=== PATIENT | female | born 1995 | race Caucasian/White ===

== ENCOUNTER 2020-10-14 14:27 | Emergency (ER) | payer OTHER ==
[2020-10-14 15:15] LABS: Absolute Lymphocytes (CBC) 1.8 K/uL (0.7-4.9); Basophils % 0.8 % (0-1.3); Hematocrit 34.8 % (36.0-45.0); Lymphocytes % 20.4 % (15.3-44.8); RBC Red Blood Cell Count 4.15 M/uL (3.86-4.86)
[2020-10-14 15:29] LABS: ALT/SGPT 15 U/L (12-78); AST/SGOT 12 U/L (15-37); Albumin 3.5 g/dL (3.4-5.0); Alkaline Phosphatase 81 U/L (45-117); BUN Blood Urea Nitrogen 4 mg/dL (7-18); Bicarbonate 23 mmol/L (21-32); Bilirubin Direct 0.1 mg/dL (0-0.2); Bilirubin Total 0.4 mg/dL (0.2-1.0); Glucose Level 99 mg/dL (74-106); Lipase 110 U/L (73-393); Potassium 3.6 mmol/L (3.5-5.1); Protein, Total 7.6 g/dL (6.4-8.2); Sodium Level 138 mmol/L (136-145)
[2020-10-14 15:52] LABS: Urine Blood NEGATIVE (NEG); Urine Glucose NEGATIVE (NEG); Urine Protein TRACE (NEG); Urine Specific Gravity 1.015 (1.005-1.030); Urine pH >8.5 (5.0-7.0)
[2020-10-14 15:55] LABS: Urine Amorphous Sediment 4+ /HPF (NONE SEEN); Urine Bacteria <20 /HPF (<20); Urine Culture Reflex Order NOT NEEDED; Urine RBC <5 /HPF (NONE SEEN)
[2020-10-14] MEDS ORDERED: LIDOCAINE VISCOUS 2% SOLN 15 ML UDC ONE (16:19)
[2020-10-14] MEDS ORDERED: NA CHLORIDE 0.9% 1,000 ML ONE (16:19)
[2020-10-14] MEDS ORDERED: MAGNES/ALUMIN/SIMET 30ML UCUP ONE (16:19)
[2020-10-14] MEDS ORDERED: PROMETHAZINE INJ 25 MG/ML AMP ONE (16:19)
[2020-10-14 16:30] LABS: HCG, Quantitative 17959 mIU/mL (1-3)
--- NOTE | 2020-10-14 18:52 | EDPHYS ---
Physician Documentation [facility] Name: Abigail Arias Age: 25 yrs Sex: Female : 1995 Arrival Date: 10/14/2020 Time: 14:29 Bed 26 Private MD: SANG Physician Mert Plasencia HPI: 10/14 16:20 This 25 yrs old Female presents to ER via Ambulatory with complaints of snw Epigastric Pain, Back Pain, Vomiting. 16:20 The patient presents with abdominal pain in the epigastric area. Onset: The snw symptoms/episode began/occurred gradually, 3 day(s) ago, and became persistent. The symptoms do not radiate. Associated signs and symptoms: Pertinent positives: nausea and vomiting. The symptoms are described as achy. Severity of pain: At its worst the pain was moderate severe. The patient has not experienced similar symptoms in the past. It is unknown whether or not the patient has recently seen a physician. . Historical: - Allergies: 14:46 No Known Allergies; jd3 - Home Meds: 14:46 None [Active]; jd3 - PMHx: 14:46 None; jd3 - PSHx: 14:46 c section; jd3 - Immunization history:: Adult Immunizations up to date. - Social history:: Smoking status: Patient reports the use of cigarette tobacco products, smokes one-half pack cigarettes per day. ROS: 16:19 Constitutional: Negative for fever, chills, and weight loss, Eyes: Negative for injury, snw pain, redness, and discharge, ENT: Negative for injury, pain, and discharge, Neck: Negative for injury, pain, and swelling. 16:19 Back: Negative for injury and pain, : Negative for injury, bleeding, discharge, and swelling, MS/Extremity: Negative for injury and deformity, Skin: Negative for injury, rash, and discoloration, Neuro: Negative for headache, weakness, numbness, tingling, and seizure. 16:19 Cardiovascular: Positive for chest pain. 16:19 Respiratory: Positive for shortness of breath, at rest. 16:19 Abdomen/GI: Positive for nausea and vomiting. 16:19 Psych: Positive for anxiety, panic attacks. Exam: 16:19 Constitutional: This is a well developed, well nourished patient who is awake, alert, snw and in no acute distress. Head/Face: Normocephalic, atraumatic. Eyes: Pupils equal round and reactive to light, extra-ocular motions intact. Lids and lashes normal. Conjunctiva and sclera are non-icteric and not injected. Cornea within normal limits. Periorbital areas with no swelling, redness, or edema. ENT: Nares patent. No nasal discharge, no septal abnormalities noted. Tympanic membranes are normal and external auditory canals are clear. Oropharynx with no redness, swelling, or masses, exudates, or evidence of obstruction, uvula midline. Mucous membranes moist. Neck: Trachea midline, no thyromegaly or masses palpated, and no cervical lymphadenopathy. Supple, full range of motion without nuchal rigidity, or vertebral point tenderness. No Meningismus. Chest/axilla: Normal chest wall appearance and motion. Nontender with no deformity. No lesions are appreciated. Cardiovascular: Regular rate and rhythm with a normal S1 and S2. No gallops, murmurs, or rubs. Normal PMI, no JVD. No pulse deficits. Respiratory: Lungs have equal breath sounds bilaterally, clear to auscultation and percussion. No rales, rhonchi or wheezes noted. No increased work of breathing, no retractions or nasal flaring. Back: No spinal tenderness. No costovertebral tenderness. Full range of motion. Skin: Warm, dry with normal turgor. Normal color with no rashes, no lesions, and no evidence of cellulitis. MS/ Extremity: Pulses equal, no cyanosis. Neurovascular intact. Full, normal range of motion. Neuro: Awake and alert, GCS 15, oriented to person, place, time, and situation. Cranial nerves II-XII grossly intact. Motor strength 5/5 in all extremities. Sensory grossly intact. Cerebellar exam normal. Normal gait. 16:19 Abdomen/GI: Inspection: abdomen appears normal, Bowel sounds: normal, Palpation: abdomen is soft and non-tender. 16:19 Psych: Behavior/mood is pleasant, anxious, Affect is animated. Vital Signs: 14:39 BP 101 / 74; Pulse 85; Resp 16; Pulse Ox 100% on R/A; Weight 79.38 kg; Height 5 ft. 4 iw in. (162.56 cm); Pain 9/10; 15:00 BP 110 / 70; Pulse 85; Resp 16; Pulse Ox 100% on R/A; zb 16:00 BP 114 / 66; Pulse 80; Resp 16 S; Pulse Ox 100% on R/A; zb 17:35 BP 105 / 63; Pulse 83; Resp 18; Pulse Ox 99% on R/A; zb 18:35 BP 106 / 57; Pulse 77; Resp 18; Pulse Ox 100% on R/A; zb 14:39 Body Mass Index 30.04 (79.38 kg, 162.56 cm) iw MDM: 14:45 Patient medically screened. mira 18:55 Data reviewed: vital signs, nurses notes. Data interpreted: Pulse oximetry: on room air snw is 99 %. Interpretation: normal. Counseling: I had a detailed discussion with the patient and/or guardian regarding: the historical points, exam findings, and any diagnostic results supporting the discharge/admit diagnosis, lab results, radiology results, the need for outpatient follow up, to return to the emergency department if symptoms worsen or persist or if there are any questions or concerns that arise at home, smoking cessation. Special discussion: Based on the patient's history, exam, and Dx evaluation, there is no indication for emergent intervention or inpatient Tx. It is understood by the patient/guardian that if the Sx's persist or worsen they need to return immediately for re-evaluation. Based on the patient's Hx, exam, and Dx evaluation, there is no indication for emergent surgery or inpatient Tx. It is understood by the patient/guardian that if the Sx's persist or worsen they need to return immediately for re-evaluation. Based on the history and exam findings, there is no indication for further emergent testing or inpatient evaluation. I discussed with the patient/guardian the need to see the OB Gyne specialist for further evaluation of the symptoms. I discussed with the patient/guardian the need to see the primary care provider for further evaluation of the symptoms. 10/14 14:42 Order name: Basic Metabolic Panel; Complete Time: 16:41 snw 10/14 14:42 Order name: CBC with Diff; Complete Time: 15:21 snw 10/14 14:42 Order name: Hepatic Function; Complete Time: 16:41 snw 10/14 14:42 Order name: Lipase; Complete Time: 16:41 snw 10/14 14:42 Order name: Urine Microscopic Only; Complete Time: 15:56 snw 10/14 15:20 Order name: Urine Dipstick--Ancillary (enter results) 10/14 15:20 Order name: Urine --Ancillary (enter results) 10/14 15:21 Order name: Urine Dipstick-Ancillary; Complete Time: 15:56 EDMS 10/14 15:21 Order name: Urine --Ancillary; Complete Time: 15:56 EDMS 10/14 15:34 Order name: Add On-Lab snw 10/14 15:52 Order name: HCG, Quantitative; Complete Time: 16:41 EDMS 10/14 17:44 Order name: Matter Eval Tm 1 EDDC 10/14 14:42 Order name: IV Saline Lock; Complete Time: 15:07 snw 10/14 14:42 Order name: Labs collected and sent; Complete Time: 15:07 snw 10/14 14:42 Order name: Urine Test (obtain specimen); Complete Time: 15:26 snw 10/14 14:42 Order name: Urine Dipstick-Ancillary (obtain specimen); Complete Time: 15:26 snw Administered Medications: 16:10 Drug: NS 0.9% 1000 ml Route: IV; Rate: 1 bolus; Site: right antecubital; zb 17:20 Follow up: Response: No adverse reaction; IV Status: Completed infusion; IV Intake: zb 1000ml 16:10 Drug: GI Cocktail without - (Maalox Suspension 30 ml, Lidocaine Liquid 2 % 15 zb ml) Route: PO; 17:02 Follow up: Response: No adverse reaction zb 16:10 Drug: Phenergan 6.25 mg Route: IVP; Site: right femoral; zb 16:40 Follow up: Response: No adverse reaction; Nausea unchanged zb Disposition: 10/15 09:28 Co-signature as Attending Physician, Mert Plasencia MD I agree with the assessment and mira plan of care. Disposition: 10/14/20 18:51 Discharged to Home. Impression: related conditions, unspecified, first trimester, Chest pain, unspecified. - Condition is Stable. - Discharge Instructions: Nonspecific Chest Pain, Nausea and Vomiting, Adult, and Smoking, First Trimester of , Rehydration, Adult. - Prescriptions for Tums - take 1 unit by ORAL route 2-3 times daily; 1 bottle. promethazine 25 mg Oral Tablet - take 1 tablet by ORAL route every 6 hours As needed; 20 tablet. - Work release form, Medication Reconciliation Form, Thank You Letter, Antibiotic Education, Prescription Opioid Use form. - Follow up: Emergency Department; When: As needed; Reason: Worsening of condition. Follow up: Private Physician; When: 1 - 2 days; Reason: Recheck today's complaints, Continuance of care, Re-evaluation by your physician. Signatures: Dispatcher [employer] EDDC Mert Plasencia, Neelima Serra MD, cha, SUPERVISOR WATERPROOFING-C SUPERVISOR WATERPROOFING-Csnw Yaya Lance RN RN Denisse Scott RN RN zb Corrections: (The following items were deleted from the chart) 10/14 17:44 16:45 Transvaginal Ob+US.RAD.BRZ ordered. [facility] 19:13 18:51 10/14/2020 18:51 Discharged to Home. Impression: related conditions, zb unspecified, first trimester; Chest pain, unspecified. Condition is Stable. Forms are Medication Reconciliation Form, Thank You Letter, Antibiotic Education, Prescription Opioid Use. Follow up: Emergency Department; When: As needed; Reason: Worsening of condition. Follow up: Private Physician; When: 1 - 2 days; Reason: Recheck today's complaints, Continuance of care, Re-evaluation by your physician. snw
--- NOTE | 2020-10-14 18:52 | ER ---
Nurse's Notes [facility] Name: Abigail Arias Age: 25 yrs Sex: Female : 1995 Arrival Date: 10/14/2020 Time: 14:29 Bed 26 Private MD: Diagnosis: related conditions, unspecified, first trimester;Chest pain, unspecified Presentation: 10/14 14:39 Chief complaint: Patient states: vomiting all weekend and having sharp pains in chest iw and sides and stomach, and is hard to breathe some time, and also is having more panic attacks. Coronavirus screen: headache, vomiting. Ebola Screen: Patient negative for fever greater than or equal to 101.5 degrees Fahrenheit, and additional compatible Ebola Virus Disease symptoms Patient denies exposure to infectious person. Patient denies travel to an Ebola-affected area in the 21 days before illness onset. No symptoms or risks identified at this time. Initial Sepsis Screen: Does the patient meet any 2 criteria? No. Patient's initial sepsis screen is negative. Does the patient have a suspected source of infection? No. Patient's initial sepsis screen is negative. Risk Assessment: Do you want to hurt yourself or someone else? Patient reports no desire to harm self or others. 14:39 Method Of Arrival: Ambulatory iw 14:39 Acuity: TRENT 3 iw 15:30 Onset of symptoms was October 10, 2020. zb Historical: - Allergies: 14:46 No Known Allergies; jd3 - Home Meds: 14:46 None [Active]; jd3 - PMHx: 14:46 None; jd3 - PSHx: 14:46 c section; jd3 - Immunization history:: Adult Immunizations up to date. - Social history:: Smoking status: Patient reports the use of cigarette tobacco products, smokes one-half pack cigarettes per day. Screenin:46 Abuse screen: Denies threats or abuse. Nutritional screening: No deficits noted. jd3 Tuberculosis screening: No symptoms or risk factors identified. Fall Risk Ambulatory Aid- None/Bed Rest/Nurse Assist (0 pts). Gait- Normal/Bed Rest/Wheelchair (0 pts) Mental Status- Oriented to own ability (0 pts). Total Casas Fall Scale indicates No Risk (0-24 pts). Assessment: 14:50 General: Appears in no apparent distress. uncomfortable, Behavior is cooperative, zb anxious, Reports feeling ill for fatigue for. Pain: Complains of pain in xyphoid area and mid-sternal area. Neuro: Level of Consciousness is awake, alert, obeys commands, Oriented to person, place, time. Cardiovascular: Reports chest pain, fatigue, nausea, Capillary refill < 3 seconds in bilateral fingers. Respiratory: Airway is patent Respiratory effort is even, unlabored. GI: Abdomen is round non-distended, Reports upper abdominal pain, epigastric pain, nausea. : No signs and/or symptoms were reported regarding the genitourinary system. EENT: No signs and/or symptoms were reported regarding the EENT system. Derm: Skin is intact, is healthy with good turgor, Skin is pink, warm \T\ dry. Musculoskeletal: Circulation, motion, and sensation intact. 16:10 Reassessment: pt received nausea medication, actively vomiting after taking po zb medication. informed ECP. p. 17:34 Reassessment: Patient appears in no apparent distress at this time. Patient and/or zb family updated on plan of care and expected duration. Pain level reassessed. Patient is alert, oriented x 3, equal unlabored respirations, skin warm/dry/pink. US at bedside. 18:30 Reassessment: Patient appears in no apparent distress at this time. Patient and/or zb family updated on plan of care and expected duration. Pain level reassessed. Patient is alert, oriented x 3, equal unlabored respirations, skin warm/dry/pink. pt resting at bedside. nausea has subsided. 19:00 Reassessment: Patient appears in no apparent distress at this time. Patient and/or zb family updated on plan of care and expected duration. Pain level reassessed. Patient is alert, oriented x 3, equal unlabored respirations, skin warm/dry/pink. pt received D/C information. ambulatory. waiting family in the lobby. Vital Signs: 14:39 BP 101 / 74; Pulse 85; Resp 16; Pulse Ox 100% on R/A; Weight 79.38 kg; Height 5 ft. 4 iw in. (162.56 cm); Pain 9/10; 15:00 BP 110 / 70; Pulse 85; Resp 16; Pulse Ox 100% on R/A; zb 16:00 BP 114 / 66; Pulse 80; Resp 16 S; Pulse Ox 100% on R/A; zb 17:35 BP 105 / 63; Pulse 83; Resp 18; Pulse Ox 99% on R/A; zb 18:35 BP 106 / 57; Pulse 77; Resp 18; Pulse Ox 100% on R/A; zb 14:39 Body Mass Index 30.04 (79.38 kg, 162.56 cm) iw ED Course: 14:29 Patient arrived in ED. as 14:41 Triage completed. iw 14:41 Neelima Zhu FNP-C is PHCP. snw 14:41 Mert Plasencia MD is Attending Physician. snw 14:45 Denisse Das, JOBY is Primary Nurse. zb 14:46 Arm band placed on. jd3 14:46 Patient has correct armband on for positive identification. Bed in low position. Call jd3 light in reach. Side rails up X 1. Pulse ox on. NIBP on. 15:07 Accessed peripheral vein via ultrasound, utilizing dynamic ultrasound technique using jd3 20G Nexia IV catheter ,sterile technique, per hospital protocol. Clean \T\ dry. Dressing intact. Good blood return. Flushes easily. placed to the right AC. 17:46 Matter Eval Tm 1 In Process Unspecified. EDMS 19:00 No provider procedures requiring assistance completed. IV discontinued, intact, zb bleeding controlled, No redness/swelling at site. Pressure dressing applied. Administered Medications: 16:10 Drug: NS 0.9% 1000 ml Route: IV; Rate: 1 bolus; Site: right antecubital; zb 17:20 Follow up: Response: No adverse reaction; IV Status: Completed infusion; IV Intake: zb 1000ml 16:10 Drug: GI Cocktail without - (Maalox Suspension 30 ml, Lidocaine Liquid 2 % 15 zb ml) Route: PO; 17:02 Follow up: Response: No adverse reaction zb 16:10 Drug: Phenergan 6.25 mg Route: IVP; Site: right femoral; zb 16:40 Follow up: Response: No adverse reaction; Nausea unchanged zb Intake: 17:20 IV: 1000ml; Total: 1000ml. zb Outcome: 18:51 Discharge ordered by . snw 19:00 Discharged to home ambulatory. zb 19:00 Condition: good 19:00 Discharge instructions given to Instructed on discharge instructions, follow up and referral plans. medication usage, Demonstrated understanding of instructions, Prescriptions given X 2. 19:13 Patient left the ED. zb Signatures: Dispatcher [employer] Neelima Siddiqi, WILDLIFE FORENSIC GENETICIST-C WILDLIFE FORENSIC GENETICIST-CsnEmily Trevino Irene, RN RN iw Davies, Jonathon, RN RN jd3 Brown, Zipporah, RN RN zbailee Corrections: (The following items were deleted from the chart) 52 19:00 Discharged to home via wheelchair, zb zb 52 19:00 Condition: good zb zb 52 19:00 Discharge instructions given to patient, family, Instructed on discharge zb instructions, follow up and referral plans. medication usage, Demonstrated understanding of instructions, follow-up care, medications, Prescriptions given X 3, zb 19:54 19:00 Reassessment: Patient appears in no apparent distress at this time. Patient zb and/or family updated on plan of care and expected duration. Pain level reassessed. Patient is alert, oriented x 3, equal unlabored respirations, skin warm/dry/pink. pt received D/C information. Family at bedside. ECP discussed information with patient. IV removed. Transported via wheelchair. zb 19: 19:00 LMP N/A - Post-menopause zb zb
--- NOTE | 2020-10-14 19:30 | RAD REPORT ---
EXAM DESCRIPTION: US - Matter Eval Tm 1 - 10/14/2020 5:45 pm CLINICAL HISTORY: Abdominal cramping, COMPARISON: None. FINDINGS: A single intrauterine gestation is identified. Heart rate is 158 bpm. No hematoma, mass or other suspicious finding. [place]-rump length, abdominal circumference and femur length measurements c orrespond to a 13 W 2 D age. LILIANA is 04/19/2021. No suspicion for placental abnormality. Amniotic flui d volume is normal. Gestational sac has a normal configuration. Cervical canal is closed. Uterine size overall is normal. Focal isoechoic mass posterior wall is believed to be contraction rat her than fibroid or the true mass lesion. Right ovary is identified and shows no suspicious finding. No right adnexal mass. Blood or fluid in t he cul de sac. Left ovary is not clearly seen. Bowel gas limits detail. No left adnexal mass seen. IMPRESSION: Single 13 W 2 D intrauterine gestation. LILIANA is 04/19/2021. No intrauterine suspicious finding. No adnexal suspicious finding.
[2020-10-14 23:03] VITALS: BP 106/57; O2SAT 100
== END 2020-10-14 19:13 | disposition home or self-care (01) ==
LOC: ER 14:27
DX: O26.891 Other specified pregnancy related conditions, first trimester (principal); O99.331 Smoking (tobacco) complicating pregnancy, first trimester; F17.210 Nicotine dependence, cigarettes, uncomplicated; Z3A.13 13 weeks gestation of pregnancy
CPT/HCPCS: 96361; 85025; 80048; 36415; 81025; 80076; 84702; 83690; 76801; 96374; 99284; J2550; J7030; 81003; 81015

== ENCOUNTER 2025-01-03 08:46 | Inpatient (IN) | payer OTHER ==
--- OUTSIDE RECORDS SUMMARY | 2025-01-03 08:50 | XMS REPORT | Continuity of Care Document ---
Author Name Unknown Address [address] [place] [address] Organization [facility] thconnect Address [address] [place] [address] Care Team Providers Care Lead Web Developer Name Role Phone Pcp, Patient Does Not Have A Primary Care Physic costa [email or web address] Attending Clinician Unavaila ble DAVID SHI Attending Clinician Unavail able Nurse, Adc Pob Immunization Attending Clinician Unavailable David Shi DO Attending Clinician GIANNA ZAMBRANO Attending Clinician Unavailable CARSON VITAL Attending Clinician UnavailGianna Gomez MD Attending Clinician 2, [facility] Lab Attending Clinician Unavailable Doctor Unassigned, [place] Attending Clinician U navailable GIANNA ZAMBRANO Admitting Clinician Unavailable [email or web address] Admitting Clinician Unavaila ble Payers Payer Name Policy Type Policy Number Effective Date Expirati on Date Source MEDICARE PART A \T\ B [id number] 2013 00:00:00 [place] [id number] 2017 00[facility]00:[id number]00 Problems Condition Name Condition Details Condition Category Status Onset Date Resolution Date Last Treatment Date Treating Clinician Comments Source Previous section Previous section Disease Active 04-15 00:00: 00 [facility] Single liveborn, born in hospital, delivered by section Single liveborn, born in hospital, delivered by section Disease Active 5-25 00:00: 00 [facility] Supervisio n of high-risk with insufficie nt care in third trimester Supervisio n of high-risk with insufficie nt care in third trimester Disease Active 2019-11 00:00: 00 [facility] 39 weeks gestation of 39 weeks gestation of Disease Active 2019-11 00:00: 00 [facility] High-risk in second trimester High-risk in second trimester Disease Active 2019-11 00:00: 00 [facility] 17 weeks gestation of 17 weeks gestation of Disease Active 2019-11 00:00: 00 [facility] Previous section complicati ng Previous section complicati ng Disease Active 2016-11 00:00: 00 [facility] Allergies, Adverse Reactions, Alerts Allergy Name Allergy Type Status Severity Reaction(s) Onset Date Inactive Date Treating Clinician Comments Source none (Not Checked) Propensi ty to adverse reaction to drug Active 04-27 00:00: 00 Allen Hernandez NO KNOWN ALLERGIE S Drug Class Active [facility] Social History Social Habit Start Date Stop Date Quantity Comments Source ASSERTION 2020-07-28 00:00:00 [facility] History of tobacco use 2010-10-22 00:00:00 Cigarette Smoker [facility] Exposure to SARS-CoV-2 (event) Not sure [facility] Tobacco use and exposure 2020-11-12 00:00:00 2020-11-12 00:00:00 Never used [facility] Alcohol intake 2020-11-12 00:00:00 2020-11-12 00:00:00 Ex-drinker (finding) [facility] Tobacco Comment 2020-11-12 00:00:00 2020-11-12 00:00:00 2 ciggs a day [facility] Sex Assigned At 1995 00:00:00 1995 00:00:00 [facility] Smoking Status Start Date Stop Date Source Former smoker 2021-04-16 00:00:00 2021-04-16 00:00:00 [facility] Current every day smoker 2020-11-12 00:00:00 [facility] Medications Ordered Medication Name Filled Medication Name Start Date Stop Date Current Medication? Ordering Clinician Indication Dosage Frequency Signature (SIG) Comments Components Source Carafate 1 gram tablet 12-15 00:00: 00 Yes 1gram Allen Hernandez omeprazole 20 mg capsule,del ayed release 12-15 00:00: 00 Yes 1mg Allen Hernandez Wellbutrin SR 150 mg tablet, 12 hr sustained-r elease 2023-11 0-14 00:00: 00 Yes 1mg Allen Hernandez Lamictal 25 mg tablet 2023-11 0-14 00:00: 00 Yes 2mg Allen Hernandez bupropion HCl SR 200 mg tablet,12 hr sustained-r elease 2023-11 0-14 00:00: 00 Yes 1mg Allen Hernandez Abilify 10 mg tablet 2023-11 0-14 00:00: 00 Yes 1mg Allen Hernandez Lamictal 25 mg tablet 0 -30 00:00: 00 Yes 2mg Allen Hernandez Abilify 10 mg tablet 0 -30 00:00: 00 Yes 1mg Allen Hernandez Wellbutrin SR 150 mg tablet, 12 hr sustained-r elease -19 00:00: 00 Yes 1mg Allen Hernandez Abilify 15 mg tablet 2023-0 9-19 00:00: 00 Yes 5mg Allen Hernandez Lamictal 25 mg tablet 0 9-19 00:00: 00 Yes 1mg Allen Hernandez Abilify 15 mg tablet 0 8-21 00:00: 00 Yes 5mg Allen Hernandez gabapentin 100 mg capsule 0 8-21 00:00: 00 Yes 1mg Allen Hernandez Abilify 10 mg tablet 0 7-30 00:00: 00 Yes 1mg Allen Hernandez gabapentin 100 mg capsule 2023-0 7-30 00:00: 00 Yes 1mg Allen Hernandez Abilify 5 mg tablet 7-16 00:00: 00 Yes 1mg Allen Hernandez Wellbutrin SR 150 mg tablet, 12 hr sustained-r elease 2023-0 -16 00:00: 00 Yes 1mg Allen Hernandez propranolol 10 mg tablet 2023-0 -16 00:00: 00 Yes 1mg Allen Hernandez buspirone 7.5 mg tablet 2023-0 -16 00:00: 00 Yes 1mg Allen Hernandez Abilify 5 mg tablet 2023-0 - 00:00: 00 Yes 1mg Allen Hernandez bupropion HCl SR 150 mg tablet,12 hr sustained-r elease 2023-0 - 00:00: 00 Yes 1mg Allen Hernandez buspirone 5 mg tablet 2023-0 - 00:00: 00 Yes 1mg Allen Hernandez hydroxyzine HCl 50 mg tablet 0 - 00:00: 00 Yes 1mg Allen Hernandez Abilify 5 mg tablet 2023-0 -18 00:00: 00 Yes 1mg Allen Hernandez bupropion HCl SR 150 mg tablet,12 hr sustained-r elease 2023-0 -18 00:00: 00 Yes 1mg Allen Hernandez hydroxyzine HCl 50 mg tablet 2023-0 6-18 00:00: 00 Yes 1mg Allen Hernandez buspirone 5 mg tablet 2023-0 6-18 00:00: 00 Yes 1mg Allen Hernandez meloxicam 15 mg tablet 2023-0 6-06 00:00: 00 Yes 1mg Allen Hernandez Abilify 5 mg tablet 2023-0 6-06 00:00: 00 Yes 1mg Allen Hernandez bupropion HCl SR 150 mg tablet,12 hr sustained-r elease 2023-0 6-06 00:00: 00 Yes 1mg Allen Hernandez buspirone 5 mg tablet 2023-0 6-06 00:00: 00 Yes 1mg Allen Hernandez hydroxyzine HCl 50 mg tablet 2023-0 6-06 00:00: 00 Yes 1mg Allen Hernandez furosemide 20 mg tablet 2023-0 5-21 00:00: 00 Yes 1mg Allen Hernandez bupropion HCl SR 150 mg tablet,12 hr sustained-r elease 03-29 00:00: 00 Yes 1mg Allen Hernandez Abilify 5 mg tablet 0 03-29 00:00: 00 Yes 1mg Allen Hernandez hydroxyzine HCl 50 mg tablet 0 03-29 00:00: 00 Yes 1mg Allen Hernandez BUPROP 12 SR 100MG 03-22 00:00: 00 Yes Allen Hernandez HYDROXYZ HCL 50MG 03-22 00:00: 00 Yes 50 Allen Hernandez Abilify 5 mg tablet 03-20 00:00: 00 Yes 1mg Allen Hernandez bupropion HCl SR 100 mg tablet,12 hr sustained-r elease 03-20 00:00: 00 Yes 1mg Allen Hernandez hydroxyzine HCl 50 mg tablet 03-20 00:00: 00 Yes 1mg Allen Hernandez TAKE 1 TAB BY MOUTH EVERY SIX HOURS NEEDED FOR ANXIETY 03-16 00:00: 00 Yes 50 Allen Hernandez TAKE 1 TABLET DAILY. 03-16 00:00: 00 Yes 5 Allen Hernandez TAKE 1 TABLET DAILY. 03-16 00:00: 00 Yes 100 Allen Hernandez Zoloft 50 mg tablet 03-01 00:00: 00 Yes 1mg Allen Hernandez Abilify 5 mg tablet 03-01 00:00: 00 Yes 1mg Allen Hernandez hydroxyzine HCl 50 mg tablet 03-01 00:00: 00 Yes 1mg Allen Hernandez SERTRALINE 50MG 03-01 00:00: 00 Yes Allen Hernandez FLUOXETIN(P ) 20MG 02-22 00:00: 00 Yes Allen Hernandez TAKE 1 TABLET DAILY. 02-13 00:00: 00 Yes 25 Allen Hernandez SERTRALINE 25MG 02-13 00:00: 00 Yes Allen Hernandez TAKE 1 TABLET DAILY. 02-13 00:00: 00 04-04 00:00 :00 No 5 Allen Hernandez TAKE 1 CAPSULE BY MOUTH DAILY (FOR A TOTAL OF 30 MG) 02-13 00:00: 00 04-04 00:00 :00 No 20 Allen F David TAKE 1 TAB BY MOUTH EVERY SIX HOURS NEEDED FOR ANXIETY 02-13 00:00: 00 04-04 00:00 :00 No 50 Allen F David FLUOXETIN(P ) 40MG 01-24 00:00: 00 Yes Allen Hernandez TAKE 1 CAPSULE BY MOUTH ONCE DAILY 01-23 00:00: 00 04-04 00:00 :00 No 40 Allen Hernandez TAKE 1 TAB BY MOUTH EVERY SIX HOURS NEEDED FOR ANXIETY 01-23 00:00: 00 04-04 00:00 :00 No 50 Allen F David TAKE 1 TABLET DAILY. 01-23 00:00: 00 04-04 00:00 :00 No 5 Allen Kahlil Hernandez ARIPIPRAZOL E 5MG 01-17 00:00: 00 Yes Allen Hernandez TAKE 1 TABLET DAILY. 01-17 00:00: 00 04-04 00:00 :00 No 5 Allen Kahlil Hernandez TAKE 1 CAPSULE BY MOUTH DAILY (FOR A TOTAL OF 30 MG) 01-17 00:00: 00 04-04 00:00 :00 No 10 Allen Hernandez TAKE 1 TAB BY MOUTH EVERY SIX HOURS NEEDED FOR ANXIETY 01-17 00:00: 00 04-04 00:00 :00 No 50 Allen Hernandez TAKE 1 CAPSULE BY MOUTH DAILY (FOR A TOTAL OF 30 MG) 01-17 00:00: 00 04-04 00:00 :00 No 20 Allen Kahlil Hernandez TAKE 1 TAB BY MOUTH EVERY SIX HOURS NEEDED FOR ANXIETY 01-02 00:00: 00 04-04 00:00 :00 No 50 Allen F David TAKE 1 TABLET DAILY. 2- 00:00: 00 04-04 00:00 :00 No 5 Allen F David TAKE 1 CAPSULE BY MOUTH DAILY (FOR A TOTAL OF 30 MG) 12-27 00:00: 00 Yes Allen F David TAKE 1 CAPSULE BY MOUTH DAILY (FOR A TOTAL OF 30 MG) 12-27 00:00: 00 04-04 00:00 :00 No 20 Allen Kahlil Hernandez TAKE 1 CAPSULE EVERY MORNING. 12-13 00:00: 00 04-04 00:00 :00 No 20 Allen F David TAKE 1 TABLET DAILY. 12-13 00:00: 00 04-04 00:00 :00 No 5 Allen F David TAKE 1 TAB BY MOUTH EVERY SIX HOURS NEEDED FOR ANXIETY 12-13 00:00: 00 04-04 00:00 :00 No 50 Allen Kahlil Hernandez ARIPIPRAZOL E 5MG 11-30 00:00: 00 Yes Allen F David FLUOXETIN(P ) 20MG 11-30 00:00: 00 Yes Allen Kahlil Hernandez TAKE 1 TABLET DAILY. 11-30 00:00: 00 04-04 00:00 :00 No 5 Allen Kahlil Hernandez TAKE 1 CAPSULE EVERY MORNING. 11-30 00:00: 00 04-04 00:00 :00 No 20 Allen Kahlil Hernandez TAKE ONE TABLET TWICE A DAILY NEEDED FOR ANXIETY 11-30 00:00: 00 04-04 00:00 :00 No 20 Allen F David PROPRANOLOL 20MG 2022-11 00:00: 00 04-04 00:00 :00 No Allen Kahlil Hernandez ARIPIPRAZOL E 2MG 2022-11 00:00: 00 Yes 2000 Allen Kahlil Hernandez TAKE ONE TABLET TWICE DAILY NEEDED FOR ANXIETY 2022-11 00:00: 00 04-04 00:00 :00 No 20 Allen F David TAKE ONE TABLET BY MOUTH DAILY 2022-11 00:00: 00 04-04 00:00 :00 No 10 Allen F David TAKE 1 TABLET DAILY. 2022-11 00:00: 00 04-04 00:00 :00 No 2 Allen Kahlil Hernandez TAKE 1 TABLET BY MOUTH EVERY DAY 2022-11 0 00:00: 00 Yes Allen F David FLUOXETIN(P ) 10MG 2022-11 0-25 00:00: 00 Yes Allen Hernandez TAKE 1 TABLET DAILY. 2022-11 0-25 00:00: 00 04-04 00:00 :00 No 2 Allen Hernandez TAKE ONE TABLET BY MOUTH DAILY 2022-11 0-25 00:00: 00 04-04 00:00 :00 No 10 Allen Hernandez TAKE ONE TABLET TWICE A DAILY NEEDED FOR ANXIETY 2022-11 0-12 00:00: 00 04-04 00:00 :00 No 20 Allen Hernandez TAKE ONE TABLET TWICE A DAILY NEEDED FOR ANXIETY 8-16 00:00: 00 04-04 00:00 :00 No 20 Allen Hernandez TAKE ONE TABLET DAILY AFTER A LARGE MEAL 0 8-16 00:00: 00 04-04 00:00 :00 No 20 Allenberenice Hernandez TAKE ONE TABLET TWICE A DAILY NEEDED FOR ANXIETY 516 00:00: 00 04-04 00:00 :00 No 20 Allen Hernandez TAKE 1 TABLET AT BEDTIME. 0 5-16 00:00: 00 04-04 00:00 :00 No 15 Allen Hernandez TAKE 1 TABLET BY MOUTH 3 TIMES DAILY BEFORE MEALS 3-04 00:00: 00 04-04 00:00 :00 No 10 Allenberenice Hernandez TAKE 1 TABLET 3 TIMES DAILY BEFORE MEALS. 2-07 00:00: 00 04-04 00:00 :00 No 10 Allenberenice Hernandez Dose Unknown 2021-11 0-24 00:00: 00 Yes Allen Kahlil Hernandez &lt 2021-0 8-03 00:00: 00 Yes Allen F David NORTREL 0.5/35 (28) 0.5/35 0 6-21 00:00: 00 Yes Allen F David Dose Unknown 0 3-28 00:00: 00 Yes Allen F David Dose Unknown 0 3-28 00:00: 00 Yes Allen F David Dose Unknown 0 3-28 00:00: 00 Yes Allen Hernandez TAKE 1 TABLET BY MOUTH EVERY DAY 0 3-28 00:00: 00 Yes Allen F David norethindro ne (contracept mynor) 0.35 mg tablet 06-09 00:00: 00 Yes 1mg Allen Hernandez HYDROcodone -acetaminop hen 5-325 mg tablet 04-17 00:00: 00 Yes [id number] 1{tbl} Take 1 tablet by mouth every 6 (six) hours as needed for Pain (scale 7-10). Indication s: acute pain [facility] ibuprofen 800 mg tablet 04-17 00:00: 00 Yes [id number] 800mg Take 1 tablet by mouth every 8 (eight) hours. [facility] docusate calcium 240 mg capsule 04-17 00:00: 00 Yes [id number] 240mg Take 1 capsule by mouth once daily as needed for Constipati on. [facility] ferrous sulfate 325 mg (65 mg iron) tablet 04-17 00:00: 00 Yes [id number] 325mg Take 1 tablet by mouth 2 (two) times daily. [facility] multivitami n ( VITAMIN) tablet 2019-11 00:00: 00 Yes 1{tbl} Take 1 tablet by mouth daily. [facility] meloxicam 15 mg tablet 01-12 00:00: 00 Yes 1mg Allen Hernandez gabapentin 100 mg capsule 01-12 00:00: 00 Yes 1mg Allen Hernandez ferrous sulfate 325 mg (65 mg iron) tablet 2016-11 00:00: 00 11-12 00:00 :00 No 325mg Take 1 tablet by mouth 2 (two) times daily. [facility] docusate calcium 240 mg capsule 2016-11 00:00: 00 11-12 00:00 :00 No 240mg Take 1 capsule by mouth once daily as needed for Constipati on. [facility] HYDROcodone -acetaminop hen 5-325 mg tablet 2016-11 00:00: 00 11-12 00:00 :00 No 1{tbl} Take 1 tablet by mouth every 6 (six) hours as needed for Pain (scale 4-6) or Pain (scale 7-10) (Pain scale above 4). [facility] ibuprofen 600 mg tablet 2016-11 00:00: 00 11-12 00:00 :00 No 600mg Take 1 tablet by mouth every 6 (six) hours as needed for Pain (scale 1-3) or Pain (scale 4-6) (Pain). Take with food or milk. [facility] vitamin w/FA tablet 2016-11 00:00: 00 11-12 00:00 :00 No 1{tbl} Take 1 tablet by mouth daily. [facility] promethazin e 25 mg tablet 04-13 00:00: 00 Yes 51mg Allen Hernandez ferrous sulfate 325 mg (65 mg iron) tablet,melani yed release 04-13 00:00: 00 Yes 1(65 mg iron) Allen Hernandez promethazin e 25 mg tablet 06-23 00:00: 00 Yes 1mg Allen Hernandez promethazin e 12.5 mg tablet 03-24 00:00: 00 Yes 1mg Allen Hernandez Vital Signs Vital Name Observation Time Observation Value Comments S ource Systolic blood pressure 2020-11-12 20:13:00 137 mm[Hg] [place] [facility] Diastolic blood pressure 2020-11-12 20:13:00 80 mm[Hg] [facility] Heart rate 2020-11-12 20:13:00 82 /min [facility] Body temperature 2020-11-12 20:13:00 37 Naina [facility] Respiratory rate 2020-11-12 20:13:00 18 /min [facility] Body height 2020-11-12 20:13:00 163.8 cm [facility] Body weight 2020-11-12 20:13:00 79.833 kg [facility] BMI 2020-11-12 20:13:00 29.74 kg/m2 [facility] BP Systolic 2024-12-15 13:38:00 119 mm[Hg] Step hen Kahlil Hernandez BP Diastolic 2024-12-15 13:38:00 80 mm[Hg] Vinnie phen F David Weight Measured 2024-12-15 13:38:00 200.60 pounds Allen F David Height Measured 2024-12-15 13:38:00 64.00 inches Allen F David Body Temperature 2024-12-15 13:38:00 97.70 degrees Allen F David Heart Rate 2024-12-15 13:38:00 77.00 /min Rachel en F David Respiratory Rate 2024-12-15 13:38:00 18.00 /min Allen F David BP Systolic 2024-05-11 16:28:00 Step hen F David BP Diastolic 2024-05-11 16:28:00 [place] phen F David Weight Measured 2024-05-11 16:28:00 Allen F David Height Measured 2024-05-11 16:28:00 Allen F David Body Temperature 2024-05-11 16:28:00 Allen F David Heart Rate 2024-05-11 16:28:00 Rachel en F David Respiratory Rate 2024-05-11 16:28:00 Allen F David BP Systolic 2024-04-11 08:38:00 131 mm[Hg] Step hen F David BP Diastolic 2024-04-11 08:38:00 84 mm[Hg] Vinnie phen F David Weight Measured 2024-04-11 08:38:00 212.60 pounds Allen F David Height Measured 2024-04-11 08:38:00 64.00 inches Allen F David Body Temperature 2024-04-11 08:38:00 97.10 degrees Allen F Advid Heart Rate 2024-04-11 08:38:00 74.00 /min Rachel en F David Respiratory Rate 2024-04-11 08:38:00 18.00 /min Allen F David BP Systolic 2023-09-15 10:10:00 130 mm[Hg] Step hen F David BP Diastolic 2023-09-15 10:10:00 79 mm[Hg] Vinnie phen F David Weight Measured 2023-09-15 10:10:00 200.20 pounds Allen F David Height Measured 2023-09-15 10:10:00 64.00 inches Allen F David Body Temperature 2023-09-15 10:10:00 97.70 degrees Allen F David Heart Rate 2023-09-15 10:10:00 86.00 /min Rachel en F David Respiratory Rate 2023-09-15 10:10:00 18.00 /min Allen F David BP Systolic 2023-09-02 08:31:00 113 mm[Hg] Step hen F David BP Diastolic 2023-09-02 08:31:00 75 mm[Hg] Vinnie phen F David Weight Measured 2023-09-02 08:31:00 200.00 pounds Allen F David Height Measured 2023-09-02 08:31:00 64.00 inches Allen F David Body Temperature 2023-09-02 08:31:00 98.40 degrees Allen F David Heart Rate 2023-09-02 08:31:00 64.00 /min Rachel en F David Respiratory Rate 2023-09-02 08:31:00 19.00 /min Allen F David BP Systolic 2022-04-08 11:45:00 136 mm[Hg] Step hen F David BP Diastolic 2022-04-08 11:45:00 82 mm[Hg] Vinnie phen F David Weight Measured 2022-04-08 11:45:00 199.00 pounds Allen F David Height Measured 2022-04-08 11:45:00 64.00 inches Allen F David Body Temperature 2022-04-08 11:45:00 98.10 degrees Allen F David Heart Rate 2022-04-08 11:45:00 87.00 /min Rachel en F David Respiratory Rate 2022-04-08 11:45:00 18.00 /min Allen F David BP Systolic 2022-02-16 09:09:00 124 mm[Hg] Step hen F David BP Diastolic 2022-02-16 09:09:00 84 mm[Hg] Vinnie phen F David Weight Measured 2022-02-16 09:09:00 197.80 pounds Allen F David Height Measured 2022-02-16 09:09:00 64.00 inches Allen F David Body Temperature 2022-02-16 09:09:00 98.10 degrees Allen F David Heart Rate 2022-02-16 09:09:00 65.00 /min Rachel en F David Respiratory Rate 2022-02-16 09:09:00 Allen F David BP Systolic 2021-06-09 14:42:00 106 mm[Hg] Step hen F David BP Diastolic 2021-06-09 14:42:00 74 mm[Hg] Vinnie phen F David Weight Measured 2021-06-09 14:42:00 181.00 pounds Allen F David Height Measured 2021-06-09 14:42:00 64.00 inches Allen F David Body Temperature 2021-06-09 14:42:00 98.10 degrees Allen F David Heart Rate 2021-06-09 14:42:00 74.00 /min Rachel en F David Respiratory Rate 2021-06-09 14:42:00 21.00 /min Allen F David BP Systolic 2020-08-30 15:05:00 132 mm[Hg] Step hen F David BP Diastolic 2020-08-30 15:05:00 89 mm[Hg] Vinnie phen F David Weight Measured 2020-08-30 15:05:00 180.80 pounds Allen F David Height Measured 2020-08-30 15:05:00 64.00 inches Allen F David Body Temperature 2020-08-30 15:05:00 97.00 degrees Allen F David Heart Rate 2020-08-30 15:05:00 71.00 /min Rachel en F David Respiratory Rate 2020-08-30 15:05:00 16.00 /min Allen F David BP Systolic 2020-01-12 14:21:00 128 mm[Hg] Step hen F David BP Diastolic 2020-01-12 14:21:00 81 mm[Hg] Vinnie phen F David Weight Measured 2020-01-12 14:21:00 167.80 pounds Allen F David Height Measured 2020-01-12 14:21:00 64.00 inches Allen F David Body Temperature 2020-01-12 14:21:00 98.70 degrees Allen F David Heart Rate 2020-01-12 14:21:00 71.00 /min Rachel en F David Respiratory Rate 2020-01-12 14:21:00 Allen F David BP Systolic 2019-11-17 15:03:00 129 mm[Hg] Step hen F David BP Diastolic 2019-11-17 15:03:00 74 mm[Hg] Vinnie phen F David Weight Measured 2019-11-17 15:03:00 165.80 pounds Allen F David Height Measured 2019-11-17 15:03:00 64.00 inches Allen Hernandez Body Temperature 2019-11-17 15:03:00 98.90 degrees Allen Hernandez Heart Rate 2019-11-17 15:03:00 81.00 /min Rachel en Kahlil Hernandez Respiratory Rate 2019-11-17 15:03:00 Allen Hernandez BP Systolic 2017-12-14 14:18:00 123 mm[Hg] Step hen F David BP Diastolic 2017-12-14 14:18:00 72 mm[Hg] Vinnie phen F David Weight Measured 2017-12-14 14:18:00 193.20 pounds Allen Hernandez Height Measured 2017-12-14 14:18:00 64.00 inches Allen Hernandez Body Temperature 2017-12-14 14:18:00 98.90 degrees Allen Hernandez Heart Rate 2017-12-14 14:18:00 94.00 /min Rachel en Kahlil Hernandez Respiratory Rate 2017-12-14 14:18:00 16.00 /min Allen Hernandez Procedures Procedure Date / Time Performed Performing Clinicia n Source SARS-COV-2 COVID-19 VACCINE,0.3ML,IM (PFIZER) 2021-07-17 19:34:04 Doctor Unassigned, [place] [facility] FLU VACC (2601-9021), 6+ MONTHS, IM, QUAD 2020-11-12 20:51:59 Gianna Zambrano [facility] NOTICE OF BILLING PRACTICES FOR MEDICARE PATIENTS 2020-11-12 06:01:00 Doctor Unassigned, [place] [facility] POCT TEST 2020-11-12 00:00:00 Gianna Zambrano [facility] POCT URINALYSIS W/O SPECIFIC GRAVITY 2020-11-12 00:00:00 Gianna Zambrano [facility] Encounters Start Date/Time End Date/Time Encounter Type Admission Type Attending Clinicians Care Facility Care Department Encounter ID Source 2021-09-21 20:35:56 Outpatient P [facility] [id number] [facility] 2025-01-02 10:49:28 2025-01-02 10:49:28 Outpatient [facility] [id number] Allen Guillory David 2024-12-18 14:23:37 2024-12-18 14:23:37 Outpatient [facility] S[facility] [id number] Allen Hernandez 2024-12-15 13:29:41 2024-12-15 13:29:41 Outpatient [facility] S[facility] [id number] Allen Hernandez 2024-12-15 00:00:00 2024-12-15 00:00:00 Outpatient Visit [facility] [id number] Allen Hernandez 2024-09-04 16:43:36 2024-09-04 16:43:36 Outpatient [facility] S[facility] [id number] Allen Hernandez 2024-07-27 13:08:00 2024-07-27 13:08:00 Outpatient [facility] S[facility] [id number] Allen Hernandez 2024-07-26 08:40:48 2024-07-26 08:40:48 Outpatient S[facility] SFA [id number] Allen Hernandez 2024-05-11 16:29:11 2024-05-11 16:29:11 Outpatient SFA SFA [id number] Allen Guillory David 2024-05-11 00:00:00 2024-05-11 00:00:00 Outpatient Visit S[facility] [id number] Allen Hernandez 2024-04-27 08:50:48 2024-04-27 08:50:48 Outpatient SFA SFA [id number] Allen Hernandez 2024-04-27 00:00:00 2024-04-27 00:00:00 Outpatient Visit SFA [id number] Allen Hernandez 2024-04-21 13:58:57 2024-04-21 13:58:57 Outpatient SFA SFA [id number] Allen Hernandez 2024-04-11 10:42:00 2024-04-11 10:42:00 Outpatient SFA SFA [id number] Allen Hernandez 2024-04-11 00:00:00 2024-04-11 00:00:00 Outpatient Visit SFA [id number] Allen Guillory David 2024-03-29 13:22:27 2024-03-29 13:22:27 Outpatient SFA SFA [id number] Allen Guillory [place] 2024-03-16 15:38:08 2024-03-16 15:38:08 Outpatient SFA SFA [id number] Allen Guillory [place] 2024-03-01 15:21:47 2024-03-01 15:21:47 Outpatient SFA SFA [id number] Allen Guillory [place] 2024-02-14 14:06:58 2024-02-14 14:06:58 Outpatient SFA SFA [id number] Allen Guillory [place] 2024-01-24 15:07:05 2024-01-24 15:07:05 Outpatient SFA SFA [id number] Allen Guillory [place] 2023-12-27 15:36:58 2023-12-27 15:36:58 Outpatient SFA SFA [id number] Allen Guillory [place] 2023-12-13 14:14:53 2023-12-13 14:14:53 Outpatient SFA SFA [id number] Allen Guillory [place] 2023-09-18 00:00:00 2023-09-18 00:00:00 Outpatient [id number] [facility] [id number] [facility] 2023-09-02 08:27:12 2023-09-02 08:27:12 Outpatient SFA SFA [id number] Allen Guillory [place] 2023-07-07 17:54:17 2023-07-07 17:54:17 Outpatient SFA SFA [id number] Allen Guillory [place] 2021-08-07 13:10:00 2021-08-07 13:10:00 Outpatient DAVID NINO [facility] [id number] [facility] 2021-07-17 15:10:00 2021-07-17 15:10:00 Outpatient DAVID NINO [facility] [id number] [facility] 2021-07-17 14:22:04 2021-07-17 14:22:11 Imm/Inj Visit Nurse, [facility] [id number] [facility] 2021-04-14 07:45:00 2021-04-14 07:45:00 Outpatient [facility] [id number] [facility] 2021-04-10 13:30:00 2021-04-10 13:30:00 Outpatient [facility] [id number] [facility] 2021-04-04 13:45:00 2021-04-04 13:45:00 Outpatient [facility] [id number] [facility] 2021-03-28 13:45:00 2021-03-28 13:45:00 Outpatient [facility] [facility] [id number] [facility] 2021-03-25 14:40:00 2021-03-25 14:40:00 Outpatient R [facility] [id number] [facility] 2021-03-21 10:45:00 2021-03-21 10:45:00 [facility] [id number] [facility] 2021-03-07 13:45:00 2021-03-07 13:45:00 Out[facility] [id number] [facility] 2021-02-21 10:00:00 2021-02-21 10:00:00 [facility] [id number] [facility] 2021-01-15 14:00:00 2021-01-15 14:00:00 Out[facility] [id number] [facility] 2021-01-03 13:00:00 2021-01-03 13:00:00 Outpatient P [facility] [id number] [facility] 2020-12-18 14:30:00 2020-12-18 14:30:00 Outpatient R GIANNA ZAMBRANO [facility] [id number] [facility] 2020-12-13 10:00:00 2020-12-13 10:00:00 Outpatient P [facility] [id number] [facility] 2020-12-10 11:30:00 2020-12-10 11:30:00 Outpatient R ADGIANNA SCHMITT [facility] [id number] [facility] 2020-11-29 00:00:00 2020-11-29 00:00:00 Telephone Adum, [facility] [place] [facility] [id number] [facility] 2020-11-13 11:31:50 2020-11-13 11:46:50 [place]ingle Cutter Visit 2, Adc Lab AdGianna sch[facility] [id number] [facility] 2020-11-13 11:30:00 2020-11-13 11:30:00 Outpatient R [facility] [id number] [facility] 2020-11-12 14:03:08 2020-11-12 15:11:24 Initial Visit Adraza [facility]na [facility] [id number] [facility] 2020-11-12 13:30:00 2020-11-12 13:30:00 Outpatient R ADGIANNA SCHMITT [facility] [id number] [facility] 2020-11-12 00:00:00 2020-11-12 00:00:00 Orders Only Doctor Unassigned, [place] [facility] [id number] [id number] [facility] 2020-10-15 14:30:00 2020-10-15 14:30:00 [facility] [id number] [facility] 2020-09-10 13:30:00 2020-09-10 13:30:00 [facility] [id number] [facility] 2020-09-05 13:30:00 2020-09-05 13:30:00 Out[facility] [id number] [facility] Results Test Description Test Time Test Comments Results Result Co mments Source TSH, THIRD [id number] 08:12:01* Test Item Value Reference Range Interpretation Comme [facility] TSH, THIRD GENERATION (test code = 2821) 1.840 UIU/ML 0.400-4.100 [id number] 06:31:23* Test Item Value Reference Range Interpretation Comme [facility] NT-proBNP (test code = 35300) 114 PG/ML SEE BELOW If NT-ProBNP is less than 300 PG/ML, heart failure is unlikely for allages. Age.................Heart Failure Likely <50 Years...........>=450 PG/ML 50-75 Years.........>=900 PG/ML > 75 Years..........>=1800 PG/ML Methodology: Kolby Sirena Electrochemiluminescense Immunoassay UNLESS OTHERWISE INDICATED, ALL TESTING PERFORMED AT [facility] [address] [place] [id number] EMPLOYEE RELATION MANAGER: LAURENT SANDRA M.D. CLIA NUMBER [id number] [place]. [id number] COMPREHENSIVE METABOLIC [id number] 05:38:02* Test Item Value Reference Range Interpretation Comme [facility] GLUCOSE (test code = 2216) 99 MG/DL 70-99 BUN (test code = 2207) 7 MG/DL 6-20 CREATININE (test code = 2213) 0.67 MG/DL 0.60-1.30 eGFR (2020 CKD-EPI) (test code = ) 121 ML/MIN/1.73 >60 CALC BUN/CREAT (test code = 2234) 10 RATIO 6-28 SODIUM (test code = 2230) 138 MEQ/L 133-146 POTASSIUM (test code = 2227) 4.5 MEQ/L 3.5-5.4 CHLORIDE (test code = 2214) 102 MEQ/L 95-107 CARBON DIOXIDE (test code = 2205) 24 MEQ/L 19-31 CALCIUM (test code = 2208) 9.8 MG/DL 8.5-10.5 PROTEIN, TOTAL (test code = 2228) 6.9 G/DL 6.1-8.3 ALBUMIN (test code = 2200) 4.3 G/DL 3.5-5.2 CALC GLOBULIN (test code = 2239) 2.6 G/DL 1.9-3.7 CALC A/G RATIO (test code = 2233) 1.7 RATIO 1.0-2.6 BILIRUBIN, TOTAL (test code = 2206) 0.3 MG/DL <=1.2 ALKALINE PHOSPHATASE (test code = 2203) 127 U/L 40-112 H AST (test code = 2217) 32 U/L 9-40 ALT (test code = 2218) 34 U/L 5-40 CBC W/AUTO DIFF WITH [id number] 02:27:39* Test Item Value Reference Range Interpretation Comme nts WBC (test code = 1001) 7.5 K/UL 3.5-11.0 RBC (test code = 1002) 4.30 M/UL 3.80-5.40 HEMOGLOBIN (test code = 1003) 11.5 G/DL 11.5-15.5 HEMATOCRIT (test code = 1004) 36.5 % 34.0-45.0 MCV (test code = 1005) 84.9 fL 80.0-99.0 MCH (test code = 1006) 26.7 PG 25.0-33.0 MCHC (test code = 1007) 31.5 G/DL 31.0-36.0 RDW (test code = 1038) 13.1 % 11.5-15.0 NEUTROPHILS (test code = 1008) 62.5 % LYMPHOCYTES (test code = 1010) 28.1 % MONOCYTES (test code = 1011) 4.8 % EOSINOPHILS (test code = 1012) 3.7 % BASOPHILS (test code = 1013) 0.8 % IMMATURE GRANULOCYTES (test code = 1036) 0.1 % NUCLEATED RBCS (test code = 1065) 0.0 /100 WBC'S See_Comment [Automated messa ge] The system which generated this result transmitted reference range: 0.0. The reference range was not used to interpret this result as normal/abnormal. PLATELET COUNT (test code = 1015) 330 K/UL 130-400 ABSOLUTE NEUTROPHILS (test code = 1066) 4.71 K/UL 1.50-7.50 ABSOLUTE LYMPHOCYTES (test code = 1067) 2.12 K/UL 1.00-4.00 ABSOLUTE MONOCYTES (test code = 1068) 0.36 K/UL 0.20-1.00 ABSOLUTE EOSINOPHILS (test code = 1040) 0.28 K/UL 0.00-0.50 ABSOLUTE BASOPHILS (test code = 1069) 0.06 K/UL 0.00-0.20 ABS IMMATURE GRANULOCYTES (test code = 1020) 0.01 K/UL 0.00-0.10 ABS NUCLEATED RBCS (test code = 59398) 0.00 K/UL 0.00-0.11 [id number] 00:00:00* Test Item Value Reference Range Interpretation Comme nts NT-proBNP (test code = 38572) 114 PG/ML Allen HernandezCOMPREHENSIVE METABOLIC [id number] 00:00:00* Test Item Value Reference Range Interpretation Comme nts GLUCOSE (test code = 2217) 99 MG/DL BUN (test code = 2208) 7 MG/DL CREATININE (test code = 2214) 0.67 MG/DL eGFR (2020 CKD-EPI) (test code = 96328) 121 ML/MIN/1.73 CALC BUN/CREAT (test code = 2235) 10 RATIO SODIUM (test code = 2231) 138 MEQ/L POTASSIUM (test code = 2228) 4.5 MEQ/L CHLORIDE (test code = 2215) 102 MEQ/L CARBON DIOXIDE (test code = 2206) 24 MEQ/L CALCIUM (test code = 2209) 9.8 MG/DL PROTEIN, TOTAL (test code = 2229) 6.9 G/DL ALBUMIN (test code = 2201) 4.3 G/DL CALC GLOBULIN (test code = 2240) 2.6 G/DL CALC A/G RATIO (test code = 2234) 1.7 RATIO BILIRUBIN, TOTAL (test code = 2207) 0.3 MG/DL ALKALINE PHOSPHATASE (test code = 2204) 127 U/L AST (test code = 2218) 32 U/L ALT (test code = 2219) 34 U/L Allen HernandezTSH, THIRD [id number] 00:00:00* Test Item Value Reference Range Interpretation Comme nts TSH, THIRD GENERATION (test code = 2821) 1.840 UIU/ML Allen HernandezCBC W/AUTO [id number] 00:00:00* Test Item Value Reference Range Interpretation Comme nts WBC (test code = 1001) 7.5 K/UL RBC (test code = 1002) 4.30 M/UL HEMOGLOBIN (test code = 1003) 11.5 G/DL HEMATOCRIT (test code = 1004) 36.5 % MCV (test code = 1005) 84.9 fL MCH (test code = 1006) 26.7 PG MCHC (test code = 1007) 31.5 G/DL RDW (test code = 1038) 13.1 % NEUTROPHILS (test code = 1008) 62.5 % LYMPHOCYTES (test code = 1010) 28.1 % MONOCYTES (test code = 1011) 4.8 % EOSINOPHILS (test code = 1012) 3.7 % BASOPHILS (test code = 1013) 0.8 % IMMATURE GRANULOCYTES (test code = 1036) 0.1 % NUCLEATED RBCS (test code = 1065) 0.0 /100WBC'S PLATELET COUNT (test code = 1015) 330 K/UL ABSOLUTE NEUTROPHILS (test c ode = 1066) 4.71 K/UL ABSOLUTE LYMPHOCYTES (test c ode = 1067) 2.12 K/UL ABSOLUTE MONOCYTES (test cod e = 1068) 0.36 K/UL ABSOLUTE EOSINOPHILS (test c ode = 1040) 0.28 K/UL ABSOLUTE BASOPHILS (test cod e = 1069) 0.06 K/UL ABS IMMATURE GRANULOCYTES (t est code = 1020) 0.01 K/UL ABS NUCLEATED RBCS (test cod e = 06818) 0.00 K/UL Allen HernandezCyackvK-[id number] 00:00:00* Test Item Value Reference Range Interpretation Comme nts D-DIMER (test code = 1405) <0.27 UG/MLFEU Allen HernandezBlnwogWQ-[id number] 00:00:00* Test Item Value Reference Range Interpretation Comme nts NT-proBNP (test code = 61686) 114 PG/ML Allen HernandezCOMPREHENSIVE METABOLIC [id number] 00:00:00* Test Item Value Reference Range Interpretation Comme nts GLUCOSE (test code = 2217) 99 MG/DL BUN (test code = 2208) 7 MG/DL CREATININE (test code = 2214) 0.67 MG/DL eGFR (2020 CKD-EPI) (test code = 32442) 121 ML/MIN/1.73 CALC BUN/CREAT (test code = 2235) 10 RATIO SODIUM (test code = 2231) 138 MEQ/L POTASSIUM (test code = 2228) 4.5 MEQ/L CHLORIDE (test code = 2215) 102 MEQ/L CARBON DIOXIDE (test code = 2206) 24 MEQ/L CALCIUM (test code = 2209) 9.8 MG/DL PROTEIN, TOTAL (test code = 2229) 6.9 G/DL ALBUMIN (test code = 2201) 4.3 G/DL CALC GLOBULIN (test code = 2240) 2.6 G/DL CALC A/G RATIO (test code = 2234) 1.7 RATIO BILIRUBIN, TOTAL (test code = 2207) 0.3 MG/DL ALKALINE PHOSPHATASE (test code = 2204) 127 U/L AST (test code = 2218) 32 U/L ALT (test code = 2219) 34 U/L Allen HernandezTSH, THIRD [id number] 00:00:00* Test Item Value Reference Range Interpretation Comme nts TSH, THIRD GENERATION (test code = 2821) 1.840 UIU/ML Allen HernandezCBC W/AUTO [id number] 00:00:00* Test Item Value Reference Range Interpretation Comme nts WBC (test code = 1001) 7.5 K/UL RBC (test code = 1002) 4.30 M/UL HEMOGLOBIN (test code = 1003) 11.5 G/DL HEMATOCRIT (test code = 1004) 36.5 % MCV (test code = 1005) 84.9 fL MCH (test code = 1006) 26.7 PG MCHC (test code = 1007) 31.5 G/DL RDW (test code = 1038) 13.1 % NEUTROPHILS (test code = 1008) 62.5 % LYMPHOCYTES (test code = 1010) 28.1 % MONOCYTES (test code = 1011) 4.8 % EOSINOPHILS (test code = 1012) 3.7 % BASOPHILS (test code = 1013) 0.8 % IMMATURE GRANULOCYTES (test code = 1036) 0.1 % NUCLEATED RBCS (test code = 1065) 0.0 /100WBC'S PLATELET COUNT (test code = 1015) 330 K/UL ABSOLUTE NEUTROPHILS (test c ode = 1066) 4.71 K/UL ABSOLUTE LYMPHOCYTES (test c ode = 1067) 2.12 K/UL ABSOLUTE MONOCYTES (test cod e = 1068) 0.36 K/UL ABSOLUTE EOSINOPHILS (test c ode = 1040) 0.28 K/UL ABSOLUTE BASOPHILS (test cod e = 1069) 0.06 K/UL ABS IMMATURE GRANULOCYTES (t est code = 1020) 0.01 K/UL ABS NUCLEATED RBCS (test cod e = 41994) 0.00 K/UL Allen HernandezXinorjK-[id number] 00:00:00* Test Item Value Reference Range Interpretation Comme nts D-DIMER (test code = 1405) <0.27 UG/MLFEU Allen Guillory [id number]-[id number] 00:00:00* Test Item Value Reference Range Interpretation Comme nts NT-proBNP (test code = 50586) 114 PG/ML Allen Guillory DavidCOMPREHENSIVE METABOLIC [id number] 00:00:00* Test Item Value Reference Range Interpretation Comme nts GLUCOSE (test code = 2217) 99 MG/DL BUN (test code = 2208) 7 MG/DL CREATININE (test code = 2214) 0.67 MG/DL eGFR (2020 CKD-EPI) (test code = 88659) 121 ML/MIN/1.73 CALC BUN/CREAT (test code = 2235) 10 RATIO SODIUM (test code = 2231) 138 MEQ/L POTASSIUM (test code = 2228) 4.5 MEQ/L CHLORIDE (test code = 2215) 102 MEQ/L CARBON DIOXIDE (test code = 2206) 24 MEQ/L CALCIUM (test code = 2209) 9.8 MG/DL PROTEIN, TOTAL (test code = 2229) 6.9 G/DL ALBUMIN (test code = 2201) 4.3 G/DL CALC GLOBULIN (test code = 2240) 2.6 G/DL CALC A/G RATIO (test code = 2234) 1.7 RATIO BILIRUBIN, TOTAL (test code = 2207) 0.3 MG/DL ALKALINE PHOSPHATASE (test code = 2204) 127 U/L AST (test code = 2218) 32 U/L ALT (test code = 2219) 34 U/L Allen HernandezBALTAZAR, THIRD [id number] 00:00:00* Test Item Value Reference Range Interpretation Comme nts TSH, THIRD GENERATION (test code = 2821) 1.840 UIU/ML Allen HernandezCBC W/AUTO [id number] 00:00:00* Test Item Value Reference Range Interpretation Comme nts WBC (test code = 1001) 7.5 K/UL RBC (test code = 1002) 4.30 M/UL HEMOGLOBIN (test code = 1003) 11.5 G/DL HEMATOCRIT (test code = 1004) 36.5 % MCV (test code = 1005) 84.9 fL MCH (test code = 1006) 26.7 PG MCHC (test code = 1007) 31.5 G/DL RDW (test code = 1038) 13.1 % NEUTROPHILS (test code = 1008) 62.5 % LYMPHOCYTES (test code = 1010) 28.1 % MONOCYTES (test code = 1011) 4.8 % EOSINOPHILS (test code = 1012) 3.7 % BASOPHILS (test code = 1013) 0.8 % IMMATURE GRANULOCYTES (test code = 1036) 0.1 % NUCLEATED RBCS (test code = 1065) 0.0 /100WBC'S PLATELET COUNT (test code = 1015) 330 K/UL ABSOLUTE NEUTROPHILS (test c ode = 1066) 4.71 K/UL ABSOLUTE LYMPHOCYTES (test c ode = 1067) 2.12 K/UL ABSOLUTE MONOCYTES (test cod e = 1068) 0.36 K/UL ABSOLUTE EOSINOPHILS (test c ode = 1040) 0.28 K/UL ABSOLUTE BASOPHILS (test cod e = 1069) 0.06 K/UL ABS IMMATURE GRANULOCYTES (t est code = 1020) 0.01 K/UL ABS NUCLEATED RBCS (test cod e = 27206) 0.00 K/UL Allen Guillory [id number] 00:00:00* Test Item Value Reference Range Interpretation Comme nts D-DIMER (test code = 1405) <0.27 UG/MLFEU Allen Guillory AustinPOCT URINALYSIS W/O SPECIFIC [id number] 20:17:00* Test Item Value Reference Range Interpretation Comme nts POCT PH U (test code = 3254) N/A 5-8 POCT U LEUK EST (test code = 3263) N/A Negative - Negative POCT U NIT (test code = 3262) N/A Negative - Negati ve POCT U PROT (test code = 3259) Negative Negative - Negat mynor POCT U GLU (test code = 3256) Negative Negative - Negati ve POCT U KETONE (test code = 3258) N/A Negative - Neg ative POCT U BLD (test code = 3257) N/A Negative - Negati ve [facility] [id number] 20:16:00* Test Item Value Reference Range Interpretation Comme nts POCT PREG (test code = 1605) Positive On board controls acceptable with C Line (test code = 3574) Yes POCT PREG LOT # (test code = 3575) POCT PREG TEST DATE ( test code = 3576) [facility]O [id number] 00:00:00* Test Item Value Reference Range Interpretation Comme nts WBC (test code = 1001) 9.9 K/UL RBC (test code = 1002) 3.84 M/UL HEMOGLOBIN (test code = 1003) 11.2 G/DL HEMATOCRIT (test code = 1004) 33.4 % MCV (test code = 1005) 87.0 fL MCH (test code = 1006) 29.2 PG MCHC (test code = 1007) 33.5 G/DL RDW (test code = 1038) 12.9 % NEUTROPHILS (test code = 1008) 75.8 % LYMPHOCYTES (test code = 1010) 17.4 % MONOCYTES (test code = 1011) 4.4 % EOSINOPHILS (test code = 1012) 2.2 % BASOPHILS (test code = 1013) 0.2 % PLATELET COUNT (test code = 1015) 285 K/UL Allen Guillory AustinGLUCOSE, 1 HR, GESTATIONAL SCREEN, 50 GM [id number] 00:00:00 * Test Item Value Reference Range Interpretation Comme nts GLUCOSE 1 HR POST 50 GM (georges t code = 2005) 96 MG/DL Allen Kahlil AustinCBC W/AUTO [id number] 00:00:00* Test Item Value Reference Range Interpretation Comme nts WBC (test code = 1001) 9.9 K/UL RBC (test code = 1002) 3.84 M/UL HEMOGLOBIN (test code = 1003) 11.2 G/DL HEMATOCRIT (test code = 1004) 33.4 % MCV (test code = 1005) 87.0 fL MCH (test code = 1006) 29.2 PG MCHC (test code = 1007) 33.5 G/DL RDW (test code = 1038) 12.9 % NEUTROPHILS (test code = 1008) 75.8 % LYMPHOCYTES (test code = 1010) 17.4 % MONOCYTES (test code = 1011) 4.4 % EOSINOPHILS (test code = 1012) 2.2 % BASOPHILS (test code = 1013) 0.2 % PLATELET COUNT (test code = 1015) 285 K/UL Allen Guillory AustinGLUCOSE, 1 HR, GESTATIONAL SCREEN, 50 GM [id number] 00:00:00 * Test Item Value Reference Range Interpretation Comme nts GLUCOSE 1 HR POST 50 GM (georges t code = 2005) 96 MG/DL Allen F AustinCBC W/AUTO [id number] 00:00:00* Test Item Value Reference Range Interpretation Comme nts WBC (test code = 1001) 9.9 K/UL RBC (test code = 1002) 3.84 M/UL HEMOGLOBIN (test code = 1003) 11.2 G/DL HEMATOCRIT (test code = 1004) 33.4 % MCV (test code = 1005) 87.0 fL MCH (test code = 1006) 29.2 PG MCHC (test code = 1007) 33.5 G/DL RDW (test code = 1038) 12.9 % NEUTROPHILS (test code = 1008) 75.8 % LYMPHOCYTES (test code = 1010) 17.4 % MONOCYTES (test code = 1011) 4.4 % EOSINOPHILS (test code = 1012) 2.2 % BASOPHILS (test code = 1013) 0.2 % PLATELET COUNT (test code = 1015) 285 K/UL Allen HernandezGLUCOSE, 1 HR, GESTATIONAL SCREEN, 50 GM [id number] 00:00:00 * Test Item Value Reference Range Interpretation Comme nts GLUCOSE 1 HR POST 50 GM (georges t code = 2005) 96 MG/DL Allen HernandezCBC W/AUTO [id number] 00:00:00* Test Item Value Reference Range Interpretation Comme nts WBC (test code = 1001) 9.9 K/UL RBC (test code = 1002) 3.84 M/UL HEMOGLOBIN (test code = 1003) 11.2 G/DL HEMATOCRIT (test code = 1004) 33.4 % MCV (test code = 1005) 87.0 fL MCH (test code = 1006) 29.2 PG MCHC (test code = 1007) 33.5 G/DL RDW (test code = 1038) 12.9 % NEUTROPHILS (test code = 1008) 75.8 % LYMPHOCYTES (test code = 1010) 17.4 % MONOCYTES (test code = 1011) 4.4 % EOSINOPHILS (test code = 1012) 2.2 % BASOPHILS (test code = 1013) 0.2 % PLATELET COUNT (test code = 1015) 285 K/UL Allen HernandezGLUCOSE, 1 HR, GESTATIONAL SCREEN, 50 GM [id number] 00:00:00 * Test Item Value Reference Range Interpretation Comme nts GLUCOSE 1 HR POST 50 GM (georges t code = 2005) 96 MG/DL Allen ButlerLTURE, [id number] 00:00:00* Test Item Value Reference Range Interpretation Comme nts CULTURE, URINE (test code = 73031) SPECIMEN NUMBER: [id number] Allen Guillory DavidCULTURE, [id number] 00:00:00* Test Item Value Reference Range Interpretation Comme nts CULTURE, URINE (test code = 00327) SPECIMEN NUMBER: [id number] Allen Kmi, [id number] 00:00:00* Test Item Value Reference Range Interpretation Comme nts CULTURE, URINE (test code = 07963) SPECIMEN NUMBER: [id number] Allen Kim, [id number] 00:00:00* Test Item Value Reference Range Interpretation Comme nts CULTURE, URINE (test code = 40892) SPECIMEN NUMBER: [id number] Allen Guillory AustinDRUG ABUSE PANEL 10 WITH [id number] 00:00:00* Test Item Value Reference Range Interpretation Comme nts AMPHETAMINES (test code = 3201) NEGATIVE BARBITURATES (test code = 3202) NEGATIVE BENZODIAZEPINES (test code = 3203) NEGATIVE CANNABINOIDS (test code = 3204) NEGATIVE COCAINE METABOLITE (test cod e = 3205) NEGATIVE METHADONE (test code = 3207) NEGATIVE METHAQUALONE (test code = 3208) NEGATIVE OPIATES (test code = 3209) NEGATIVE PHENCYCLIDINE (test code = 3210) NEGATIVE PROPOXYPHENE (test code = 3211) NEGATIVE SPECIMEN, DRUG SCREEN (test code = 3217) URINE OXYCODONE, URINE (test code = 01419) NEGATIVE Allen Guillory AustinDRUG ABUSE PANEL 10 WITH [id number] 00:00:00* Test Item Value Reference Range Interpretation Comme nts AMPHETAMINES (test code = 3201) NEGATIVE BARBITURATES (test code = 3202) NEGATIVE BENZODIAZEPINES (test code = 3203) NEGATIVE CANNABINOIDS (test code = 3204) NEGATIVE COCAINE METABOLITE (test cod e = 3205) NEGATIVE METHADONE (test code = 3207) NEGATIVE METHAQUALONE (test code = 3208) NEGATIVE OPIATES (test code = 3209) NEGATIVE PHENCYCLIDINE (test code = 3210) NEGATIVE PROPOXYPHENE (test code = 3211) NEGATIVE SPECIMEN, DRUG SCREEN (test code = 3217) URINE OXYCODONE, URINE (test code = 02253) NEGATIVE Allen Guillory AustinDRUG ABUSE PANEL 10 WITH [id number] 00:00:00* Test Item Value Reference Range Interpretation Comme nts AMPHETAMINES (test code = 3201) NEGATIVE BARBITURATES (test code = 3202) NEGATIVE BENZODIAZEPINES (test code = 3203) NEGATIVE CANNABINOIDS (test code = 3204) NEGATIVE COCAINE METABOLITE (test cod e = 3205) NEGATIVE METHADONE (test code = 3207) NEGATIVE METHAQUALONE (test code = 3208) NEGATIVE OPIATES (test code = 3209) NEGATIVE PHENCYCLIDINE (test code = 3210) NEGATIVE PROPOXYPHENE (test code = 3211) NEGATIVE SPECIMEN, DRUG SCREEN (test code = 3217) URINE OXYCODONE, URINE (test code = 73287) NEGATIVE Allen F AustinDRUG ABUSE PANEL 10 WITH [id number] 00:00:00* Test Item Value Reference Range Interpretation Comme nts AMPHETAMINES (test code = 3201) NEGATIVE BARBITURATES (test code = 3202) NEGATIVE BENZODIAZEPINES (test code = 3203) NEGATIVE CANNABINOIDS (test code = 3204) NEGATIVE COCAINE METABOLITE (test cod e = 3205) NEGATIVE METHADONE (test code = 3207) NEGATIVE METHAQUALONE (test code = 3208) NEGATIVE OPIATES (test code = 3209) NEGATIVE PHENCYCLIDINE (test code = 3210) NEGATIVE PROPOXYPHENE (test code = 3211) NEGATIVE SPECIMEN, DRUG SCREEN (test code = 3217) URINE OXYCODONE, URINE (test code = 21090) NEGATIVE Allen F AustinDRUG ABUSE PANEL 10 WITH [id number] 00:00:00* Test Item Value Reference Range Interpretation Comme nts AMPHETAMINES (test code = 3201) NEGATIVE BARBITURATES (test code = 3202) NEGATIVE BENZODIAZEPINES (test code = 3203) NEGATIVE CANNABINOIDS (test code = 3204) POSITIVE COCAINE METABOLITE (test cod e = 3205) NEGATIVE METHADONE (test code = 3207) NEGATIVE METHAQUALONE (test code = 3208) NEGATIVE OPIATES (test code = 3209) NEGATIVE PHENCYCLIDINE (test code = 3210) NEGATIVE PROPOXYPHENE (test code = 3211) NEGATIVE SPECIMEN, DRUG SCREEN (test code = 3217) URINE OXYCODONE, URINE (test code = 16389) NEGATIVE Allen F AustinDRUG ABUSE PANEL 10 WITH [id number] 00:00:00* Test Item Value Reference Range Interpretation Comme nts AMPHETAMINES (test code = 3201) NEGATIVE BARBITURATES (test code = 3202) NEGATIVE BENZODIAZEPINES (test code = 3203) NEGATIVE CANNABINOIDS (test code = 3204) POSITIVE COCAINE METABOLITE (test cod e = 3205) NEGATIVE METHADONE (test code = 3207) NEGATIVE METHAQUALONE (test code = 3208) NEGATIVE OPIATES (test code = 3209) NEGATIVE PHENCYCLIDINE (test code = 3210) NEGATIVE PROPOXYPHENE (test code = 3211) NEGATIVE SPECIMEN, DRUG SCREEN (test code = 3217) URINE OXYCODONE, URINE (test code = 01998) NEGATIVE Allen F AustinDRUG ABUSE PANEL 10 WITH [id number] 00:00:00* Test Item Value Reference Range Interpretation Comme nts AMPHETAMINES (test code = 3201) NEGATIVE BARBITURATES (test code = 3202) NEGATIVE BENZODIAZEPINES (test code = 3203) NEGATIVE CANNABINOIDS (test code = 3204) POSITIVE COCAINE METABOLITE (test cod e = 3205) NEGATIVE METHADONE (test code = 3207) NEGATIVE METHAQUALONE (test code = 3208) NEGATIVE OPIATES (test code = 3209) NEGATIVE PHENCYCLIDINE (test code = 3210) NEGATIVE PROPOXYPHENE (test code = 3211) NEGATIVE SPECIMEN, DRUG SCREEN (test code = 3217) URINE OXYCODONE, URINE (test code = 33649) NEGATIVE Allen F AustinDRUG ABUSE PANEL 10 WITH [id number] 00:00:00* Test Item Value Reference Range Interpretation Comme nts AMPHETAMINES (test code = 3201) NEGATIVE BARBITURATES (test code = 3202) NEGATIVE BENZODIAZEPINES (test code = 3203) NEGATIVE CANNABINOIDS (test code = 3204) POSITIVE COCAINE METABOLITE (test cod e = 3205) NEGATIVE METHADONE (test code = 3207) NEGATIVE METHAQUALONE (test code = 3208) NEGATIVE OPIATES (test code = 3209) NEGATIVE PHENCYCLIDINE (test code = 3210) NEGATIVE PROPOXYPHENE (test code = 3211) NEGATIVE SPECIMEN, DRUG SCREEN (test code = 3217) URINE OXYCODONE, URINE (test code = 31105) NEGATIVE Allen F AustinCULTURE, [id number] 00:00:00* Test Item Value Reference Range Interpretation Comme nts CULTURE, URINE (test code = 30036) SPECIMEN NUMBER: [id number] Allen ButlerLTALBERTA, [id number] 00:00:00* Test Item Value Reference Range Interpretation Comme nts CULTURE, URINE (test code = 75194) SPECIMEN NUMBER: [id number] Allen ButlerLTALBERTA, [id number] 00:00:00* Test Item Value Reference Range Interpretation Comme nts CULTURE, URINE (test code = 24663) SPECIMEN NUMBER: [id number] Allen ButlerLTALBERTA, [id number] 00:00:00* Test Item Value Reference Range Interpretation Comme nts CULTURE, URINE (test code = 79262) SPECIMEN NUMBER: [id number] Allen HernandezHEPATITIS C [id number] 00:00:00* Test Item Value Reference Range Interpretation Comme nts HEPATITIS C ANTIBODY (test c ode = 4675) NON-REACTIVE Allen HernandezOBSTETRIC PANEL + [id number] 00:00:00* Test Item Value Reference Range Interpretation Comme nts WBC (test code = 1001) 9.8 K/UL RBC (test code = 1002) 4.39 M/UL HEMOGLOBIN (test code = 1003) 12.6 G/DL HEMATOCRIT (test code = 1004) 38.3 % MCV (test code = 1005) 87.2 fL MCH (test code = 1006) 28.7 PG MCHC (test code = 1007) 32.9 G/DL RDW (test code = 1038) 12.9 % NEUTROPHILS (test code = 1008) 75 % LYMPHOCYTES (test code = 1010) 19 % MONOCYTES (test code = 1011) 5 % EOSINOPHILS (test code = 1012) 1 % PLATELET COUNT (test code = 1015) 250 K/UL BLOOD TYPE AND RH (test code = 3901) AB POSITIVE ANTIBODY SCREEN (test code = 3902) NEGATIVE RUBELLA ANTIBODY SCREEN (test code = 4600) 29 IU/ML RUBELLA IgG INTERP (test code = 46695) REACTIVE HEPATITIS B SURF AG (test code = 2739) NON-REACTIVE RPR RESULT (test code = 3501) NON-REACTIVE RPR TITER (test code = 3500) NOT INDIC. TITER HIV 1/2 AB/AG RFLX CONF (test code = 3514) NON-REACTIVE Allen HernandezACID HGB [id number] 00:00:00* Test Item Value Reference Range Interpretation Comme nts HEMOGLOBIN A1 (test code = 2575) 97.1 % HEMOGLOBIN A2 (test code = 2576) 2.9 % HEMOGLOBIN F () (test c ode = 2722) 0.0 % HEMOGLOBIN S (test code = 2724) NONE % HEMOGLOBIN C (test code = 2726) NONE % ACID HEMOGLOBIN FINDINGS (te st code = 24611) NONE PATHOLOGIST'S INTERPRETATION (test code = 2577) (NOTE) Allen [id number] 00:00:00* Test Item Value Reference Range Interpretation Comme nts TSH (test code = 2821) 1.2 UIU/ML Allen HernandezHEPATITIS C [id number] 00:00:00* Test Item Value Reference Range Interpretation Comme nts HEPATITIS C ANTIBODY (test c ode = 5049) NON-REACTIVE Allen HernandezOBSTETRIC PANEL + [id number] 00:00:00* Test Item Value Reference Range Interpretation Comme nts WBC (test code = 1001) 9.8 K/UL RBC (test code = 1002) 4.39 M/UL HEMOGLOBIN (test code = 1003) 12.6 G/DL HEMATOCRIT (test code = 1004) 38.3 % MCV (test code = 1005) 87.2 fL MCH (test code = 1006) 28.7 PG MCHC (test code = 1007) 32.9 G/DL RDW (test code = 1038) 12.9 % NEUTROPHILS (test code = 1008) 75 % LYMPHOCYTES (test code = 1010) 19 % MONOCYTES (test code = 1011) 5 % EOSINOPHILS (test code = 1012) 1 % PLATELET COUNT (test code = 1015) 250 K/UL BLOOD TYPE AND RH (test code = 3901) AB POSITIVE ANTIBODY SCREEN (test code = 3902) NEGATIVE RUBELLA ANTIBODY SCREEN (test code = 4600) 29 IU/ML RUBELLA IgG INTERP (test code = 85798) REACTIVE HEPATITIS B SURF AG (test code = 2739) NON-REACTIVE RPR RESULT (test code = 3501) NON-REACTIVE RPR TITER (test code = 3500) NOT INDIC. TITER HIV 1/2 AB/AG RFLX CONF (test code = 0704) NON-REACTIVE Allen HernandezACID HGB [id number] 00:00:00* Test Item Value Reference Range Interpretation Comme nts HEMOGLOBIN A1 (test code = 2575) 97.1 % HEMOGLOBIN A2 (test code = 2576) 2.9 % HEMOGLOBIN F () (test c ode = 2722) 0.0 % HEMOGLOBIN S (test code = 2724) NONE % HEMOGLOBIN C (test code = 2726) NONE % ACID HEMOGLOBIN FINDINGS (te st code = 65140) NONE PATHOLOGIST'S INTERPRETATION (test code = 2577) (NOTE) Allen [id number] 00:00:00* Test Item Value Reference Range Interpretation Comme nts TSH (test code = 2821) 1.2 UIU/ML Allen HernandezHEPATITIS C [id number] 00:00:00* Test Item Value Reference Range Interpretation Comme nts HEPATITIS C ANTIBODY (test c ode = 4963) NON-REACTIVE Allen HernandezOBSTETRIC PANEL + [id number] 00:00:00* Test Item Value Reference Range Interpretation Comme nts WBC (test code = 1001) 9.8 K/UL RBC (test code = 1002) 4.39 M/UL HEMOGLOBIN (test code = 1003) 12.6 G/DL HEMATOCRIT (test code = 1004) 38.3 % MCV (test code = 1005) 87.2 fL MCH (test code = 1006) 28.7 PG MCHC (test code = 1007) 32.9 G/DL RDW (test code = 1038) 12.9 % NEUTROPHILS (test code = 1008) 75 % LYMPHOCYTES (test code = 1010) 19 % MONOCYTES (test code = 1011) 5 % EOSINOPHILS (test code = 1012) 1 % PLATELET COUNT (test code = 1015) 250 K/UL BLOOD TYPE AND RH (test code = 3901) AB POSITIVE ANTIBODY SCREEN (test code = 3902) NEGATIVE RUBELLA ANTIBODY SCREEN (test code = 4600) 29 IU/ML RUBELLA IgG INTERP (test code = 37228) REACTIVE HEPATITIS B SURF AG (test code = 2739) NON-REACTIVE RPR RESULT (test code = 3501) NON-REACTIVE RPR TITER (test code = 3500) NOT INDIC. TITER HIV 1/2 AB/AG RFLX CONF (test code = 3514) NON-REACTIVE Allen HernandezACID HGB [id number] 00:00:00* Test Item Value Reference Range Interpretation Comme nts HEMOGLOBIN A1 (test code = 2575) 97.1 % HEMOGLOBIN A2 (test code = 2576) 2.9 % HEMOGLOBIN F () (test c ode = 2722) 0.0 % HEMOGLOBIN S (test code = 2724) NONE % HEMOGLOBIN C (test code = 2726) NONE % ACID HEMOGLOBIN FINDINGS (te st code = 23718) NONE PATHOLOGIST'S INTERPRETATION (test code = 2577) (NOTE) Allen [id number] 00:00:00* Test Item Value Reference Range Interpretation Comme nts TSH (test code = 2821) 1.2 UIU/ML Allen HernandezHEPATITIS C [id number] 00:00:00* Test Item Value Reference Range Interpretation Comme nts HEPATITIS C ANTIBODY (test c ode = 1614) NON-REACTIVE Allen HernandezOBSTETRIC PANEL + [id number] 00:00:00* Test Item Value Reference Range Interpretation Comme nts WBC (test code = 1001) 9.8 K/UL RBC (test code = 1002) 4.39 M/UL HEMOGLOBIN (test code = 1003) 12.6 G/DL HEMATOCRIT (test code = 1004) 38.3 % MCV (test code = 1005) 87.2 fL MCH (test code = 1006) 28.7 PG MCHC (test code = 1007) 32.9 G/DL RDW (test code = 1038) 12.9 % NEUTROPHILS (test code = 1008) 75 % LYMPHOCYTES (test code = 1010) 19 % MONOCYTES (test code = 1011) 5 % EOSINOPHILS (test code = 1012) 1 % PLATELET COUNT (test code = 1015) 250 K/UL BLOOD TYPE AND RH (test code = 3901) AB POSITIVE ANTIBODY SCREEN (test code = 3902) NEGATIVE RUBELLA ANTIBODY SCREEN (test code = 4600) 29 IU/ML RUBELLA IgG INTERP (test code = 23755) REACTIVE HEPATITIS B SURF AG (test code = 2739) NON-REACTIVE RPR RESULT (test code = 3501) NON-REACTIVE RPR TITER (test code = 3500) NOT INDIC. TITER HIV 1/2 AB/AG RFLX CONF (test code = 3514) NON-REACTIVE Allen HernandezACID HGB [id number] 00:00:00* Test Item Value Reference Range Interpretation Comme nts HEMOGLOBIN A1 (test code = 2575) 97.1 % HEMOGLOBIN A2 (test code = 2576) 2.9 % HEMOGLOBIN F () (test c ode = 2722) 0.0 % HEMOGLOBIN S (test code = 2724) NONE % HEMOGLOBIN C (test code = 2726) NONE % ACID HEMOGLOBIN FINDINGS (te st code = 37082) NONE PATHOLOGIST'S INTERPRETATION (test code = 2577) (NOTE) Allen [id number] 00:00:00* Test Item Value Reference Range Interpretation Comme nts TSH (test code = 2821) 1.2 UIU/ML Allen HernandezPAP TEST, THINPREP, [id number] 00:00:00* Test Item Value Reference Range Interpretation Comme nts SOURCE: (test code = 8001) A) Cervical/Endocervical SLIDES: (test code = 8011) 1 LMP: (test code = 8021) 01/09/2016 SPECIMEN ADEQUACY: (test code = 17304) (NOTE) INTERPRETATION: (test code = 52426) NO EPITHELIAL ABNORMALITY SEE BELOW SUPERVISOR CORE DRILLING: (test code = 8101) [place], [place](ASCP) LOCATION: (test code = 71080) (NOTE) CPT: (test code = 8140) (NOTE) Allen HernandezPAP TEST, THINPREP, [id number] 00:00:00* Test Item Value Reference Range Interpretation Comme nts SOURCE: (test code = 8001) A) Cervical/Endocervical SLIDES: (test code = 8011) 1 LMP: (test code = 8021) 01/09/2016 SPECIMEN ADEQUACY: (test code = 63548) (NOTE) INTERPRETATION: (test code = 49478) NO EPITHELIAL ABNORMALITY SEE BELOW SUPERVISOR CORE DRILLING: (test code = 8101) [place](ASCP) LOCATION: (test code = 56758) (NOTE) CPT: (test code = 8140) (NOTE) Allen HernandezPAP TEST, THINPREP, [id number] 00:00:00* Test Item Value Reference Range Interpretation Comme nts SOURCE: (test code = 8001) A) Cervical/Endocervical SLIDES: (test code = 8011) 1 LMP: (test code = 8021) 01/09/2016 SPECIMEN ADEQUACY: (test code = 76871) (NOTE) INTERPRETATION: (test code = 41998) NO EPITHELIAL ABNORMALITY SEE BELOW SUPERVISOR CORE DRILLING: (test code = 8101) [facility]: (test code = 50691) (NOTE) CPT: (test code = 8140) (NOTE) Allen Wheeler TEST, THINPREP, [id number] 00:00:00* Test Item Value Reference Range Interpretation Comme nts SOURCE: (test code = 8001) A) Cervical/Endocervical SLIDES: (test code = 8011) 1 LMP: (test code = 8021) 01/09/2016 SPECIMEN ADEQUACY: (test code = 60032) (NOTE) INTERPRETATION: (test code = 52383) NO EPITHELIAL ABNORMALITY SEE BELOW SUPERVISOR CORE DRILLING: (test code = 8101) [facility] LOCATION: (test code = 34303) (NOTE) CPT: (test code = 8140) (NOTE) Allen Hernandez Notes Date/Time Note Provider Source Allen Hernandez [facility]2024-06-20 00:00:00 Allen Hernandez [facility]2024-06-06 00:00:00 Allen Hernandez [facility]2024-05-21 00:00:00 Allen Hernandez [facility]
[2025-01-03] MEDS ORDERED: NA CHLORIDE 0.9% 1,000 ML ONE (09:23)
[2025-01-03] MEDS ORDERED: MORPHINE 4 MG/ML SYR ONE ×2 (09:23→15:04)
[2025-01-03] MEDS ORDERED: ONDANSETRON 4 MG/2 ML VIAL ONE (09:23)
[2025-01-03] MEDS ORDERED: FAMOTIDINE 20 MG/2 ML VIAL IV ONE (09:23)
[2025-01-03 09:28] LABS: Specific Gravity 1.014 (1.005-1.030)
[2025-01-03 09:29] LABS: Specific Gravity 1.014 (1.005-1.030); Sqamous Epithelial <5 /HPF (None Seen); Urine Bacteria None Seen /HPF (<20); Urine Bilirubin NEGATIVE (Negative); Urine Blood Negative (Negative); Urine Clarity Clear (Clear); Urine Color Light-Yellow (Yellow); Urine Culture Reflex Order NOT NEEDED; Urine Glucose NEGATIVE (Negative); Urine Ketones NEGATIVE (Negative); Urine Microscopic Reflex YN ORDER UMIC; Urine Nitrite NEGATIVE (Negative); Urine Protein NEGATIVE (Negative); Urine RBC <5 /HPF (None Seen); Urine Urobilinogen Normal (Normal); Urine WBC <5 /HPF (<5)
[2025-01-03 10:28] LABS: Absolute Basophils 0.1 K/uL (0-0.5); Absolute Eosinophils 0.2 K/uL (0-0.5); Absolute Monocytes 0.3 K/uL (0.1-1.3); Absolute Neutrophil 4.6 K/uL (1.8-8.0); Eosinophils % 3.2 % (0-4.4); Hematocrit 37.7 % (36.0-45.0); Hemoglobin 12.4 g/dL (12.0-15.0); Lymphocytes % 27.4 % (15.3-44.8); MCH 28.1 pg (27.0-35.0); MCV 85.1 fL (80-100); MPV 9.1 fL (7.6-11.3); Monocytes % 4.6 % (3.3-12.3); Neutrophils % 63.8 % (41.7-73.7); Nucleated Red Blood Cells % 0.1 % (0-0); Platelets 307 thou/uL (152-406); RBC Red Blood Cell Count 4.43 M/uL (3.86-4.86); Red Cell Distribution Width 13.2 % (12.1-15.2)
[2025-01-03 10:57] LABS: Albumin 3.5 g/dL (3.4-5.0); Bilirubin Total 0.3 mg/dL (0.2-1.0); Globulin 3.5 g/dL (2.3-3.5)
--- NOTE | 2025-01-03 11:26 | RAD REPORT ---
EXAMINATION: CT ABDOMEN AND PELVIS WITH CONTRAST CLINICAL INDICATION: Abdominal pain TECHNIQUE: CT abdomen and pelvis was performed, after the administration of 100 cc Isovue-300.. Sagit britni and coronal reconstructions were obtained. One or more of the following dose reduction techniques were used: Automated exposure control, adjustment of the mA and kV according to patient si ze, and iterative reconstruction. Unless otherwise specified, incidental findings do not require dedicated imaging follow-up. [id number]. Oral contrast was not given which limits evaluation of bowel and appendix. COMPARISON: .None FINDINGS: Multiple gallstones better seen on an ultrasound same date. Gallbladder wall is mildly thickened. Liver, spleen, pancreas, adrenals and kidneys appear unremarkable No evidence of diverticulitis. [id number] umbilical hernia contains fat. Mild diastases rectus abdominis muscles. No adnexal mass. : IMPRESSION: Cholelithiasis. Mildly thickened gallbladder wall probably cholecystitis
--- NOTE | 2025-01-03 11:27 | RAD REPORT ---
EXAM: Right upper quadrant ultrasound. CLINICAL HISTORY: Abdominal pain COMPARISON: None FINDINGS: Multiple gallstones are present. Common bile duct 7 mm. Gallbladder wall mildly thickened. IMPRESSION: Cholelithiasis Mild gallbladder wall thickening probably cholecystitis Mild dilatation of the common bile duct may indicate choledocholithiasis
[2025-01-03] MEDS ORDERED: NA CHLORIDE 0.9% 100 ML ONE (12:29)
[2025-01-03] MEDS ORDERED: PIPERACIL/TAZO 3.375 GM VIAL IV ONE (12:29)
--- NOTE | 2025-01-03 12:36 | ER ---
Nurse's Notes [facility] Name: Abigail Arias Age: 29 yrs Sex: Female : 1995 Arrival Date: 01/03/2025 Time: 08:46 Bed 17 Private MD: Diagnosis: Epigastric abdominal tenderness;Cholecystitis, unspecified;Other cholelithiasis with obstruction Presentation: 01/03 08:54 Chief complaint: Patient states: Epigastric pain x 2 months, worse with eating. jl7 Coronavirus screen: At this time, the client does not indicate any symptoms associated with coronavirus-19. Ebola Screen: No symptoms or risks identified at this time. Initial Sepsis Screen: Does the patient meet any 2 criteria? No. Patient's initial sepsis screen is negative. Does the patient have a suspected source of infection? No. Patient's initial sepsis screen is negative. Risk Assessment: Do you want to hurt yourself or someone else? Patient reports no desire to harm self or others. Onset of symptoms is unknown. 08:54 Method Of Arrival: Ambulatory jl7 08:54 Acuity: TRENT 3 jl7 Triage Assessment: 08:56 General: Appears in no apparent distress. uncomfortable, Behavior is calm, cooperative, jl7 appropriate for age. Pain: Complains of pain in epigastric area Pain currently is 10 out of 10 on a pain scale. GI: Reports upper abdominal pain, nausea. HARDNESS TESTER: 08:56 LMP 12/23/2024, unknown jl7 Historical: - Allergies: 08:56 No Known Allergies; jl7 - PMHx: 08:56 Depressive disorder; jl7 - Immunization history:: Adult Immunizations up to date. - Infectious Disease History:: Denies. - Social history:: Smoking status: Patient reports the use of cigarette tobacco products, smokes one-half pack cigarettes per day. Screenin:03 [facility] ED Fall Risk Assessment (Adult) History of falling in the last 3 months, kc6 including since admission No falls in past 3 months (0 pts) Confusion or Disorientation No (0 pts) Intoxicated or Sedated No (0 pts) Impaired Gait No (0 pts) Mobility Assist Device Used No (0 pt) Altered Elimination No (0 pt) Score/Fall Risk Level 0 - 2 = Low Risk Oriented to surroundings, Maintained a safe environment, Educated pt \T\ family on fall prevention, incl call for assistance when getting out of bed. Abuse screen: Denies threats or abuse. Denies injuries from another. Nutritional screening: No deficits noted. Tuberculosis screening: No symptoms or risk factors identified. Assessment: 09:26 General: Appears in no apparent distress. uncomfortable, well groomed, well developed, kc6 Behavior is calm, cooperative, appropriate for age. Pain: Complains of pain in abdomen and epigastric area Pain does not radiate. Pain began x2 mo Is intermittent. Neuro: Level of Consciousness is awake, alert, obeys commands, Oriented to person, place, time, situation, Appropriate for age. Cardiovascular: Capillary refill < 3 seconds. Respiratory: Airway is patent Trachea midline Respiratory effort is even, unlabored, Respiratory pattern is regular, symmetrical. GI: Abdomen is round non-distended, Bowel sounds present X 4 quads. Abd is soft X 4 quads Abdomen is tender to palpation in epigastric area Reports upper abdominal pain, intolerance of fluids, intolerance of food, nausea, vomiting, Patient currently denies diarrhea. : No signs and/or symptoms were reported regarding the genitourinary system. Urine is clear. EENT: No signs and/or symptoms were reported regarding the EENT system. Derm: No signs and/or symptoms reported regarding the dermatologic system. Skin is intact, is healthy with good turgor, Skin is dry, Skin is pale, Skin temperature is warm. Musculoskeletal: No signs and/or symptoms reported regarding the musculoskeletal system. Circulation, motion, and sensation intact. Range of motion: intact in all extremities. 10:45 Reassessment: Patient appears in no apparent distress at this time. No changes from kc6 previously documented assessment. Patient and/or family updated on plan of care and expected duration. Pain level reassessed. Patient is alert, oriented x 3, equal unlabored respirations, skin warm/dry/pink. 12:03 Reassessment: Patient appears in no apparent distress at this time. No changes from kc6 previously documented assessment. Patient and/or family updated on plan of care and expected duration. Pain level reassessed. Patient is alert, oriented x 3, equal unlabored respirations, skin warm/dry/pink. Vital Signs: 08:54 BP 126 / 84; Pulse 86; Resp 17; Temp 97; Pulse Ox 96% ; Weight 91.17 kg; Height 5 ft. 4 jl7 in. ; Pain 10/10; 10:45 BP 141 / 76; Pulse 50; Resp 15 S; Pulse Ox 98% on R/A; kc6 12:42 BP 138 / 86; Pulse 53; Resp 15 S; Pulse Ox 100% on R/A; kc6 08:54 Body Mass Index 34.50 (91.17 kg, 162.56 cm) jl7 08:54 Pain Scale: Adult [facility] ED Course: 08:48 Patient arrived in ED. mr 08:51 Henrietta Zayas, RN is Primary Nurse. kc6 08:56 Triage completed. jl7 08:56 Arm band placed on right wrist. jl7 09:03 Mert Plasencia MD is Attending Physician. [facility] 09:03 Patient has correct armband on for positive identification. Bed in low position. Call kc light in reach. Side rails up X 1. Adult w/ patient. Pulse ox on. NIBP on. Door closed. Noise minimized. Lights dimmed. Pillow given. 09:03 Patient maintains SpO2 saturation greater than 95% on room air. kc6 09:26 Initial lab(s) drawn, by energy systems laboratory director, sent to lab. Urine collected: clean catch specimen, kc6 clear. Missed attempt(s): 22 gauge in left forearm. 09:29 CBC with Diff Sent. bc6 09:29 CMP Sent. bc6 09:29 Lipase Sent. bc6 09:29 Urinalysis w/ reflexes Sent. bc6 09:36 Abdomen Limited US In Process Unspecified. EDMS 10:00 Missed attempt(s): 24 gauge in left forearm. Bleeding controlled, band aid applied, jl7 catheter tip intact. 10:10 Missed attempt(s): 22 gauge in left antecubital area. Bleeding controlled, band aid jl7 applied, catheter tip intact. 10:15 Missed attempt(s): 20 gauge in right antecubital area. Bleeding controlled, band aid jl7 applied, catheter tip intact. 10:30 Accessed peripheral vein via ultrasound, utilizing dynamic ultrasound technique using ss 20G Nexia IV catheter ,sterile technique, per hospital protocol. Clean \T\ dry. Dressing intact. Good blood return. Flushes easily. R AC. 11:04 CT Abd/Pelvis - IV Contrast Only In Process Unspecified. EDMS 12:34 Diomedes Nance is Hospitalizing Provider. [facility] 15:57 No provider procedures requiring assistance completed. Patient admitted, IV remains in kc6 place. Administered Medications: 10:40 Drug: Famotidine IVP 20 mg IVP once; dilute with 10 mL 0.9% NaCl; give over 2 minutes kc6 Route: IVP; Site: right upper arm; 12:04 Follow up: Response: No adverse reaction kc6 10:40 Drug: Ondansetron IVP 4 mg IVP once; over 2 minutes Route: IVP; Site: right upper arm; kc6 12:03 Follow up: Response: No adverse reaction kc6 10:40 Drug: morphine IVP or IV 4 mg IVP once over 4 mins Route: IVP; Infused Over: 4 mins; kc6 Site: right upper arm; 12:03 Follow up: Response: No adverse reaction; Pain is unchanged, physician notified kc6 10:40 Drug: NS 0.9% IV 1000 ml IV at 1 bolus Per protocol; to be given as a bolus over 60 kc6 minutes Route: IV; Rate: 1 bolus; Site: right upper arm; 12:04 Follow up: Response: No adverse reaction; IV Status: Completed infusion; IV Intake: kc6 1000ml 12:42 Drug: Piperacillin-Tazobactam IVPB 3.375 grams IVPB once over 60 mins; (mix in NS 100 kc6 mL) Route: IVPB; Infused Over: 60 mins; Site: right upper arm; Medication: 15:58 VIS not applicable for this client. kc6 Intake: 12:04 IV: 1000ml; Total: 1000ml. kc6 Outcome: 12:35 Decision to Hospitalize by Provider. [facility] 15:57 Admitted to Med/surg accompanied by meghana, via wheelchair, room 208, with chart, Report kc6 called to JOBY Howard 15:57 Condition: good 15:57 Instructed on the need for admit, 15:58 Patient left the ED. kc6 Signatures: Dispatcher [employer] EDMS Mert Plasencia MD MD cha Rivera, Mary, Reg Reg Michelle Lujan, RN RN ss David Mccallum RN RN [email or web address] Henrietta Zayas RN RN kc6 Kassandra Wei [facility]
--- NOTE | 2025-01-03 12:36 | EDPHYS ---
Physician Documentation [facility] Name: Abigail Arias Age: 29 yrs Sex: Female : 1995 Arrival Date: 01/03/2025 Time: 08:46 Bed 17 Private MD: SANG Physician Mert Plasencia HPI: 01/03 10:12 This 29 yrs old Female presents to ER via Ambulatory with complaints of mira Abdominal Pain. 10:12 The patient presents with abdominal pain in the epigastric area, in the upper abdomen. mira Onset: The symptoms/episode began/occurred 2 day(s) ago. The symptoms do not radiate. Associated signs and symptoms: none. Modifying factors: The symptoms are alleviated by nothing, the symptoms are aggravated by food. Severity of pain: At its worst the pain was moderate severe in the emergency department the pain has improved moderately. The patient has experienced similar episodes in the past, multiple times. SENIOR PRINCIPAL: 08:56 LMP 12/23/2024, unknown jl7 Historical: - Allergies: 08:56 No Known Allergies; jl7 - PMHx: 08:56 Depressive disorder; jl7 - Immunization history:: Adult Immunizations up to date. - Infectious Disease History:: Denies. - Social history:: Smoking status: Patient reports the use of cigarette tobacco products, smokes one-half pack cigarettes per day. ROS: 10:15 Constitutional: Negative for fever, chills, and weight loss, Eyes: Negative for injury, mira pain, redness, and discharge, ENT: Negative for injury, pain, and discharge, Neck: Negative for injury, pain, and swelling, Cardiovascular: Negative for chest pain, palpitations, and edema, Respiratory: Negative for shortness of breath, cough, wheezing, and pleuritic chest pain, Back: Negative for injury and pain, : Negative for injury, bleeding, discharge, and swelling, MS/Extremity: Negative for injury and deformity, Skin: Negative for injury, rash, and discoloration, Neuro: Negative for headache, weakness, numbness, tingling, and seizure, Psych: Negative for depression, anxiety, suicide ideation, homicidal ideation, and hallucinations, Allergy/Immunology: Negative for hives, rash, and allergies, Endocrine: Negative for neck swelling, polydipsia, polyuria, polyphagia, and marked weight changes, Hematologic/Lymphatic: Negative for swollen nodes, abnormal bleeding, and unusual bruising, 10:15 Abdomen/GI: Positive for abdominal pain, nausea, abdominal cramps, of the epigastric area, right upper quadrant and left upper quadrant, Exam: 10:15 Constitutional: This is a well developed, well nourished patient who is awake, alert, mira and in no acute distress. Head/Face: Normocephalic, atraumatic. Eyes: Pupils equal round and reactive to light, extra-ocular motions intact. Lids and lashes normal. Conjunctiva and sclera are non-icteric and not injected. Cornea within normal limits. Periorbital areas with no swelling, redness, or edema. ENT: Nares patent. No nasal discharge, no septal abnormalities noted. Tympanic membranes are normal and external auditory canals are clear. Oropharynx with no redness, swelling, or masses, exudates, or evidence of obstruction, uvula midline. Mucous membranes moist. Neck: Trachea midline, no thyromegaly or masses palpated, and no cervical lymphadenopathy. Supple, full range of motion without nuchal rigidity, or vertebral point tenderness. No Meningismus. Chest/axilla: Normal chest wall appearance and motion. Nontender with no deformity. No lesions are appreciated. Cardiovascular: Regular rate and rhythm with a normal S1 and S2. No gallops, murmurs, or rubs. Normal PMI, no JVD. No pulse deficits. Respiratory: Lungs have equal breath sounds bilaterally, clear to auscultation and percussion. No rales, rhonchi or wheezes noted. No increased work of breathing, no retractions or nasal flaring. Back: No spinal tenderness. No costovertebral tenderness. Full range of motion. Skin: Warm, dry with normal turgor. Normal color with no rashes, no lesions, and no evidence of cellulitis. MS/ Extremity: Pulses equal, no cyanosis. Neurovascular intact. Full, normal range of motion., bilateral aka Neuro: Awake and alert, GCS 15, oriented to person, place, time, and situation. Cranial nerves II-XII grossly intact. Motor strength 5/5 in all extremities. Sensory grossly intact. Cerebellar exam normal. Normal gait. Psych: Awake, alert, with orientation to person, place and time. Behavior, mood, and affect are within normal limits. 10:15 Abdomen/GI: Inspection: distension, that is mild, Bowel sounds: normal, Palpation: mild abdominal tenderness, moderate abdominal tenderness, in the epigastric area, right upper quadrant and left upper quadrant, Liver: no appreciated palpable abnormalities, Hernia: not appreciated, Vital Signs: 08:54 BP 126 / 84; Pulse 86; Resp 17; Temp 97; Pulse Ox 96% ; Weight 91.17 kg; Height 5 ft. 4 jl7 in. ; Pain 10/10; 10:45 BP 141 / 76; Pulse 50; Resp 15 S; Pulse Ox 98% on R/A; kc6 12:42 BP 138 / 86; Pulse 53; Resp 15 S; Pulse Ox 100% on R/A; kc6 08:54 Body Mass Index 34.50 (91.17 kg, 162.56 cm) jl7 08:54 Pain Scale: Adult jl7 MDM: 09:03 Medical Screening Exam initiated mira 10:16 Differential diagnosis: cholecystitis, Cholelithiasis, diverticulitis, Endometriosis, mira gastritis, Menorrhagia, Mesenteric ischemia or infarction, non-specific abd pain, pancreatitis, Peritonitis, Pelvic Inflammatory Disease, urinary tract infection. Data reviewed: vital signs, nurses notes, lab test result(s), radiologic studies, CT scan, ultrasound. Consideration of Admission/Observation Escalation of care including admission/observation considered. I considered the following discharge prescriptions or medication management in the emergency department Medications were administered in the Emergency Department. See MAR. Independent interpretation of the following test(s) in the Emergency Department CT Scan: My interpretation is ct abd/pel. Test considered but Not performed: EKG: mo ekg needed. Historians other than the Patient: pt well informed. Care significantly affected by the following chronic conditions: depression. Counseling: I had a detailed discussion with the patient and/or guardian regarding the historical points, exam findings, and any diagnostic results supporting the discharge/admit diagnosis, lab results, radiology results. 01/03 09:04 Order name: CBC with Diff; Complete Time: 12:23 [facility] 01/03 09:04 Order name: CMP; Complete Time: 12:23 [facility] 01/03 09:04 Order name: Lipase; Complete Time: 12:23 [facility] 01/03 09:04 Order name: Test, Urine; Complete Time: 12:23 [facility] 01/03 09:04 Order name: Urinalysis w/ reflexes; Complete Time: 12:23 [facility] 01/03 14:38 Order name: CBC with Automated Diff [facility] 01/03 14:38 Order name: CBC with Automated Diff [facility] 01/03 14:38 Order name: Comprehensive Metabolic Panel [facility] 01/03 14:38 Order name: Comprehensive Metabolic Panel [facility] 01/03 14:38 Order name: Lipid Profile [facility] 01/03 14:38 Order name: Lipid Profile [facility] 01/03 09:04 Order name: Abdomen Limited US; Complete Time: 12:23 [facility] 01/03 09:04 Order name: CT Abd/Pelvis - IV Contrast Only; Complete Time: 12:23 [facility] 01/03 12:28 Order name: Cholangiogram [facility] 01/03 14:38 Order name: CONS Physician Consult [facility] 01/03 09:04 Order name: IV Saline Lock; Complete Time: 10:33 [facility] 01/03 09:04 Order name: Labs collected and sent; Complete Time: 09:26 [facility] 01/03 09:46 Order name: Labs - recollect needed: recollect green top; Complete Time: 10:33 bd Administered Medications: 10:40 Drug: Famotidine IVP 20 mg IVP once; dilute with 10 mL 0.9% NaCl; give over 2 minutes kc6 Route: IVP; Site: right upper arm; 12:04 Follow up: Response: No adverse reaction kc6 10:40 Drug: Ondansetron IVP 4 mg IVP once; over 2 minutes Route: IVP; Site: right upper arm; kc6 12:03 Follow up: Response: No adverse reaction kc6 10:40 Drug: morphine IVP or IV 4 mg IVP once over 4 mins Route: IVP; Infused Over: 4 mins; kc6 Site: right upper arm; 12:03 Follow up: Response: No adverse reaction; Pain is unchanged, physician notified kc6 10:40 Drug: NS 0.9% IV 1000 ml IV at 1 bolus Per protocol; to be given as a bolus over 60 kc6 minutes Route: IV; Rate: 1 bolus; Site: right upper arm; 12:04 Follow up: Response: No adverse reaction; IV Status: Completed infusion; IV Intake: kc6 1000ml 12:42 Drug: Piperacillin-Tazobactam IVPB 3.375 grams IVPB once over 60 mins; (mix in NS 100 kc6 mL) Route: IVPB; Infused Over: 60 mins; Site: right upper arm; Disposition Summary: 01/03/25 12:35 Hospitalization Ordered Notes: Hospitalization Status: Observation mira Provider: Diomedes Nance cha Location: Telemetry/MedSurg (observation) mira Condition: Stable mira Problem: new mira Symptoms: have improved mira Bed/Room Type: Standard [facility] Room Assignment: 208(01/03/25 14:55) bd Diagnosis - Epigastric abdominal tenderness mira - Cholecystitis, unspecified mira - Other cholelithiasis with obstruction mira Forms: - Medication Reconciliation Form mira - SBAR form mira - Leadership Thank You Letter mira Signatures: Dispatcher [employer] EDMS Jazmin Burroughs Corey, MD MD cha Leal, Jahala RN RN jl7 Henrietta Zayas RN RN kc6 Corrections: (The following items were deleted from the chart) 09:05 09:05 CBC+H.LAB.BRZ ordered. EDMS EDMS 09:05 09:05 COMPREHENSIVE METABOLIC PANEL+C.LAB.BRZ ordered. EDMS EDMS 09:05 09:05 LIPASE+C.LAB.BRZ ordered. EDMS EDMS 09:05 09:05 Test, Urine+UC.LAB.BRZ ordered. EDMS EDMS 09:05 09:05 Urinalysis+U.LAB.BRZ ordered. EDMS EDMS 09:05 09:05 Abdomen Limited+US.RAD.BRZ ordered. EDMS EDMS 09:05 09:05 Abdomen Pelvis W Con+CT.RAD.BRZ ordered. EDMS EDMS 14:55 12:35 mira bd
--- NOTE | 2025-01-03 14:29 | P.HP ---
Certification for Inpatient Patient admitted to: Observation With expected LOS: <2 Midnights Patient will require the following post-hospital care: None Practitioner: I am a practitioner with admitting privileges, knowledge of patient current condition, hospital course, and medical plan of care. Services: Services provided to patient in accordance with Admission requirements found in Title 42 Section 412.3 of the Code of Federal Regulations <Neelima Zhu - Last Filed: 01/03/25 15:17> Patient History Date of Service: 01/03/25 Primary Care Provider: CAITLIN Mello Reason for admission: Acute cholecystitis, mildly dilated common bile duct History of Present Illness: Ms. Arias is a 29-year-old patient with no major medical problems status post 3 C-sections with a 2-month history of worsening postprandial abdominal pain. She states the symptoms used to be intermittent and have become more constant. Over the last 3 days. She has had pain more often than not associated with nausea and vomiting of either partially digested food or a foamy substance. Laboratory evaluation in the emergency department are unremarkable. Imaging via ultrasound and CT show cholelithiasis with a mildly thickened gallbladder wall indicating cholecystitis. Each show a mildly dilated common bile duct, LFTs are normal, but MRCP has been ordered. Dr. Saleh was consulted from the emergency department. We will admit her for gentle hydration, IV antibiotics, pain control, and will keep her n.p.o. after midnight for evaluation for surgical procedure in the a.m. Home medications list reviewed: Yes (Wellbutrin) - Past Medical/Surgical History Has patient received pneumonia vaccine in the past: No Diabetic: No -: Mild anxiety/depression -: x 3 Psychosocial/ Personal History: Lives at home with her 3 children - Family History Father -: Hypertension - Social History Smoking Status: Light Tobacco smoker (1-9 cigarettes/day) Alcohol use: No CD- Drugs: No Caffeine use: Yes Place of Residence: Home <Neelima Zhulen - Last Filed: 01/03/25 15:17> Date of Service: 01/03/25 <DAKOTAH Nance - Last Filed: 01/03/25 17:24> Allergies No Known Allergies Allergy (Unverified 05/22/12 00:41) Home Medications: Citalopram [Celexa*] 10 mg PO DAILY 01/03/25 Review of Systems 10-point ROS is otherwise unremarkable General: As per HPI Eyes: Unremarkable ENT: Unremarkable Respiratory: Unremarkable Cardiovascular: Unremarkable Gastrointestinal: Nausea, Vomiting, Abdominal Pain Genitourinary: Unremarkable Musculoskeletal: Unremarkable Integumentary: Unremarkable Neurological: Unremarkable Lymphatics: Unremarkable <Neelima Zhu Jose - Last Filed: 01/03/25 15:17> Physical Examination - Physical Exam General: Alert, In no apparent distress, Oriented x3, Cooperative, Obese HEENT: Atraumatic, Normocephalic Neck: Supple, 2+ carotid pulse no bruit Respiratory: Clear to auscultation bilaterally, Normal air movement Cardiovascular: Normal pulses, Regular rate/rhythm, Normal S1 S2 Capillary refill: <2 Seconds Gastrointestinal: Non-distended, Tenderness (RUQ) Musculoskeletal: No clubbing, No swelling Integumentary: No rashes, No breakdown Neurological: Normal speech, Normal tone, Normal affect Lymphatics: No axilla or inguinal lymphadenopathy External genitalia: Deferred Rectal: Deferred - Studies Laboratory Data (last 24 hrs) 01/03/25 01/03/25 10:29 09:24 WBC 7.30 Hgb 12.4 Hct 37.7 Plt Count 307 Sodium 137 Potassium 4.0 BUN 5 L Creatinine 0.57 Glucose 93 Total Bilirubin 0.3 AST 13 L ALT 24 Alkaline Phosphatase 104 Lipase 37 <Neelima Zhu Jose - Last Filed: 01/03/25 15:17> - Studies Laboratory Data (last 24 hrs) 01/03/25 01/03/25 10:29 09:24 WBC 7.30 Hgb 12.4 Hct 37.7 Plt Count 307 Sodium 137 Potassium 4.0 BUN 5 L Creatinine 0.57 Glucose 93 Total Bilirubin 0.3 AST 13 L ALT 24 Alkaline Phosphatase 104 Lipase 37 <NanceDAKOTAH Ran - Last Filed: 01/03/25 17:24> Assessment and Plan - Plan Acute cholecystitis Cholelithiasis with mildly dilated CBD Clear liquids tonight and then n.p.o. after midnight MRCP IVF Pain/nausea control Zosyn 3.375 g every 8 H Teds General Surgery consulted per ED- Dr. Saleh Discharge Plan: Home Plan to discharge in: 24 Hours - Advance Directives Does patient have a Living Will: No Does patient have a Durable POA for Healthcare: No - Code Status/Comfort Care Code Status Assessed: Yes (Yes) <Neelima Zhu - Last Filed: 01/03/25 15:17> - Plan Acute calculus cholecystitis without complication History of depression Status post section x 3 Severe obesity <DAKOTAH Nance - Last Filed: 01/03/25 17:24>
[2025-01-03] MEDS: MORPHINE 4 MG/ML SYR IV PRN (15:33)
[2025-01-03] MEDS: NA CHLORIDE 0.9% 1,000 ML IV SCH (16:10)
[2025-01-03 16:26] VITALS: BMI 34.2
[2025-01-03] MEDS ORDERED: PIPER TAZO 3.375 GM in NA CHLORIDE 0.9% 100 ML IV SCH (17:00)
[2025-01-03] MEDS: FLU (Fluarix Triv) TS24-25(6MOS UP)/PF 45 MCG/0.5 ML Syringe IM ONE (17:29)
[2025-01-03] MEDS ORDERED: buPROPion HCL 100 MG TAB PO SCH (21:00)
[2025-01-04] MEDS: PIPER TAZO 3.375 GM in NA CHLORIDE 0.9% 100 ML IV SCH (00:53)
[2025-01-04 05:09] LABS: Absolute Basophils 0.1 K/uL (0-0.5); Absolute Eosinophils 0.2 K/uL (0-0.5); Absolute Lymphocytes (CBC) 2.2 K/uL (0.7-4.9); Absolute Monocytes 0.4 K/uL (0.1-1.3); Absolute Neutrophil 3.5 K/uL (1.8-8.0); Eosinophils % 3.8 % (0-4.4); Hematocrit 34.2 % (36.0-45.0); Hemoglobin 11.5 g/dL (12.0-15.0); Lymphocytes % 34.5 % (15.3-44.8); MCH 28.7 pg (27.0-35.0); MCHC 33.8 g/dL (32.0-36.0); MCV 85.1 fL (80-100); MPV 8.6 fL (7.6-11.3); Monocytes % 6.6 % (3.3-12.3); Neutrophils % 54.1 % (41.7-73.7); Nucleated Red Blood Cells % 0.3 % (0-0); Platelets 261 thou/uL (152-406); RBC Red Blood Cell Count 4.02 M/uL (3.86-4.86); Red Cell Distribution Width 13.2 % (12.1-15.2)
[2025-01-04 05:32] LABS: ALT/SGPT 21 U/L (13-56); Albumin 3.1 g/dL (3.4-5.0); Albumin/Globulin Ratio 0.9 (1.1-1.8); Alkaline Phosphatase 89 U/L (45-117); Anion Gap 8.8 mEq/L (5.0-15.0); BUN Blood Urea Nitrogen 3 mg/dL (7-18); Bicarbonate 24 mEq/L (21-32); Bilirubin Total 0.4 mg/dL (0.2-1.0); Globulin 3.3 g/dL (2.3-3.5); Glomerular Filtration Rate 121 ml/min (=/>90); Glucose Level 89 mg/dL (74-106); HDL Cholesterol 48 mg/dL (40-60); LDL Cholesterol, Calculated 79 mg/dL (<130); LDL Cholesterol,Calc NonReport 79; Potassium 3.8 mEq/L (3.5-5.1); Protein, Total 6.4 g/dL (6.4-8.2); Sodium Level 141 mEq/L (136-145)
[2025-01-04 06:30] LABS: AST/SGOT < 10 U/L (15-37)
[2025-01-04] MEDS: CITALOPRAM 10 MG TABLET PO SCH (08:33)
--- NOTE | 2025-01-04 08:55 | RAD REPORT ---
EXAMINATION: MR CHOLANGIOGRAM CLINICAL INDICATION: Female, 29 years old. abd pain TECHNIQUE: Multiplanar, multisequence MR imaging of the abdomen without intravenous contrast, and wit h specific attention to the biliary system. Unless otherwise specified, incidental findings do not require dedicated imaging follow-up. 3D MIP reconstruction performed. COMPARISON: 01/03/2025 FINDINGS: GALLBLADDER: Extensive cholelithiasis. BILE DUCTS: No biliary ductal dilatation. LIVER: Normal in size, contour, and signal without evidence of fatty infiltration or iron deposition. No focal lesion. PANCREAS: Normal signal. No mass, ductal dilation, or tonia-pancreatic fluid. LYMPH NODES: No lymphadenopathy. ADDITIONAL FINDINGS: None. IMPRESSION: Cholelithiasis without significant biliary dilatation. If cholecystitis remains a clinical concern, follow-up nuclear medicine HIDA scan may be useful.
[2025-01-04] MEDS: SUCCINYLCHOLINE 20 MG/ML (10 ML) IV ONE (13:46)
[2025-01-04] MEDS: PROMETHAZINE INJ 25 MG/ML AMP ONE (13:47)
[2025-01-04] MEDS ORDERED: MIDAZOLAM HCL 2 MG/2 ML INJ ONE (13:50)
[2025-01-04] MEDS ORDERED: FENTANYL CITR 100 MCG/2 ML ONE ×3 (13:50→15:17)
[2025-01-04] MEDS ORDERED: propofoL 200 MG/20 ML VIAL IV ONE ×2 (13:50→15:14)
[2025-01-04] MEDS ORDERED: ROCURONIUM 50 MG/5 ML VIAL IV ONE (13:50)
[2025-01-04] MEDS: LIDOCAINE HCL/EPINEPHRINE 20 ML MDV ONE (14:26)
[2025-01-04] MEDS: Ringers Lactate 1,000 ML IV ONE (14:32)
[2025-01-04] MEDS ORDERED: dexAMETHasone 10 MG/ML VIAL ONE (14:43)
[2025-01-04] MEDS ORDERED: KETOROLAC 30 MG/ML INJ ONE (14:44)
[2025-01-04] MEDS ORDERED: ONDANSETRON 4 MG/2 ML VIAL ONE (14:44)
[2025-01-04] MEDS ORDERED: MEPERIDINE HCL 25 MG/ML SYR ONE (14:58)
[2025-01-04] MEDS ORDERED: GLYCOPYRROLATE 0.2 MG/ML SYR ONE (15:05)
--- NOTE | 2025-01-04 15:12 | P.OP ---
Preoperative diagnosis: Acute Calculous Cholecystitis Postoperative diagnosis: Acute Calculous Cholecystitis Primary procedure: Laparoscopic Cholecystectomy with ICG Cholangiography Anesthesia: GETA + Local Estimated blood loss: <10cc Specimen: Gallbladder Findings: Short Cystic Duct Complications: None Transferred to: Recovery Room Condition: Good
[2025-01-04] MEDS: PROMETHAZINE INJ 25 MG/ML AMP IV PRN (15:47)
[2025-01-04] MEDS: HYDROMORPHONE HCL 1 MG/ML INJ ONE (15:47)
[2025-01-04] MEDS: FENTANYL CITR 100 MCG/2 ML ONE (15:55)
--- NOTE | 2025-01-04 18:09 | P.PN ---
Date of Service: 01/04/25 Subjective just back from MRCP, states she is ready for surgery so she can eat again Review of Systems 10-point ROS is otherwise unremarkable General: As per HPI Eyes: Unremarkable ENT: Unremarkable Respiratory: Unremarkable Cardiovascular: Unremarkable Gastrointestinal: mild ruq pain, hunger pain Genitourinary: Unremarkable Musculoskeletal: Unremarkable Integumentary: Unremarkable Neurological: Unremarkable Lymphatics: Unremarkable Physical Examination vitals reviewed - Physical Exam General: Alert, In no apparent distress, Oriented x3, Cooperative, Obese HEENT: Atraumatic, Normocephalic Neck: Supple, 2+ carotid pulse no bruit Respiratory: Clear to auscultation bilaterally, Normal air movement Cardiovascular: Normal pulses, Regular rate/rhythm, Normal S1 S2 Capillary refill: <2 Seconds Gastrointestinal: Non-distended, Tenderness (RUQ) mild Musculoskeletal: No clubbing, No swelling Integumentary: No rashes, No breakdown Neurological: Normal speech, Normal tone, Normal affect Lymphatics: No axilla or inguinal lymphadenopathy External genitalia: Deferred Rectal: Deferred - Studies Laboratory Data (last 24 hrs) 01/03/25 01/03/25 10:29 09:24 WBC 7.30 Hgb 12.4 Hct 37.7 Plt Count 307 Sodium 137 Potassium 4.0 BUN 5 L Creatinine 0.57 Glucose 93 Total Bilirubin 0.3 AST 13 L ALT 24 Alkaline Phosphatase 104 Lipase 37 Assessment and Plan - Plan Acute cholecystitis Cholelithiasis with mildly dilated CBD Clear liquids tonight and then n.p.o. after midnight MRCP - done and normal IVF Pain/nausea control Zosyn 3.375 g every 8 H Teds General Surgery consulted per ED- Dr. Saleh To OR later today (01/04/25) Discharge Plan: Home Plan to discharge in: 24 Hours - Advance Directives Does patient have a Living Will: No Does patient have a Durable POA for Healthcare: No
[2025-01-04] MEDS: HYDROCODONE/APAP 5/325 MG TAB PO PRN (20:32)
[2025-01-05] MEDS: ONDANSETRON 4 MG/2 ML VIAL IV PRN (00:43)
--- NOTE | 2025-01-05 02:05 | OP ---
Date of Procedure: 01/04/2025 Surgeon: Jerry Saleh MD, Preoperative Diagnosis: Acute calculous cholecystitis. Postoperative Diagnosis: Acute calculous cholecystitis. Procedure Performed: Laparoscopic cholecystectomy with indocyanine green cholangiography. Anesthesia: General endotracheal plus local, 1% lidocaine. Estimated Blood Loss: Less than 10 cc. Specimen: Gallbladder. Findings: A very short cystic duct was noted. Umbilical hernia and distended gallbladder with stone s. Complications: None. Disposition: The patient transferred to recovery room in good condition. Procedure In Detail: After informed consent was obtained, the patient was brought to the operating r oom, prepped and draped in the usual sterile fashion after adequate anesthesia achieved. I anestheti zed the area in the supraumbilical position down to subcutaneous tissues. A 5 mm 0 [address] optical tr ocar was introduced into the abdomen without incident or complication. Insufflation was obtained to 15 mmHg at this time. There was no injury to vital structures upon entry into the abdomen. Three ad ditional trocars placed, one in the epigastrium, one in the right upper quadrant, and one in the righ t mid abdomen. All of these were similarly anesthetized, sharply incised. A 5 mm trocar was placed under direct visualization without incident or complication. The umbilical trocar then upsized to 12 mm under direct vision without incident or complication. The patient was positioned head up right-s becky up position. Ratcheted grasper was used to grasp the patient's gallbladder and placed it towards the patient's right shoulder. Dissection continued down the Hiro's pouch of the gallbladder wer e 2 structures identified as both cystic duct and cystic artery. The gallbladder was distended and f ull of stones with a stone near the neck of the gallbladder. I was able to manipulate it out of the way to allow for manipulation of the Hiro's pouch of the gallbladder. A very short cystic duct w as noted at this area. I performed indocyanine green cholangiography confirming the anatomic structu res as described with a slightly extrahepatic course of the common bile duct just at the takeoff of t he cystic duct junction. I dissected around this area using meticulous dissection, predominantly ritu nt dissection to allow for placement of double titanium clips proximally and singly distally on both the cystic duct and cystic artery. These structures were then ligated between Endo Catia without in cident or complication. The gallbladder was then removed from the hepatic fossa, sent off for pathol ogic examination. The abdomen was re-insufflated at this point. Minimal hemostatic measures require d at the midportion of the hepatic fossa. After this was completed, the area was copiously irrigated , suctioned out completely dry. No additional hemostatic required. Indocyanine green cholangiograph y was performed showing no acute at the end of the procedure. The was position ed back in neutral position. Remaining effluent was suctioned out. Additionally, the patient did wilks ve a significant umbilical hernia. I then turned my attention to the umbilical trocar site where the umbilical hernia was appreciated inferior to this. There was no injury to any structures upon entry of the umbilical hernia. I then at this point closed the 12 mm trocar site using a Saturnino-Violetta suture passer with 0 Vicryl in interrupted fashion with good approximation of tissues. The abdomen w as then desufflated under direct vision without incident or complication. Remainder of trocars remov ed. All skin edges were then copiously irrigated and closed with 4-0 Monocryl in a running fashion. Dermabond was placed over the top. The patient tolerated the procedure well without evidence of com plication and transferred to PACU in good condition. All counts were correct at the end of the case. MARCIAL/RADHA Voice ID: [id number] Report ID: [id number]
[2025-01-05 08:13] LABS: Absolute Monocytes 0.3 K/uL (0.1-1.3); Absolute Neutrophil 9.5 K/uL (1.8-8.0); Basophils % 0.1 % (0-1.3); Hematocrit 37.8 % (36.0-45.0); Hemoglobin 12.7 g/dL (12.0-15.0); Lymphocytes % 9.1 % (15.3-44.8); MCH 28.5 pg (27.0-35.0); MCHC 33.6 g/dL (32.0-36.0); MCV 84.8 fL (80-100); MPV 8.6 fL (7.6-11.3); Monocytes % 2.5 % (3.3-12.3); Neutrophils % 88.3 % (41.7-73.7); Platelets 315 thou/uL (152-406); RBC Red Blood Cell Count 4.45 M/uL (3.86-4.86)
[2025-01-05 08:53] LABS: Albumin 3.7 g/dL (3.4-5.0); Anion Gap 11.2 mEq/L (5.0-15.0); Bilirubin Total 0.5 mg/dL (0.2-1.0); Globulin 3.8 g/dL (2.3-3.5); Potassium 3.2 mEq/L (3.5-5.1); Protein, Total 7.5 g/dL (6.4-8.2)
[2025-01-05] MEDS: ONDANSETRON 4 MG (ODT) TAB SL ONE (09:46)
[2025-01-05] MEDS: HYDROMORPHONE HCL 2 MG/ML inj IM ONE (09:46)
[2025-01-05 10:20] VITALS: O2SAT 96
[2025-01-05 10:21] LABS: Blood Morphology Comment NOT SEEN (NOT SEEN); Platelet Estimate ADEQ; White Blood Cell Scan OK (OK)
[2025-01-05 12:20] VITALS: BP 125/63; TEMP 98
--- NOTE | 2025-01-05 13:25 | P.DS ---
Admission Date: 01/05/25 Discharge Date: 01/05/25 Primary Care Provider: CAITLIN Mello Disposition: ROUTINE DISCHARGE Discharge Condition: GOOD Reason for Admission: Acute cholecystitis, mildly dilated common bile duct Consultations: Dr. Saleh Procedures: Laparoscopic cholecystectomy Brief History of Present Illness: Ms. Arias is a 29-year-old patient with no major medical problems status post 3 C-sections with a 2-month history of worsening postprandial abdominal pain. She states the symptoms used to be intermittent and have become more constant. Over the last 3 days. She has had pain more often than not associated with nausea and vomiting of either partially digested food or a foamy substance. Laboratory evaluation in the emergency department are unremarkable. Imaging via ultrasound and CT show cholelithiasis with a mildly thickened gallbladder wall indicating cholecystitis. Each show a mildly dilated common bile duct, LFTs are normal, but MRCP has been ordered. Dr. Saleh was consulted from the emergency department. We will admit her for gentle hydration, IV antibiotics, pain control, and will keep her n.p.o. after midnight for evaluation for surgical procedure in the a.m. Hospital Course: Ms. Arias underwent a laparoscopic cholecystectomy 01/04/25 status post a negative ERCP. After surgery she had initially had a lot of nausea and vomiting secondary to anesthesia. This morning she had significant abdominal pain with nausea. Her IV access was lost and she received 1 mg Dilaudid IM and 4 mg of Zofran ODT which resolved her symptoms completely. She is now comfortable, tolerating p.o., passing gas, and eager to go home. She has been surgically cleared by Dr. Saleh and should follow-up in his office in 2 weeks. Vital Signs/Physical Exam: Temp Pulse Resp BP Pulse Ox 98.0 F 58 16 125/63 97 01/05/25 12:00 01/05/25 12:00 01/05/25 12:00 01/05/25 12:01/05/25 12:00 General: Alert, In no apparent distress, Oriented x3, Obese HEENT: Atraumatic, Normocephalic Neck: Supple Respiratory: Clear to auscultation bilaterally, Normal air movement Cardiovascular: Normal pulses, Regular rate/rhythm, Normal S1 S2 Capillary refill: <2 Seconds Gastrointestinal: Tenderness (mild, no discharge from trochar sites) Musculoskeletal: No clubbing, No swelling Integumentary: No rashes Neurological: Normal speech, Normal tone, Normal affect Lymphatics: No axilla or inguinal lymphadenopathy External genitalia: Deferred Rectal: Deferred Laboratory Data at Discharge: WBC 10.80 thou/uL (4.3-10.9) 01/05/25 07:39 Hgb 12.7 g/dL (12.0-15.0) D 01/05/25 07:39 Hct 37.8 % (36.0-45.0) 01/05/25 07:39 Plt Count 315 thou/uL (152-406) 01/05/25 07:39 Sodium 139 mEq/L (136-145) 01/05/25 07:39 Potassium 3.2 mEq/L (3.5-5.1) L D 01/05/25 07:39 BUN 4 mg/dL (7-18) L 01/05/25 07:39 Creatinine 0.64 mg/dL (0.55-1.02) 01/05/25 07:39 Glucose 131 mg/dL (74-106) H 01/05/25 07:39 Total Bilirubin 0.5 mg/dL (0.2-1.0) 01/05/25 07:39 AST 33 U/L (15-37) 01/05/25 07:39 ALT 39 U/L (13-56) 01/05/25 07:39 Alkaline Phosphatase 102 U/L (45-117) 01/05/25 07:39 Triglycerides 169 mg/dL (<150) H 01/04/25 04:38 Cholesterol 161 mg/dL (<200) 01/04/25 04:38 HDL Cholesterol 48 mg/dL (40-60) 01/04/25 04:38 Cholesterol/HDL Ratio 3.35 01/04/25 04:38 Lipase 37 U/L (13-75) 01/03/25 10:29 Home Medications: Citalopram [Celexa*] 10 mg PO DAILY 01/03/25 Amox/Clavulanate [Augmentin 875-125 Tab] 1 each PO BID #14 tab 01/05/25 Promethazine Tab [Phenergan*] 25 mg PO Q6HP PRN #12 tab 01/05/25 New Medications: Amox/Clavulanate [Augmentin 875-125 Tab] 1 each PO BID #14 tab Promethazine Tab [Phenergan*] 25 mg PO Q6HP PRN #12 tab PRN Reason: Nausea / Vomiting Diet: Regular Activity: No lifting more than 10 lbs Followup: [facility] [Primary Care Provider] - Jerry Saleh MD [ACTIVE - CAN ADMIT] -
[2025-01-05] MEDS ORDERED: Mupirocin NASAL 2 APPL/1 GM TUBE NAS SCH (21:00)
== END 2025-01-05 15:35 | disposition home or self-care (01) | DRG 419 ==
LOC: ER 08:46 → ERHOLD 14:30 → 2ND 15:28 → OBSVTOIN 01-05 06:26
PROVIDERS: ADMIT Internal Medicine; ATTEND Internal Medicine
PROC: BF52200 Other Imaging of Gallbladder using Fluorescing Agent, Indocyanine Green Dye, Intraoperative (ICD-10-PCS; 2025-01-04)
PROC: 0FT44ZZ Resection of Gallbladder, Percutaneous Endoscopic Approach (ICD-10-PCS; principal; 2025-01-04 14:00)
PROC: 02HV33Z Insertion of Infusion Device into Superior Vena Cava, Percutaneous Approach (ICD-10-PCS; 2025-01-05)
DX: K80.00 Calculus of gallbladder with acute cholecystitis without obstruction (principal); K83.8 Other specified diseases of biliary tract; E66.01 Morbid (severe) obesity due to excess calories; F17.210 Nicotine dependence, cigarettes, uncomplicated; Z23 Encounter for immunization; Z68.34 Body mass index [BMI] 34.0-34.9, adult; Z79.899 Other long term (current) drug therapy
CPT/HCPCS: 36415; 74177; 74181; 76705; 80053; 80061; 81001; 81025; 83690; 85025; 88304; 96361; 96374; 96375; 99285; G0378; J1100; J1171; J2175; J2250; J2405; J2543; J2550; J2704; J3010; J7030; J7120; Q0162; Q9967

== ENCOUNTER 2025-03-15 09:57 | Emergency (ER) | payer OTHER ==
--- OUTSIDE RECORDS SUMMARY | 2025-03-15 10:07 | XMS REPORT | Continuity of Care Document ---
Author Name Unknown Address [address] [facility] [address]. [address] [place] [address] Organization [facility] [place] Address [address] [facility]. [address] [place] [address] Care Team Providers Care Environmental Services Technician Name Role Phone Pcp, Patient Does Not Have A Primary Care Physic costa [id number]_Samariaa_S Attending Clinician Unavaila ble DAVID SHI Attending Clinician Unavail able Nurse, Adc Pob Immunization Attending Clinician Unavailable David Shi DO Attending Clinician GIANNA MARQUEZ Attending Clinician Unavailable [facility] Attending Clinician UnavailGianna Gomez MD Attending Clinician [phone], Adc Lab Attending Clinician Unavailable Doctor Unassigned, Buhler Attending Clinician U navailGIANNA Hurtado Admitting Clinician Unavailable BILLY_GCBZW_Samariaa_S Admitting Clinician Unavaila ramya Payers Payer Name Policy Type Policy Number Effective Date Expirati on Date Source MEDICARE PART A \T\ B [id number] 2013 00:00:00 [place] [id number] 2017 00:00:00 [id number] Problems Condition Name Condition Details Condition Category Status Onset Date Resolution Date Last Treatment Date Treating Clinician Comments Source Previous section Previous section Disease Active 04-15 00:00: 00 [facility] Single liveborn, born in hospital, delivered by section Single liveborn, born in hospital, delivered by section Disease Active 5-25 00:00: 00 [facility] Supervisio n of high-risk with insufficie nt care in third trimester Supervisio n of high-risk with insufficie nt care in third trimester Disease Active 2019-11 00:00: 00 [facility] 39 weeks gestation of 39 weeks gestation of Disease Active 2019-11 00:00: 00 [facility] High-risk in second trimester High-risk in second trimester Disease Active 2019-11 00:00: 00 [facility] 17 weeks gestation of 17 weeks gestation of Disease Active 2019-11 00:00: 00 [facility] Previous section complicati ng Previous section complicati ng Disease Active 2016-11 00:00: 00 [facility] Allergies, Adverse Reactions, Alerts Allergy Name Allergy Type Status Severity Reaction(s) Onset Date Inactive Date Treating Clinician Comments Source none (Not Checked) Propensi ty to adverse reaction to drug Active 04-27 00:00: 00 Allen Hernandez NO KNOWN ALLERGIE S Drug Class Active [facility] Social History Social Habit Start Date Stop Date Quantity Comments Source ASSERTION 2020-07-28 00:00:00 [facility] History of tobacco use 2010-10-22 00:00:00 Cigarette Smoker [facility] Exposure to SARS-CoV-2 (event) Not sure [facility] Tobacco use and exposure 2020-11-12 00:00:00 2020-11-12 00:00:00 Never used [facility] Alcohol intake 2020-11-12 00:00:00 2020-11-12 00:00:00 Ex-drinker (finding) [facility] Tobacco Comment 2020-11-12 00:00:00 2020-11-12 00:00:00 2 ciggs a day [facility] Sex Assigned At 1995 00:00:00 1995 00:00:00 [facility] Smoking Status Start Date Stop Date Source Former smoker 2021-04-16 00:00:00 2021-04-16 00:00:00 [facility] Current every day smoker 2020-11-12 00:00:00 [facility] Medications Ordered Medication Name Filled Medication Name Start Date Stop Date Current Medication? Ordering Clinician Indication Dosage Frequency Signature (SIG) Comments Components Source Cholestyram ine Light 4 gram oral powder 03-08 00:00: 00 Yes 4gram Allen Hernandez ondansetron 8 mg disintegrat ing tablet 03-08 00:00: 00 Yes 1mg Allen Hernandez citalopram 10 mg tablet 12-18 00:00: 00 Yes 1mg Allen Hernandez bupropion HCl 100 mg tablet 12-18 00:00: 00 Yes 1mg Allen Hernandez Abilify 10 mg tablet 12-18 00:00: 00 Yes 1mg Allen Hernandez Carafate 1 gram tablet 12-15 00:00: 00 Yes 1gram Allen Hernandez omeprazole 20 mg capsule,del ayed release 12-15 00:00: 00 Yes 1mg Allen Hernandez Wellbutrin SR 150 mg tablet, 12 hr sustained-r elease 2023-11 0-14 00:00: 00 Yes 1mg Allen Hernandez Lamictal 25 mg tablet 2023-11 0-14 00:00: 00 Yes 2mg Allen Hernandez bupropion HCl SR 200 mg tablet,12 hr sustained-r elease 2023-11 014 00:00: 00 Yes 1mg Allen Hernandez Abilify 10 mg tablet 2023-11 0-14 00:00: 00 Yes 1mg Allen Hernandez Lamictal 25 mg tablet - 00:00: 00 Yes 2mg Allen Hernandez Abilify 10 mg tablet 30 00:00: 00 Yes 1mg Allen Hernandez Wellbutrin SR 150 mg tablet, 12 hr sustained-r elease -19 00:00: 00 Yes 1mg Allen Hernandez Abilify 15 mg tablet 9-19 00:00: 00 Yes 5mg Allen Hernandez Lamictal 25 mg tablet 2024-0 9-19 00:00: 00 Yes 1mg Allen Hernandez Abilify 15 mg tablet 2023-0 8-21 00:00: 00 Yes 5mg Allen Hernandez gabapentin 100 mg capsule 2023-0 8-21 00:00: 00 Yes 1mg Allen Hernandez Abilify 10 mg tablet 2023-0 7-30 00:00: 00 Yes 1mg Allen Hernandez gabapentin 100 mg capsule 2023-0 7-30 00:00: 00 Yes 1mg Allen Hernandez Abilify 5 mg tablet 2023-0 7-16 00:00: 00 Yes 1mg Allen Hernandez Wellbutrin SR 150 mg tablet, 12 hr sustained-r elease 2023-0 7-16 00:00: 00 Yes 1mg Allen Hernandez propranolol 10 mg tablet 0 7-16 00:00: 00 Yes 1mg Allen Hernandez buspirone 7.5 mg tablet 2023-0 7-16 00:00: 00 Yes 1mg Allen Hernandez Abilify 5 mg tablet 0 7- 00:00: 00 Yes 1mg Allen Hernandez bupropion HCl SR 150 mg tablet,12 hr sustained-r elease 2023-0 7- 00:00: 00 Yes 1mg Allen Hernandez buspirone 5 mg tablet 2023-0 7- 00:00: 00 Yes 1mg Allen Hernandez hydroxyzine HCl 50 mg tablet 2023-0 7-02 00:00: 00 Yes 1mg Allen Hernandez Abilify 5 mg tablet 2023-0 6-18 00:00: 00 Yes 1mg Allen Hernandez bupropion HCl SR 150 mg tablet,12 hr sustained-r elease 2023-0 6-18 00:00: 00 Yes 1mg Allen Hernandez hydroxyzine [...] SR 150 mg tablet,12 hr sustained-r elease 4-0 6-06 00:00: 00 Yes 1mg Allen Hernandez buspirone 5 mg tablet 2023-0 6-06 00:00: 00 Yes 1mg Allen Hernandez hydroxyzine HCl 50 mg tablet 2023-0 6-06 00:00: 00 Yes 1mg Allen Hernandez furosemide 20 mg tablet 2023-0 5-21 00:00: 00 Yes 1mg Allen Hernandez bupropion HCl SR 150 mg tablet,12 hr sustained-r elease 4-0 -08 00:00: 00 Yes 1mg Allen Hernandez Abilify 5 mg tablet 2023-0 5-08 00:00: 00 Yes 1mg Allen Hernandez hydroxyzine HCl 50 mg tablet 2023-0 5-08 00:00: 00 Yes 1mg Allen Hernandez BUPROP 12 SR 100MG 2023-0 5- 00:00: 00 Yes Allen Hernandez HYDROXYZ HCL 50MG 2023-0 5- 00:00: 00 Yes 50 Allen Hernandez Abilify 5 mg tablet 2023-0 -29 00:00: 00 Yes 1mg Allen Hernandez bupropion HCl SR 100 mg tablet,12 hr sustained-r elease 2023-0 - 00:00: 00 Yes 1mg Allen Hernandez hydroxyzine HCl 50 mg tablet 2023-0 -29 00:00: 00 Yes 1mg Allen Hernandez TAKE 1 TAB BY MOUTH EVERY SIX HOURS NEEDED FOR ANXIETY 2023-0 -25 00:00: 00 Yes 50 Allen Hernandez TAKE 1 TABLET DAILY. 2023-0 -25 00:00: 00 Yes 5 Allen Hernandez TAKE 1 TABLET DAILY. 2023-0 4-25 00:00: 00 Yes 100 Allen Hernandez Zoloft 50 mg tablet 2023-0 4-10 00:00: 00 Yes 1mg Allen Hernandez Abilify 5 mg tablet 2023-0 4-10 00:00: 00 Yes 1mg Allen Hernandez hydroxyzine HCl 50 mg tablet 2023-0 4-10 00:00: 00 Yes 1mg Allen Hernandez SERTRALINE 50MG 2023-0 4-10 00:00: 00 Yes Allen Hernandez FLUOXETIN(P ) 20MG 4-03 00:00: 00 Yes Allen Hernandez TAKE 1 TABLET DAILY. 3-25 00:00: 00 Yes 25 Allen Hernandez SERTRALINE 25MG 3-25 00:00: 00 Yes Allen Hernandez TAKE 1 TABLET DAILY. 3-25 00:00: 00 04-04 00:00 :00 No 5 Allen Hernandez TAKE 1 CAPSULE BY MOUTH DAILY (FOR A TOTAL OF 30 MG) - 00:00: 00 04-04 00:00 :00 No 20 Allen Hernandez TAKE 1 TAB BY MOUTH EVERY SIX HOURS NEEDED FOR ANXIETY 02-13 00:00: 00 04-04 00:00 :00 No 50 Allen Hernandez FLUOXETIN(P ) 40MG 01-24 00:00: 00 Yes Allen Hernandez TAKE 1 CAPSULE BY MOUTH ONCE DAILY 3- 00:00: 00 04-04 00:00 :00 No 40 Allen Hernandez TAKE 1 TAB BY MOUTH EVERY SIX HOURS NEEDED FOR ANXIETY - 00:00: 00 04-04 00:00 :00 No 50 Allen Hernandez TAKE 1 TABLET DAILY. 3-04 00:00: 00 04-04 00:00 :00 No 5 Allen Hernandez ARIPIPRAZOL E 5MG 2- 00:00: 00 Yes Allen Hernandez TAKE 1 TABLET DAILY. 2- 00:00: 00 04-04 00:00 :00 No 5 Allen Hernandez TAKE 1 CAPSULE BY MOUTH DAILY (FOR A TOTAL OF 30 MG) 2- 00:00: 00 04-04 00:00 :00 No 10 Allen Hernandez TAKE 1 TAB BY MOUTH EVERY SIX HOURS NEEDED FOR ANXIETY -26 00:00: 00 04-04 00:00 :00 No 50 Allen Hernandez TAKE 1 CAPSULE BY MOUTH DAILY (FOR A TOTAL OF 30 MG) 00:00: 00 04-04 00:00 :00 No 20 Allen Hernandez TAKE 1 TAB BY MOUTH EVERY SIX HOURS NEEDED FOR ANXIETY 01-02 00:00: 00 04-04 00:00 :00 No 50 Allen Hernandez TAKE 1 TABLET DAILY. 2 00:00: 00 04-04 00:00 :00 No 5 Allen Hernandez TAKE 1 CAPSULE BY MOUTH DAILY (FOR A TOTAL OF 30 MG) 12-27 00:00: 00 Yes Allen Hernandez TAKE 1 CAPSULE BY MOUTH DAILY (FOR A TOTAL OF 30 MG) 12-27 00:00: 00 04-04 00:00 :00 No 20 Allen Hernandez TAKE 1 CAPSULE EVERY MORNING. 12-13 00:00: 00 04-04 00:00 :00 No 20 Allen Hernandez TAKE 1 TABLET DAILY. 12-13 00:00: 00 04-04 00:00 :00 No 5 Allen Hernandez TAKE 1 TAB BY MOUTH EVERY SIX HOURS NEEDED FOR ANXIETY 12-13 00:00: 00 04-04 00:00 :00 No 50 Allen Hernandez ARIPIPRAZOL E 5MG 11-30 00:00: 00 Yes Allen Hernandez FLUOXETIN(P ) 20MG 11-30 00:00: 00 Yes Allen Hernandez TAKE 1 TABLET DAILY. 11-30 00:00: 00 04-04 00:00 :00 No 5 Allen Hernandez TAKE 1 CAPSULE EVERY MORNING. 11-30 00:00: 00 04-04 00:00 :00 No 20 Allen Hernandez TAKE ONE TABLET TWICE A DAILY NEEDED FOR ANXIETY 11-30 00:00: 00 04-04 00:00 :00 No 20 Allen Kahlil Hernandez PROPRANOLOL 20MG 2022-11 2 00:00: 00 04-04 00:00 :00 No Allen Kahlil Hernandez ARIPIPRAZOL E 2MG 2022-11 00:00: 00 Yes 2000 Allen Kahlil Hernandez TAKE ONE TABLET TWICE DAILY NEEDED FOR ANXIETY 2022-11 00:00: 00 04-04 00:00 :00 No 20 Allen Hernandez TAKE ONE TABLET BY MOUTH DAILY 2022-11 00:00: 00 04-04 00:00 :00 No 10 Allen Hernandez TAKE 1 TABLET DAILY. 2022-11 00:00: 00 04-04 00:00 :00 No 2 Allen Hernandez TAKE 1 TABLET BY MOUTH EVERY DAY 2022-11 00:00: 00 Yes Allen Hernandez FLUOXETIN(P ) 10MG 2022-11 00:00: 00 Yes Allen Hernandez TAKE 1 TABLET DAILY. 2022-11 00:00: 00 04-04 00:00 :00 No 2 Allen Hernandez TAKE ONE TABLET BY MOUTH DAILY 2022-11 00:00: 00 04-04 00:00 :00 No 10 Allen Hernandez TAKE ONE TABLET TWICE A DAILY NEEDED FOR ANXIETY 2022-11 00:00: 00 04-04 00:00 :00 No 20 Allen Hernandez TAKE ONE TABLET TWICE A DAILY NEEDED FOR ANXIETY 16 00:00: 00 04-04 00:00 :00 No 20 Allen Hernandez TAKE ONE TABLET DAILY AFTER A LARGE MEAL 16 00:00: 00 04-04 00:00 :00 No 20 Allen Hernandez TAKE ONE TABLET TWICE A DAILY NEEDED FOR ANXIETY 16 00:00: 00 04-04 00:00 :00 No 20 Allen Hernandez TAKE 1 TABLET AT BEDTIME. 5-16 00:00: 00 04-04 00:00 :00 No 15 Allen Hernandez TAKE 1 TABLET BY MOUTH 3 TIMES DAILY BEFORE MEALS 3-04 00:00: 00 04-04 00:00 :00 No 10 Allenberenice Hernandez TAKE 1 TABLET 3 TIMES DAILY BEFORE MEALS. 2-07 00:00: 00 04-04 00:00 :00 No 10 Allen Hernandez Dose Unknown 2022-1 0-24 00:00: 00 Yes Allen Hernandez &lt 8-03 00:00: 00 Yes Allen Hernandez NORTREL 0.5/35 (28) 0.5/35 05-12 00:00: 00 Yes Allen Hernandez Dose Unknown 02-16 00:00: 00 Yes Allen Hernandez Dose Unknown 02-16 00:00: 00 Yes Allen Hernandez Dose Unknown 02-16 00:00: 00 Yes Allen Hernandez TAKE 1 TABLET BY MOUTH EVERY DAY 02-16 00:00: 00 Yes Allen Hernandez norethindro ne (contracept mynor) 0.35 mg tablet 06-09 00:00: 00 Yes 1mg Allen Hernandez HYDROcodone -acetaminop hen 5-325 mg tablet 04-17 00:00: 00 Yes [id number] 1{tbl} Take 1 tablet by mouth every 6 (six) hours as needed for Pain (scale 7-10). Indication s: acute pain [facility] ibuprofen 800 mg tablet 04-17 00:00: 00 Yes [id number] 800mg Take 1 tablet by mouth every 8 (eight) hours. [facility] docusate calcium 240 mg capsule 04-17 00:00: 00 Yes [id number] 240mg Take 1 capsule by mouth once daily as needed for Constipati on. [facility] ferrous sulfate 325 mg (65 mg iron) tablet 04-17 00:00: 00 Yes [id number] 325mg Take 1 tablet by mouth 2 (two) times daily. [facility] multivitami n ( VITAMIN) tablet 2019-11 00:00: 00 Yes 1{tbl} Take 1 tablet by mouth daily. [facility] meloxicam 15 mg tablet 01-12 00:00: 00 Yes 1mg Allen Hernandez gabapentin 100 mg capsule 01-12 00:00: 00 Yes 1mg Allen Hernandez ferrous sulfate 325 mg (65 mg iron) tablet 2016-11 00:00: 00 11-12 00:00 :00 No 325mg Take 1 tablet by mouth 2 (two) times daily. [facility] docusate calcium 240 mg capsule 2016-11 00:00: 00 11-12 00:00 :00 No 240mg Take 1 capsule by mouth once daily as needed for Constipati on. [facility] HYDROcodone -acetaminop hen 5-325 mg tablet 2016-11 00:00: 11-12 00:00 :00 No 1{tbl} Take 1 tablet by mouth every 6 (six) hours as needed for Pain (scale 4-6) or Pain (scale 7-10) (Pain scale above 4). [facility] ibuprofen 600 mg tablet 2016-11 00:00: 00 11-12 00:00 :00 No 600mg Take 1 tablet by mouth every 6 (six) hours as needed for Pain (scale 1-3) or Pain (scale 4-6) (Pain). Take with food or milk. [facility] vitamin w/FA tablet 2016-11 00:00: 00 11-12 00:00 :00 No 1{tbl} Take 1 tablet by mouth daily. [facility] promethazin e 25 mg tablet 04-13 00:00: 00 Yes 51mg Allen Hernandez ferrous sulfate 325 mg (65 mg iron) tablet,melani yed release 04-13 00:00: 00 Yes 1(65 mg iron) Allen Kahlil David promethazin e 25 mg tablet 06-23 00:00: 00 Yes 1mg Allen Kahlil David promethazin e 12.5 mg tablet 03-24 00:00: 00 Yes 1mg Allen Kahlil Hernandez Vital Signs Vital Name Observation Time Observation Value Comments S ourcintia Systolic blood pressure 2020-11-12 20:13:00 137 mm[Hg] [facility] Diastolic blood pressure 2020-11-12 20:13:00 80 mm[Hg] [facility] Heart rate 2020-11-12 20:13:00 82 [facility] 2020-11-12 20:13:00 37 Naina [facility] Respiratory rate 2020-11-12 20:13:00 18 /min [facility] Body height 2020-11-12 20:13:00 163.8 cm [facility] Body weight 2020-11-12 20:13:00 79.833 kg [facility] BMI 2020-11-12 20:13:00 29.74 kg/m2 [facility] BP Systolic 2025-03-08 11:00:00 121 mm[Hg] Step hen F David BP Diastolic 2025-03-08 11:00:00 78 mm[Hg] Vinnie phen F David Weight Measured 2025-03-08 11:00:00 192.00 pounds Allen F David Height Measured 2025-03-08 11:00:00 64.00 inches Allen F David Body Temperature 2025-03-08 11:00:00 98.30 degrees Allen F David Heart Rate 2025-03-08 11:00:00 82.00 /min Rachel en F David Respiratory Rate 2025-03-08 11:00:00 Allen F David BP Systolic 2025-01-02 10:57:00 113 mm[Hg] Step hen F David BP Diastolic 2025-01-02 10:57:00 76 mm[Hg] Vinnie phen F David Weight Measured 2025-01-02 10:57:00 202.20 pounds Allen F David Height Measured 2025-01-02 10:57:00 64.00 inches Allen F David Body Temperature 2025-01-02 10:57:00 98.90 degrees Allen F David Heart Rate 2025-01-02 10:57:00 68.00 /min Rachel en F David Respiratory Rate 2025-01-02 10:57:00 Allen F David BP Systolic 2024-12-15 13:38:00 119 mm[Hg] Step hen F David BP Diastolic 2024-12-15 13:38:00 80 mm[Hg] Vinnie [...] Temperature 2024-04-11 08:38:00 97.10 degrees Allen F David Heart Rate 2024-04-11 08:38:00 74.00 /min Rachel [...] Height Measured 2019-11-17 15:03:00 64.00 inches Allen F David Body Temperature 2019-11-17 15:03:00 98.90 degrees Allen F David Heart Rate 2019-11-17 15:03:00 81.00 /min Rachel en F David Respiratory Rate 2019-11-17 15:03:00 Allen Hernandez BP Systolic 2017-12-14 14:18:00 123 mm[Hg] Mynor Hernandez BP Diastolic 2017-12-14 14:18:00 72 mm[Hg] Vinnie Hernandez Weight Measured 2017-12-14 14:18:00 193.20 pounds Allen Hernandez Height Measured 2017-12-14 14:18:00 64.00 inches Allen Hernandez Body Temperature 2017-12-14 14:18:00 98.90 degrees Allen Hernandez Heart Rate 2017-12-14 14:18:00 94.00 /min Rachel en Kahlil Hernandez Respiratory Rate 2017-12-14 14:18:00 16.00 /min Allen Hernandez Procedures Procedure Date / Time Performed Performing Clinicia n Source [id number] Ekg W/ At Least 12 Leads W/ I r 2025-03-08 00:00:00 Allen Hernandez SARS-COV-2 COVID-19 VACCINE,0.3ML,IM (PFIZER) 2021-07-17 19:34:04 Doctor Unassigned, Buhler [facility] FLU VACC ([id number]), 6+ MONTHS, IM, QUAD 2020-11-12 20:51:59 AdumGianna [facility] NOTICE OF BILLING PRACTICES FOR MEDICARE PATIENTS 2020-11-12 06:01:00 Doctor Unassigned, Buhler [facility] POCT TEST 2020-11-12 00:00:00 AdGianna person [facility] POCT URINALYSIS W/O SPECIFIC GRAVITY 2020-11-12 00:00:00 AdGianna person [facility] Encounters Start Date/Time End Date/Time Encounter Type Admission Type Attending [facility] Facility Care Department Encounter ID Source 2021-09-21 20:35:56 Outpatient P IDMB VANESSA [id number] [facility] [place] [place] 2025-03-08 10:52:41 2025-03-08 10:52:41 Outpatient SFA [id number] [id number] Allen Hernandez 2025-03-08 00:00:00 2025-03-08 00:00:00 Outpatient Visit [facility] [id number] Allen Hernandez 2025-01-02 10:49:28 2025-01-02 10:49:28 Outpatient SFA SFA [id number] Allen Hernandez 2025-01-02 00:00:00 2025-01-02 00:00:00 Outpatient Visit SFA [id number] Allen Hernandez 2024-12-18 14:23:37 2024-12-18 14:23:37 Outpatient SFA SFA [id number] Allen Guillory David 2024-12-15 13:29:41 2024-12-15 13:29:41 Outpatient SFA SFA [id number] Allen Guillory David 2024-12-15 00:00:00 2024-12-15 00:00:00 Outpatient Visit SFA [id number] Allen Guillory David 2024-09-04 16:43:36 2024-09-04 16:43:36 Outpatient SFA SFA [id number] Allen Guillory [place] 2024-07-27 13:08:00 2024-07-27 13:08:00 Outpatient SFA SFA [id number] Allen Guillory [place] 2024-07-26 08:40:48 2024-07-26 08:40:48 Outpatient SFA SFA [id number] Allen Guillory [place] 2024-05-11 16:29:11 2024-05-11 16:29:11 Outpatient SFA SFA [id number] Allen Guillory [place] 2024-05-11 00:00:00 2024-05-11 00:00:00 Outpatient Visit SFA [id number] Allen Guillory David 2024-04-27 08:50:48 2024-04-27 08:50:48 Outpatient SFA SFA [id number] Allen Guillory [place] 2024-04-27 00:00:00 2024-04-27 00:00:00 Outpatient Visit SFA [id number] Allen Hernandez 2024-04-21 13:58:57 2024-04-21 13:58:57 Outpatient SFA SFA [id number] Allen Hernandez 2024-04-11 10:42:00 2024-04-11 10:42:00 Outpatient SFA SFA [id number] Allen Guillory David 2024-04-11 00:00:00 2024-04-11 00:00:00 Outpatient Visit SFA [id number] Allen Guillory David 2024-03-29 13:22:27 2024-03-29 13:22:27 Outpatient SFA SFA [id number] Allen Guillory David 2024-03-16 15:38:08 2024-03-16 15:38:08 Outpatient SFA SFA [id number] Allen Guillory [place] 2024-03-01 15:21:47 2024-03-01 15:21:47 Outpatient SFA SFA [id number] Allen Guillory [place] 2024-02-14 14:06:58 2024-02-14 14:06:58 Outpatient SFA SFA [id number] Allen Guillory [place] 2024-01-24 15:07:05 2024-01-24 15:07:05 Outpatient SFA SFA [id number] Allen Guillory [place] 2023-12-27 15:36:58 2023-12-27 15:36:58 Outpatient SFA SFA [id number] Allen Guillory [place] 2023-12-13 14:14:53 2023-12-13 14:14:53 Outpatient SFA SFA [id number] Allen Guillory [place] 2023-09-18 00:00:00 2023-09-18 00:00:00 Outpatient GC_GCBZW_Ka diyala_S PRIV [facility] [id number] [facility] 2023-09-02 08:27:12 2023-09-02 08:27:12 Outpatient SFA SFA [id number] Allen Guillory [place] 2023-07-07 17:54:17 2023-07-07 17:54:17 Outpatient SFA [facility] [id number] Allen Hernandez 2021-08-07 13:10:00 2021-08-07 13:10:00 Outpatient DAVID NINO [facility] [id number] [facility] 2021-07-17 15:10:00 2021-07-17 15:10:00 Outpatient DAVID NINO [facility] [id number] [facility] 2021-07-17 14:22:04 2021-07-17 14:22:11 Imm/Inj Visit Nurse, Michelle Pobailee Immunizatio David Garcia [facility] [id number] [facility] 2021-04-14 07:45:00 2021-04-14 07:45:00 Outpatient GIANNA ANDRADE [facility] [id number] [facility] 2021-04-10 13:30:00 2021-04-10 13:30:00 Outpatient Roman MARQUEZ GIANNA [facility] [id number] [facility] 2021-04-04 13:45:00 2021-04-04 13:45:00 Outpatient GIANNA ANDRADE [facility] [id number] [facility] 2021-03-28 13:45:00 2021-03-28 13:45:00 Outpatient R JIMMY GIANNA [facility] [id number] [facility] 2021-03-25 14:40:00 2021-03-25 14:40:00 Outpatient CARSON GALEANA [facility] [id number] [facility] 2021-03-21 10:45:00 2021-03-21 10:45:00 Outpatient Roman MARQUEZ GIANNA [facility] [id number] [facility] 2021-03-07 13:45:00 2021-03-07 13:45:00 Outpatient R GIANNA MARQUEZ [facility] [id number] [facility] 2021-02-21 10:00:00 2021-02-21 10:00:00 Outpatient R GIANNA MARQUEZ [facility] [id number] [facility] 2021-01-15 14:00:00 2021-01-15 14:00:00 Outpatient R GIANNA MARQUEZ [facility] [id number] [facility] 2021-01-03 13:00:00 2021-01-03 13:00:00 Outpatient P [facility] [id number] [facility] 2020-12-18 14:30:00 2020-12-18 14:30:00 Outpatient R GIANNA MARQUEZ [facility] [id number] [facility] 2020-12-13 10:00:00 2020-12-13 10:00:00 Outpatient P [facility] [id number] [facility] 2020-12-10 11:30:00 2020-12-10 11:30:00 Outpatient R GIANNA MARQUEZ [facility] [id number] [facility] 2020-11-29 00:00:00 2020-11-29 00:00:00 Telephone Adum, Gianna May [facility] [id number] [facility] 2020-11-13 11:31:50 2020-11-13 11:46:50 [employer] Operator Visit 2, Adc Lab AdGianna person [facility] [id number] [facility] 2020-11-13 11:30:00 2020-11-13 11:30:00 Outpatient R [facility] [id number] [facility] 2020-11-12 14:03:08 2020-11-12 15:11:24 Initial Visit Adum, Gianna L [facility] [id number] [facility] 2020-11-12 13:30:00 2020-11-12 13:30:00 Outpatient R GIANNA MARQUEZ [facility] [id number] [facility] 2020-11-12 00:00:00 2020-11-12 00:00:00 Orders Only Doctor Unassigned, Buhler [facility] [id number] [facility] 2020-10-15 14:30:00 2020-10-15 14:30:00 Outpatient R GIANNA MARQUEZ [facility] [id number] [facility] 2020-09-10 13:30:00 2020-09-10 13:30:00 Outpatient R AD, [facility] [id number] [facility] 2020-09-05 13:30:00 2020-09-05 13:30:00 Outpatient R AD [facility] [id number] [facility] Results Test Description Test Time Test Comments Results Result Co mments Source TSH, THIRD [id number] 08:12:01* Test Item Value Reference Range Interpretation Comme [facility] TSH, THIRD GENERATION (test code = 2821) 1.840 UIU/ML 0.400-4.100 [id number] 06:31:23* Test Item Value Reference Range Interpretation Comme [facility] NT-proBNP (test code = 65395) 114 PG/ML SEE BELOW If NT-ProBNP is less than 300 PG/ML, heart failure is unlikely for allages. Age.................Heart Failure Likely <50 Years...........>=450 PG/ML 50-75 Years.........>=900 PG/ML > 75 Years..........>=1800 PG/ML Methodology: Kolby Sirena Electrochemiluminescense Immunoassay UNLESS OTHERWISE INDICATED, ALL TESTING PERFORMED AT [facility] [address] [place] [address] VALUE ADVISOR: LAURENT SANDRA M.D. CLIA NUMBER [id number] [facility] [place]. [id number] COMPREHENSIVE METABOLIC [id number] 05:38:02* Test Item Value Reference Range Interpretation Comme nts GLUCOSE (test code = 2217) 99 MG/DL 70-99 BUN (test code = 220) 7 MG/DL 6-20 CREATININE (test code = 221) 0.67 MG/DL 0.60-1.30 eGFR (2020 CKD-EPI) (test code = 73802) 121 ML/MIN/1.73 >60 CALC BUN/CREAT (test code = 2235) 10 RATIO 6-28 SODIUM (test code = 223) 138 MEQ/L 133-146 POTASSIUM (test code = 2228) 4.5 MEQ/L 3.5-5.4 CHLORIDE (test code = 2215) 102 MEQ/L 95-107 CARBON DIOXIDE (test code = 2206) 24 MEQ/L 19-31 CALCIUM (test code = 2209) 9.8 MG/DL 8.5-10.5 PROTEIN, TOTAL (test code = 2229) 6.9 G/DL 6.1-8.3 ALBUMIN (test code = 2201) 4.3 G/DL 3.5-5.2 CALC GLOBULIN (test code = 2240) 2.6 G/DL 1.9-3.7 CALC A/G RATIO (test code = 223) 1.7 RATIO 1.0-2.6 BILIRUBIN, TOTAL (test code = 2207) 0.3 MG/DL <=1.2 ALKALINE PHOSPHATASE (test code = 2204) 127 U/L 40-112 H AST (test code = 2218) 32 U/L 9-40 ALT (test code = 2219) 34 U/L 5-40 CBC W/AUTO DIFF WITH [id number] 02:27:39* Test Item Value Reference Range Interpretation [...] = 1065) 0.0 /100 WBC'S See_Comment [Automated [employer] ge] The system which generated this result [...] 0.00-0.10 ABS NUCLEATED RBCS (test code = 51194) 0.00 K/UL 0.00-0.11 COMPREHENSIVE METABOLIC [id number] 00:00:00* Test Item Value Reference Range Interpretation Comme nts GLUCOSE (test code = 2217) 99 MG/DL BUN (test code = 2208) 7 MG/DL CREATININE (test code = 2214) 0.67 MG/DL eGFR (2020 CKD-EPI) (test code = 11687) 121 ML/MIN/1.73 CALC BUN/CREAT (test code = [...] = 2219) 34 U/L Allen HernandezBALTAZAR, THIRD [id number] 00:00:00* Test Item Value Reference Range Interpretation Comme nts TSH, THIRD GENERATION (test code = 2821) 1.840 UIU/ML Allen HernandezCBC W/AUTO [id number] 00:00:00* Test Item Value Reference Range Interpretation [...] ABS NUCLEATED RBCS (test cod e = 37786) 0.00 K/UL Allen Guillory WwdedaL-[id number] 00:00:00* Test Item Value Reference Range Interpretation Comme nts D-DIMER (test code = 1405) <0.27 UG/MLFEU Allen HernandezIzphyeTD-[id number] 00:00:00* Test Item Value Reference Range Interpretation Comme nts NT-proBNP (test code = 03020) 114 PG/ML Allen HernandezCOMPREHENSIVE METABOLIC [id number] 00:00:00* Test Item Value Reference Range Interpretation Comme nts GLUCOSE (test code = 2217) 99 MG/DL BUN (test code = 2208) 7 MG/DL CREATININE (test code = 2214) 0.67 MG/DL eGFR (2020 CKD-EPI) (test code = 55259) 121 ML/MIN/1.73 CALC BUN/CREAT (test code = [...] (test code = 2219) 34 U/L Allen Guillory Marisa, THIRD [id number] 00:00:00* Test Item Value Reference Range Interpretation Comme nts TSH, THIRD GENERATION (test code = 2821) 1.840 UIU/ML Allen HernandezCBC W/AUTO [id number] 00:00:00* Test Item Value Reference Range Interpretation [...] ABS NUCLEATED RBCS (test cod e = 73145) 0.00 K/UL Allen HernandezWmkfubO-[id number] 00:00:00* Test Item Value Reference Range Interpretation Comme nts D-DIMER (test code = 1405) <0.27 UG/MLFEU Allen HernandezWwtbkpDQ-PTEYPF0522-53-01 00:00:00* Test Item Value Reference Range Interpretation Comme nts NT-proBNP (test code = 56709) 114 PG/ML Allen HernandezCOMPREHENSIVE METABOLIC [id number] 00:00:00* Test Item Value Reference Range Interpretation Comme nts GLUCOSE (test code = 2217) 99 MG/DL BUN (test code = 2208) 7 MG/DL CREATININE (test code = 2214) 0.67 MG/DL eGFR (2020 CKD-EPI) (test code = 43805) 121 ML/MIN/1.73 CALC BUN/CREAT (test code = 2235) 10 RATIO SODIUM (test code = 223) 138 MEQ/L POTASSIUM (test code = 2228) 4.5 MEQ/L CHLORIDE (test code = 2215) 102 MEQ/L CARBON DIOXIDE (test code = 2206) 24 MEQ/L CALCIUM (test code = 2209) 9.8 MG/DL PROTEIN, TOTAL (test code = 222) 6.9 G/DL ALBUMIN (test code = 2201) 4.3 G/DL CALC GLOBULIN (test code = 2240) 2.6 G/DL CALC A/G RATIO (test code = 2234) 1.7 RATIO BILIRUBIN, TOTAL (test code = 2207) 0.3 MG/DL ALKALINE PHOSPHATASE (test code = 220) 127 U/L AST (test code = 2218) 32 U/L ALT (test code = 2219) 34 U/L Allen HernandezTSH, THIRD [id number] 00:00:00* Test Item Value Reference Range Interpretation Comme [facility] TSH, THIRD GENERATION (test code = 2821) 1.840 UIU/ML Allen HernandezC W/AUTO [id number] 00:00:00* Test Item Value Reference Range Interpretation Comme [facility] WBC (test code = 1001) 7.5 K/UL [...] ABS NUCLEATED RBCS (test cod e = 75322) 0.00 K/UL Allen HernandezXyalkfD-[id number] 00:00:00* Test Item Value Reference Range Interpretation Comme nts D-DIMER (test code = 1405) <0.27 UG/MLFEU Allen Guillory BvoarhIT-[id number] 00:00:00* Test Item Value Reference Range Interpretation Comme nts NT-proBNP (test code = 39051) 114 PG/ML Allen Guillory DavidCOMPREHENSIVE METABOLIC [id number] 00:00:00* Test Item Value Reference Range Interpretation Comme nts GLUCOSE (test code = 2217) 99 MG/DL BUN (test code = 2208) 7 MG/DL CREATININE (test code = 2214) 0.67 MG/DL eGFR (2020 CKD-EPI) (test code = 74158) 121 ML/MIN/1.73 CALC BUN/CREAT (test code = [...] (test code = 2219) 34 U/L Allen Cunningham, THIRD [id number] 00:00:00* Test Item Value Reference Range Interpretation Comme nts TSH, THIRD GENERATION (test code = 2821) 1.840 UIU/ML Allen HernandezCBC W/AUTO [id number] 00:00:00* Test Item Value Reference Range Interpretation [...] ABS NUCLEATED RBCS (test cod e = 61149) 0.00 K/UL Allen HernandezFevjysX-[id number] 00:00:00* Test Item Value Reference Range Interpretation Comme nts D-DIMER (test code = 1405) <0.27 UG/MLFEU Allen HernandezMjqzmsJY-VIYEPE6488-58-01 00:00:00* Test Item Value Reference Range Interpretation Comme nts NT-proBNP (test code = 03064) 114 PG/ML Allen HernandezCOMPREHENSIVE METABOLIC [id number] 00:00:00* Test Item Value Reference Range Interpretation Comme nts GLUCOSE (test code = 2217) 99 MG/DL BUN (test code = 2208) 7 MG/DL CREATININE (test code = 2214) 0.67 MG/DL eGFR (2020 CKD-EPI) (test code = 79764) 121 ML/MIN/1.73 CALC BUN/CREAT (test code = [...] = 2219) 34 U/L Allen HernandezTSH, THIRD [id number] 00:00:00* Test Item Value Reference Range Interpretation Comme nts TSH, THIRD GENERATION (test code = 2821) 1.840 UIU/ML Allen HernandezCBC W/AUTO [id number] 00:00:00* Test Item Value Reference Range Interpretation [...] ABS NUCLEATED RBCS (test cod e = 08968) 0.00 K/UL Allen Guillory DlkyboH-[id number] 00:00:00* Test Item Value Reference Range Interpretation Comme nts D-DIMER (test code = 1405) <0.27 UG/MLFEU Allen Guillory NceqpjBK-[id number] 00:00:00* Test Item Value Reference Range Interpretation Comme nts NT-proBNP (test code = 21846) 114 PG/ML Allen Guillory [facility] URINALYSIS W/O SPECIFIC [id number] 20:17:00* Test Item Value Reference Range Interpretation [...] = 3257) N/A Negative - [facility]ati ve [facility] [id number] 20:16:00* Test Item Value Reference Range Interpretation Comme nts POCT PREG (test code = 1605) Positive On board controls acceptable with C Line (test code = 3574) Yes POCT PREG LOT # (test code = 3575) POCT PREG TEST DATE ( test code = 3576) [facility]AUTO [id number] 00:00:00* Test Item Value Reference Range Interpretation [...] HernandezGLUCOSE, 1 HR, GESTATIONAL SCREEN, 50 GM [id number] 00:00:00 * Test Item Value Reference Range Interpretation Comme nts GLUCOSE 1 HR POST 50 GM (georges t code = 2005) 96 MG/DL [facility] [id number] 00:00:00* Test Item Value Reference Range Interpretation [...] HernandezGLUCOSE, 1 HR, GESTATIONAL SCREEN, 50 GM [id number] 00:00:00 * Test Item Value Reference Range Interpretation Comme nts GLUCOSE 1 HR POST 50 GM (georges t code = 2005) 96 MG/DL Allen Guillory AustinCBC W/AUTO [id number] 00:00:00* Test Item Value Reference Range Interpretation [...] HernandezGLUCOSE, 1 HR, GESTATIONAL SCREEN, 50 GM [id number] 00:00:00 * Test Item Value Reference Range Interpretation Comme nts GLUCOSE 1 HR POST 50 GM (georges t code = 2005) 96 MG/DL Allen Guillory AustinCBC W/AUTO [id number] 00:00:00* Test Item Value Reference Range Interpretation [...] HernandezGLUCOSE, 1 HR, GESTATIONAL SCREEN, 50 GM [id number] 00:00:00 * Test Item Value Reference Range Interpretation Comme nts GLUCOSE 1 HR POST 50 GM (georges t code = 2005) 96 MG/DL Allen Guillory AustinCBC W/AUTO [id number] 00:00:00* Test Item Value Reference Range Interpretation [...] HernandezGLUCOSE, 1 HR, GESTATIONAL SCREEN, 50 GM [id number] 00:00:00 * Test Item Value Reference Range Interpretation Comme nts GLUCOSE 1 HR POST 50 GM (georges t code = 2005) 96 MG/DL Allen Guillory AustinCBC W/AUTO [id number] 00:00:00* Test Item Value Reference Range Interpretation [...] HernandezGLUCOSE, 1 HR, GESTATIONAL SCREEN, 50 GM [id number] 00:00:00 * Test Item Value Reference Range Interpretation Comme nts GLUCOSE 1 HR POST 50 GM (georges t code = 2006) 96 MG/DL Allen ButlerLTALBERTA, [id number] 00:00:00* Test Item Value Reference Range Interpretation Comme nts CULTURE, URINE (test code = 81172) SPECIMEN NUMBER: [id number] Allen Kim, [id number] 00:00:00* Test Item Value Reference Range Interpretation Comme nts CULTURE, URINE (test code = 30719) SPECIMEN NUMBER: [id number] Allen Kim, [id number] 00:00:00* Test Item Value Reference Range Interpretation Comme nts CULTURE, URINE (test code = 65347) SPECIMEN NUMBER: [id number] Allen HernandezCULTALBERTA, [id number] 00:00:00* Test Item Value Reference Range Interpretation Comme nts CULTURE, URINE (test code = 58235) SPECIMEN NUMBER: [id number] Allen ButlerLTALBERTA, [id number] 00:00:00* Test Item Value Reference Range Interpretation Comme nts CULTURE, URINE (test code = 09293) SPECIMEN NUMBER: [id number] Allen ButlerLTALBERTA, [id number] 00:00:00* Test Item Value Reference Range Interpretation Comme nts CULTURE, URINE (test code = 53151) SPECIMEN NUMBER: [id number] Allen HernandezDRUG ABUSE PANEL 10 WITH [id number] 00:00:00* Test Item Value Reference Range Interpretation [...] 3217) URINE OXYCODONE, URINE (test code = 85799) NEGATIVE Allen F AustinDRUG ABUSE PANEL 10 WITH [id number] 00:00:00* Test Item Value Reference Range Interpretation [...] 3217) URINE OXYCODONE, URINE (test code = 88094) NEGATIVE Allen F AustinDRUG ABUSE PANEL 10 WITH [id number] 00:00:00* Test Item Value Reference Range Interpretation [...] 3217) URINE OXYCODONE, URINE (test code = 58450) NEGATIVE Allen F AustinDRUG ABUSE PANEL 10 WITH [id number] 00:00:00* Test Item Value Reference Range Interpretation [...] 3217) URINE OXYCODONE, URINE (test code = 98062) NEGATIVE Allen F AustinDRUG ABUSE PANEL 10 WITH [id number] 00:00:00* Test Item Value Reference Range Interpretation [...] 3217) URINE OXYCODONE, URINE (test code = 45254) NEGATIVE Allen F AustinDRUG ABUSE PANEL 10 WITH [id number] 00:00:00* Test Item Value Reference Range Interpretation [...] 3217) URINE OXYCODONE, URINE (test code = 70368) NEGATIVE Allen F AustinDRUG ABUSE PANEL 10 WITH [id number] 00:00:00* Test Item Value Reference Range Interpretation [...] 3217) URINE OXYCODONE, URINE (test code = 42741) NEGATIVE Allen F AustinDRUG ABUSE PANEL 10 WITH [id number] 00:00:00* Test Item Value Reference Range Interpretation [...] 3217) URINE OXYCODONE, URINE (test code = 50202) NEGATIVE Allen F AustinDRUG ABUSE PANEL 10 WITH [id number] 00:00:00* Test Item Value Reference Range Interpretation [...] 3217) URINE OXYCODONE, URINE (test code = 40760) NEGATIVE Allen F AustinDRUG ABUSE PANEL 10 WITH [id number] 00:00:00* Test Item Value Reference Range Interpretation [...] 3217) URINE OXYCODONE, URINE (test code = 55875) NEGATIVE Allen Guillory AustinDRUG ABUSE PANEL 10 WITH [id number] 00:00:00* Test Item Value Reference Range Interpretation [...] 3217) URINE OXYCODONE, URINE (test code = 95611) NEGATIVE Allen Guillory AustinDRUG ABUSE PANEL 10 WITH [id number] 00:00:00* Test Item Value Reference Range Interpretation [...] 3217) URINE OXYCODONE, URINE (test code = 32671) NEGATIVE Allen ButlerLTALBERTA, [id number] 00:00:00* Test Item Value Reference Range Interpretation Comme nts CULTURE, URINE (test code = 38433) SPECIMEN NUMBER: [id number] Allen HernandezCULTALBERTA, [id number] 00:00:00* Test Item Value Reference Range Interpretation Comme nts CULTURE, URINE (test code = 03641) SPECIMEN NUMBER: [id number] Allen ButlerLTALBERTA, [id number] 00:00:00* Test Item Value Reference Range Interpretation Comme nts CULTURE, URINE (test code = 02431) SPECIMEN NUMBER: [id number] Allen Kim, [id number] 00:00:00* Test Item Value Reference Range Interpretation Comme nts CULTURE, URINE (test code = 46658) SPECIMEN NUMBER: [id number] Allen ButlerLTALBERTA, [id number] 00:00:00* Test Item Value Reference Range Interpretation Comme nts CULTURE, URINE (test code = 75511) SPECIMEN NUMBER: [id number] Allen Kim, [id number] 00:00:00* Test Item Value Reference Range Interpretation Comme nts CULTURE, URINE (test code = 04010) SPECIMEN NUMBER: [id number] Allen HernandezOBSTETRIC PANEL + [id number] 00:00:00* Test Item Value Reference Range Interpretation [...] IU/ML RUBELLA IgG INTERP (test code = 34591) REACTIVE HEPATITIS B SURF AG (test code = 2739) NON-REACTIVE RPR RESULT (test code = 3501) NON-REACTIVE RPR TITER (test code = 3500) NOT INDIC. TITER HIV 1/2 AB/AG RFLX CONF (test code = 3514) NON-REACTIVE Allen F AustinACID HGB [id number] 00:00:00* Test Item Value Reference Range Interpretation Comme nts HEMOGLOBIN A1 (test code = 2575) 97.1 % HEMOGLOBIN A2 (test code = 2576) 2.9 % HEMOGLOBIN F () (test c ode = 7822) 0.0 % HEMOGLOBIN S (test code = 2724) NONE % HEMOGLOBIN C (test code = 2726) NONE % ACID HEMOGLOBIN FINDINGS (te st code = 90433) NONE PATHOLOGIST'S INTERPRETATION (test code = 7937) (NOTE) Allen [id number] 00:00:00* Test Item Value Reference Range Interpretation Comme nts TSH (test code = 2821) 1.2 UIU/ML Aleln HernandezHEPATITIS C [id number] 00:00:00* Test Item Value Reference Range Interpretation Comme nts HEPATITIS C ANTIBODY (test c ode = 0852) NON-REACTIVE Allen HernandezOBSTETRIC PANEL + [id number] 00:00:00* Test Item Value Reference Range Interpretation [...] IU/ML RUBELLA IgG INTERP (test code = 83838) REACTIVE HEPATITIS B SURF AG (test code = 2739) NON-REACTIVE RPR RESULT (test code = 3501) NON-REACTIVE RPR TITER (test code = 3500) NOT INDIC. TITER HIV 1/2 AB/AG RFLX CONF (test code = 4934) NON-REACTIVE Allen HernandezACID HGB [id number] 00:00:00* Test Item Value Reference Range Interpretation Comme nts HEMOGLOBIN A1 (test code = 2575) 97.1 % HEMOGLOBIN A2 (test code = 2576) 2.9 % HEMOGLOBIN F () (test c ode = 2722) 0.0 % HEMOGLOBIN S (test code = 2724) NONE % HEMOGLOBIN C (test code = 2726) NONE % ACID HEMOGLOBIN FINDINGS (te st code = 59910) NONE PATHOLOGIST'S INTERPRETATION (test code = 2577) (NOTE) Allen [id number] 00:00:00* Test Item Value Reference Range Interpretation Comme nts TSH (test code = 2821) 1.2 UIU/ML Allen HernandezHEPATITIS C [id number] 00:00:00* Test Item Value Reference Range Interpretation Comme nts HEPATITIS C ANTIBODY (test c ode = 3734) NON-REACTIVE Allen HernandezOBSTETRIC PANEL + [id number] 00:00:00* Test Item Value Reference Range Interpretation [...] IU/ML RUBELLA IgG INTERP (test code = 33638) REACTIVE HEPATITIS B SURF AG (test code = 2739) NON-REACTIVE RPR RESULT (test code = 3501) NON-REACTIVE RPR TITER (test code = 3500) NOT INDIC. TITER HIV 1/2 AB/AG RFLX CONF (test code = 3514) NON-REACTIVE Allen HernandezACID HGB [id number] 00:00:00* Test Item Value Reference Range Interpretation Comme nts HEMOGLOBIN A1 (test code = 2575) 97.1 % HEMOGLOBIN A2 (test code = 2576) 2.9 % HEMOGLOBIN F () (test c ode = 2722) 0.0 % HEMOGLOBIN S (test code = 2724) NONE % HEMOGLOBIN C (test code = 2726) NONE % ACID HEMOGLOBIN FINDINGS (te st code = 73072) NONE PATHOLOGIST'S INTERPRETATION (test code = 2577) (NOTE) Allen [id number] 00:00:00* Test Item Value Reference Range Interpretation Comme nts TSH (test code = 2821) 1.2 UIU/ML Allen HernandezHEPATITIS C [id number] 00:00:00* Test Item Value Reference Range Interpretation Comme nts HEPATITIS C ANTIBODY (test c ode = 4622) NON-REACTIVE Allen HernandezOBSTETRIC PANEL + [id number] 00:00:00* Test Item Value Reference Range Interpretation [...] IU/ML RUBELLA IgG INTERP (test code = 07125) REACTIVE HEPATITIS B SURF AG (test code = 2739) NON-REACTIVE RPR RESULT (test code = 3501) NON-REACTIVE RPR TITER (test code = 3500) NOT INDIC. TITER HIV 1/2 AB/AG RFLX CONF (test code = 3514) NON-REACTIVE Allen HernandezACID HGB [id number] 00:00:00* Test Item Value Reference Range Interpretation Comme nts HEMOGLOBIN A1 (test code = 2575) 97.1 % HEMOGLOBIN A2 (test code = 2576) 2.9 % HEMOGLOBIN F () (test c ode = 2722) 0.0 % HEMOGLOBIN S (test code = 2724) NONE % HEMOGLOBIN C (test code = 2726) NONE % ACID HEMOGLOBIN FINDINGS (te st code = 45877) NONE PATHOLOGIST'S INTERPRETATION (test code = 9437) (NOTE) Allen [id number] 00:00:00* Test Item Value Reference Range Interpretation Comme nts TSH (test code = 2821) 1.2 UIU/ML Allen HernandezHEPATITIS C [id number] 00:00:00* Test Item Value Reference Range Interpretation Comme nts HEPATITIS C ANTIBODY (test c ode = 4645) NON-REACTIVE Allen HernandezOBSTETRIC PANEL + [id number] 00:00:00* Test Item Value Reference Range Interpretation [...] IU/ML RUBELLA IgG INTERP (test code = 99211) REACTIVE HEPATITIS B SURF AG (test code = 2739) NON-REACTIVE RPR RESULT (test code = 3501) NON-REACTIVE RPR TITER (test code = 3500) NOT INDIC. TITER HIV 1/2 AB/AG RFLX CONF (test code = 3514) NON-REACTIVE Allen HernandezACID HGB [id number] 00:00:00* Test Item Value Reference Range Interpretation Comme nts HEMOGLOBIN A1 (test code = 2575) 97.1 % HEMOGLOBIN A2 (test code = 2576) 2.9 % HEMOGLOBIN F () (test c ode = 2722) 0.0 % HEMOGLOBIN S (test code = 2724) NONE % HEMOGLOBIN C (test code = 2726) NONE % ACID HEMOGLOBIN FINDINGS (te st code = 92990) NONE PATHOLOGIST'S INTERPRETATION (test code = 3127) (NOTE) Allen [id number] 00:00:00* Test Item Value Reference Range Interpretation Comme nts TSH (test code = 2821) 1.2 UIU/ML Allen HernandezHEPATITIS C [id number] 00:00:00* Test Item Value Reference Range Interpretation Comme nts HEPATITIS C ANTIBODY (test c ode = 6940) NON-REACTIVE Allen HernandezOBSTETRIC PANEL + [id number] 00:00:00* Test Item Value Reference Range Interpretation [...] IU/ML RUBELLA IgG INTERP (test code = 44579) REACTIVE HEPATITIS B SURF AG (test code = 2739) NON-REACTIVE RPR RESULT (test code = 3501) NON-REACTIVE RPR TITER (test code = 3500) NOT INDIC. TITER HIV 1/2 AB/AG RFLX CONF (test code = 3514) NON-REACTIVE Allen HernandezACID HGB [id number] 00:00:00* Test Item Value Reference Range Interpretation Comme nts HEMOGLOBIN A1 (test code = 2575) 97.1 % HEMOGLOBIN A2 (test code = 2576) 2.9 % HEMOGLOBIN F () (test c ode = 2722) 0.0 % HEMOGLOBIN S (test code = 2724) NONE % HEMOGLOBIN C (test code = 2726) NONE % ACID HEMOGLOBIN FINDINGS (te st code = 06425) NONE PATHOLOGIST'S INTERPRETATION (test code = 2577) (NOTE) Allen HernandezGglqokRNZ3622-11-87 00:00:00* Test Item Value Reference Range Interpretation Comme nts TSH (test code = 2821) 1.2 UIU/ML Allen HernandezHEPATITIS C [id number] 00:00:00* Test Item Value Reference Range Interpretation Comme nts HEPATITIS C ANTIBODY (test c ode = 4688) NON-REACTIVE Allen HernandezPAP TEST, THINPREP, [id number] 00:00:00* Test Item Value Reference Range Interpretation Comme nts SOURCE: (test code = 8001) A) Cervical/Endocervical SLIDES: (test code = 8011) 1 LMP: (test code = 8021) 01/09/2016 SPECIMEN ADEQUACY: (test code = 59693) (NOTE) INTERPRETATION: (test code = 87187) NO EPITHELIAL ABNORMALITY SEE BELOW MILLER HEAD: (test code = 8101) [place], CT(ASCP) LOCATION: (test code = 42983) (NOTE) CPT: (test code = 8140) (NOTE) Allen HernandezPAP TEST, THINPREP, [id number] 00:00:00* Test Item Value Reference Range Interpretation Comme nts SOURCE: (test code = 8001) A) Cervical/Endocervical SLIDES: (test code = 8011) 1 LMP: (test code = 8021) 01/09/2016 SPECIMEN ADEQUACY: (test code = 30846) (NOTE) INTERPRETATION: (test code = 55162) NO EPITHELIAL ABNORMALITY SEE BELOW MILLER HEAD: (test code = 8101) [facility] LOCATION: (test code = 96151) (NOTE) CPT: (test code = 8140) (NOTE) Allen RodríguezP TEST, THINPREP, [id number] 00:00:00* Test Item Value Reference Range Interpretation Comme nts SOURCE: (test code = 8001) A) Cervical/Endocervical SLIDES: (test code = 8011) 1 LMP: (test code = 8021) 01/09/2016 SPECIMEN ADEQUACY: (test code = 84038) (NOTE) INTERPRETATION: (test code = 66482) NO EPITHELIAL ABNORMALITY SEE BELOW MILLER HEAD: (test code = 8101) [facility]: (test code = 88582) (NOTE) CPT: (test code = 8140) (NOTE) Allen HernandezPAP TEST, THINPREP, [id number] 00:00:00* Test Item Value Reference Range Interpretation Comme nts SOURCE: (test code = 8001) A) Cervical/Endocervical SLIDES: (test code = 8011) 1 LMP: (test code = 8021) 01/09/2016 SPECIMEN ADEQUACY: (test code = 28548) (NOTE) INTERPRETATION: (test code = 78719) NO EPITHELIAL ABNORMALITY SEE BELOW MILLER HEAD: (test code = 8101) [facility](ASCP) LOCATION: (test code = 42468) (NOTE) CPT: (test code = 8140) (NOTE) Allen RodríguezP TEST, THINPREP, [id number] 00:00:00* Test Item Value Reference Range Interpretation Comme nts SOURCE: (test code = 8001) A) Cervical/Endocervical SLIDES: (test code = 8011) 1 LMP: (test code = 8021) 01/09/2016 SPECIMEN ADEQUACY: (test code = 14162) (NOTE) INTERPRETATION: (test code = 50881) NO EPITHELIAL ABNORMALITY SEE BELOW MILLER HEAD: (test code = 8101) [facility] LOCATION: (test code = 33345) (NOTE) CPT: (test code = 8140) (NOTE) Allen HernandezPAP TEST, THINPREP, [id number] 00:00:00* Test Item Value Reference Range Interpretation Comme nts SOURCE: (test code = 8001) A) Cervical/Endocervical SLIDES: (test code = 8011) 1 LMP: (test code = 8021) 01/09/2016 SPECIMEN ADEQUACY: (test code = 95754) (NOTE) INTERPRETATION: (test code = 33764) NO EPITHELIAL ABNORMALITY SEE BELOW MILLER HEAD: (test code = 8101) FRANDY Almazan(ASCP) LOCATION: (test code = 72975) (NOTE) CPT: (test code = 8140) (NOTE) Allen Hernandez Notes Date/Time Note Provider Source Allen Hernandez Formerly [facility]2025-02-11 00:00:[address] [facility]2025-01-24 00:00:[address] [facility]2024-06-20 00:00:[address] [facility]2024-06-06 00:00:[address] [facility]2024-05-21 00:00:00 [facility]
[2025-03-15] MEDS ORDERED: FAMOTIDINE 20 MG/2 ML VIAL IV ONE (10:19)
[2025-03-15] MEDS ORDERED: NA CHLORIDE 0.9% 1,000 ML ONE (10:19)
[2025-03-15] MEDS ORDERED: NA CHLORIDE 0.9% 50 ML ONE ×2 (10:19→13:14)
[2025-03-15] MEDS ORDERED: HALOPERIDOL LACT 5 MG/ML INJ ONE (10:19)
[2025-03-15 10:39] LABS: Absolute Basophils 0.1 K/uL (0-0.5); Absolute Lymphocytes (CBC) 2.2 K/uL (0.7-4.9); Absolute Monocytes 0.6 K/uL (0.1-1.3); Absolute Neutrophil 9.2 K/uL (1.8-8.0); Basophils % 0.5 % (0-1.3); Eosinophils % 0.3 % (0-4.4); Hematocrit 41.7 % (36.0-45.0); Hemoglobin 14.2 g/dL (12.0-15.0); MCHC 34.2 g/dL (32.0-36.0); MCV 81.8 fL (80-100); MPV 8.9 fL (7.6-11.3); Monocytes % 5.1 % (3.3-12.3); Neutrophils % 76.1 % (41.7-73.7); Platelets 311 thou/uL (152-406); RBC Red Blood Cell Count 5.09 M/uL (3.86-4.86); Red Cell Distribution Width 13.9 % (12.1-15.2)
[2025-03-15 10:40] LABS: Specific Gravity 1.026 (1.005-1.030)
[2025-03-15 10:41] LABS: Specific Gravity 1.026 (1.005-1.030); Sqamous Epithelial <5 /HPF (None Seen); Urine Bacteria None Seen /HPF (<20); Urine Bilirubin NEGATIVE (Negative); Urine Blood Trace (Negative); Urine Clarity Extremely Turbid (Clear); Urine Color Yellow (Yellow); Urine Culture Reflex Order NOT NEEDED; Urine Glucose NEGATIVE (Negative); Urine Ketones 1+ (Negative); Urine Microscopic Reflex YN ORDER UMIC; Urine Mucus Slight /HPF (None Seen); Urine Nitrite NEGATIVE (Negative); Urine Protein 1+ (Negative); Urine Urobilinogen 1+ (Normal); Urine WBC <5 /HPF (<5)
[2025-03-15 11:00] LABS: Albumin 4.6 g/dL (3.4-5.0); Albumin/Globulin Ratio 1.2 (1.1-1.8); Anion Gap 7.1 mEq/L (5.0-15.0); Magnesium 2.3 mg/dL (1.6-2.4); Potassium 3.1 mEq/L (3.5-5.1); Protein, Total 8.6 g/dL (6.4-8.2)
[2025-03-15] MEDS ORDERED: POTASSIUM CL SA 10 MEQ TAB PO ONE (11:22)
--- NOTE | 2025-03-15 13:00 | ER ---
Nurse's Notes [facility] Name: Abigail Arias Age: 29 yrs Sex: Female : 1995 Arrival Date: 03/15/2025 Time: 09:57 Bed 8 Private MD: Diagnosis: Hypokalemia;Cyclical vomiting, not intractable Presentation: 03/15 10:06 Chief complaint: Patient states: N/V, chills and body aches that began Wednesday. Pt ss reports she recently had her linda bladder removed and is scheduled at this beginning of March to have a hernia repair by Dr. Saleh. Pt reports that she also feels anxious when she starts vomiting. Coronavirus screen: Client denies travel out of the [place] in the last 14 days. Ebola Screen: Patient denies exposure to infectious person. Patient denies travel to an Ebola-affected area in the 21 days before illness onset. Initial Sepsis Screen: Does the patient meet any 2 criteria? No. Patient's initial sepsis screen is negative. Does the patient have a suspected source of infection? No. Patient's initial sepsis screen is negative. Risk Assessment: Do you want to hurt yourself or someone else? Patient reports no desire to harm self or others. Onset of symptoms was March 12, 2025. 10:06 Method Of Arrival: Ambulatory ss 10:06 Acuity: TRENT 3 ss 10:10 Note Pt reports she has not used street percocets in almost a year until she took one ss on . 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 - Infectious Disease History:: Denies. - Social history:: Smoking status: Patient reports the use of cigarette tobacco products, smokes one-half pack cigarettes per day, Patient uses street drugs, "Street Percocets.", Patient uses street drugs, marijuana. Screenin:[facility] ED Fall Risk Assessment (Adult) History of falling in the last 3 months, db including since admission No falls in past 3 months (0 pts) Confusion or Disorientation No (0 pts) Intoxicated or Sedated No (0 pts) Impaired Gait No (0 pts) Mobility Assist Device Used No (0 pt) Altered Elimination No (0 pt) Score/Fall Risk Level 0 - 2 = Low Risk Oriented to surroundings, Maintained a safe environment. Abuse screen: Denies threats or abuse. Denies injuries from another. Nutritional screening: No deficits noted. Tuberculosis screening: No symptoms or risk factors identified. Assessment: 13:37 Reassessment: Patient appears in no apparent distress at this time. Patient and/or db family updated on plan of care and expected duration. Pain level reassessed. Patient is alert, oriented x 3, equal unlabored respirations, skin warm/dry/pink. Reassessment: Patient states feeling better. Patient states symptoms have improved. General: Appears in no apparent distress. comfortable, Behavior is calm, cooperative. Pain: Denies pain. Neuro: Level of Consciousness is awake, alert, obeys commands, Oriented to person, place, time, situation. Respiratory: Airway is patent Respiratory effort is even, unlabored, Respiratory pattern is regular, symmetrical. GI: Bowel sounds present X 4 quads. Abd is soft. Vital Signs: 10:06 BP 124 / 75; Pulse 59; Resp 16; Pulse Ox 100% on R/A; Weight 88.45 kg; Height 5 ft. 4 ss in. ; Pain 10/10; 12:00 BP 143 / 79; Pulse 49; Resp 18; Pulse Ox 100% on R/A; db 12:30 BP 148 / 92; Pulse 58; Resp 16; Pulse Ox 99% on R/A; db 13:31 BP 131 / 82; Pulse 80; Resp 16; Pulse Ox 99% ; db 10:06 Body Mass Index 33.47 (88.45 kg, 162.56 cm) ss 10:06 Pain Scale: Adult ss ED Course: 10:00 Patient arrived in ED. al6 10:08 Triage completed. ss 10:10 Shari Moon MD is Attending Physician. sw6 10:10 Arm band placed on right wrist. ss 10:16 Beth Rushing, JOBY is Primary Nurse. db 10:34 Magnesium Sent. bc6 10:34 CBC with Diff Sent. bc6 10:34 CMP Sent. bc6 10:34 Lipase Sent. bc6 10:34 Initial lab(s) drawn, by me, sent to lab. Inserted saline lock: 20 gauge in right bc6 antecubital area, using aseptic technique. Blood collected. Flushed with 10 mL NS. 13:38 Patient has correct armband on for positive identification. Bed in low position. Call db light in reach. Side rails up X 1. Provided Education on: DISCHARGE AND FOLLOWUP. Pulse ox on. NIBP on. Warm blanket given. Pillow given. 13:38 No provider procedures requiring assistance completed. IV discontinued, intact, db bleeding controlled, No redness/swelling at site. Administered Medications: 11:47 Drug: Haloperidol IVP 2.5 mg/50 mL 2.5 mg IVP once; Place patient on a awake overnight monitor bp Route: IVP; Site: right antecubital; 13:33 Follow up: Response: No adverse reaction db 11:47 Drug: Famotidine IVP 20 mg IVP once; dilute with 10 mL 0.9% NaCl; give over 2 minutes bp Route: IVP; Site: right antecubital; 13:33 Follow up: Response: No adverse reaction db 11:47 Drug: Potassium Chloride PO 40 mEq PO once Route: PO; bp 13:33 Follow up: Response: No adverse reaction db 11:48 Drug: NS 0.9% IV 1000 ml IV at 1 bolus Per protocol; to be given as a bolus over 60 bp minutes Route: IV; Rate: 1 bolus; Site: right antecubital; 13:33 Follow up: Response: No adverse reaction; IV Status: Completed infusion; IV Intake: db 1000ml 13:00 Drug: metoCLOPramide IVP 10 mg IVP once; over 1 to 2 minutes Route: IVP; Site: right db antecubital; 13:33 Follow up: Response: No adverse reaction db Medication: 13:38 VIS not applicable for this client. db Intake: 13:33 IV: 1000ml; Total: 1000ml. db Outcome: 12:59 Discharge ordered by MD. chatman 13:38 Discharged to home ambulatory, db 13:38 Condition: stable 13:38 Discharge instructions given to patient, family, Instructed on discharge instructions, follow up and referral plans. Prescriptions given X 1, 13:39 Patient left the ED. db Signatures: Michelle Lujan RN RN Imtiaz Saleem RN RN bp Beth Rushing RN RN db Kassandra Wei bc6 Shari Moon MD MD sw6 Shoshana Horne6 Corrections: (The following items were deleted from the chart) 10:11 10:06 Chief complaint: Patient states: N/V that began Wednesday. Pt reports she recently ss had her linda bladder removed and is scheduled at this beginning of March to have a hernia repair by Dr. Saleh. Pt reports that she also feels anxious when she starts vomiting. ss
--- NOTE | 2025-03-15 13:00 | EDPHYS ---
Physician Documentation [facility] Name: Abigail Arias Age: 29 yrs Sex: Female : 1995 Arrival Date: 03/15/2025 Time: 09:57 Bed 8 Private MD: SANG Physician Shari Moon HPI: 03/15 10:16 This 29 yrs old Female presents to ER via Ambulatory with complaints of sw6 Abdominal Pain, Chest Pain, Breathing Difficulty, Vomiting. 10:16 The patient presents from home for evaluation for epigastric abdominal pain as well as sw6 nausea and vomiting has been coming going since Wednesday. Today is . No bad food exposure. No recent trips or travel or antibiotics. No sick contacts. She does use marijuana and last smoked today. She last vomited this morning. She reports her last menstrual period was February 24. She denies being . She had her gallbladder removed in December of this year. No medication taken prior to arrival. No history of high blood pressure or diabetes. She also complains of bodyaches. No cough, congestion or fevers. Here for evaluation. 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 - Infectious Disease History:: Denies. - Social history:: Smoking status: Patient reports the use of cigarette tobacco products, smokes one-half pack cigarettes per day, Patient uses street drugs, "Street Percocets.", Patient uses street drugs, marijuana. ROS: 10:16 Constitutional: Negative for fever, chills, and weight loss, Cardiovascular: Negative sw6 for chest pain, palpitations, and edema, Respiratory: Negative for shortness of breath, cough, wheezing, and pleuritic chest pain, 10:16 Abdomen/GI: Positive for abdominal pain, nausea and vomiting, Negative for diarrhea, 10:16 All other systems are negative, Exam: 10:16 Constitutional: This is a well developed, well nourished patient who is awake, alert, sw6 and in no acute distress. Chest/axilla: Normal chest wall appearance and motion. Nontender with no deformity. No lesions are appreciated. Cardiovascular: Regular rate and rhythm with a normal S1 and S2. No gallops, murmurs, or rubs. Normal PMI, no JVD. No pulse deficits. Respiratory: Lungs have equal breath sounds bilaterally, clear to auscultation and percussion. No rales, rhonchi or wheezes noted. No increased work of breathing, no retractions or nasal flaring. Abdomen/GI: Soft, non-tender, with normal bowel sounds. No distension or tympany. No guarding or rebound. No evidence of tenderness throughout. 10:16 Back: No spinal tenderness. No costovertebral tenderness. Full range of motion. Neuro: Awake and alert, GCS 15, oriented to person, place, time, and situation. Cranial nerves II-XII grossly intact. Motor strength 5/5 in all extremities. Sensory grossly intact. Cerebellar exam normal. Normal gait. Psych: Awake, alert, with orientation to person, place and time. Behavior, mood, and affect are within normal limits. 10:16 Constitutional: The patient appears Smells of marijuana Vital Signs: 10:06 BP 124 / 75; Pulse 59; Resp 16; Pulse Ox 100% on R/A; Weight 88.45 kg; Height 5 ft. 4 ss in. ; Pain 10/10; 12:00 BP 143 / 79; Pulse 49; Resp 18; Pulse Ox 100% on R/A; db 12:30 BP 148 / 92; Pulse 58; Resp 16; Pulse Ox 99% on R/A; db 13:31 BP 131 / 82; Pulse 80; Resp 16; Pulse Ox 99% ; db 10:06 Body Mass Index 33.47 (88.45 kg, 162.56 cm) ss 10:06 Pain Scale: Adult ss MDM: 10:16 Differential diagnosis: Gastroenteritis, pancreatitis, cyclic vomiting syndrome, sw6 . Data reviewed: vital signs, nurses notes. 10:31 Medical Screening Exam initiated 12:58 ED course: The patient is doing well in the ER. Her laboratory studies showed a low sw6 potassium level which was replaced here in the ER. She was given a p.o. challenge and able to swallow by mouth without difficulty. She remained stable here in the ER and is okay for discharge home with PCP follow-up. Advised patient to stop using marijuana.. 03/15 10:16 Order name: CBC with Diff; Complete Time: 11:17 03/15 11:17 Interpretation: Within normal limits. 03/15 10:16 Order name: CMP; Complete Time: 11:17 03/15 11:17 Interpretation: Abnormal: Hypokalemia. 03/15 10:16 Order name: Lipase; Complete Time: 11:17 03/15 11:17 Interpretation: Within normal limits. 03/15 10:16 Order name: Test, Urine; Complete Time: 10:42 03/15 10:42 Interpretation: Within normal limits: Not . 03/15 10:16 Order name: Urinalysis w/ reflexes; Complete Time: 10:42 03/15 10:42 Interpretation: Within normal limits. 03/15 10:16 Order name: Magnesium; Complete Time: 11:17 03/15 11:17 Interpretation: Within normal limits. 03/15 10:16 Order name: IV Saline Lock; Complete Time: 10:34 03/15 10:16 Order name: Labs collected and sent; Complete Time: 10:34 Administered Medications: 11:47 Drug: Haloperidol IVP 2.5 mg/50 mL 2.5 mg IVP once; Place patient on a driller machine bp Route: IVP; Site: right antecubital; 13:33 Follow up: Response: No adverse reaction db 11:47 Drug: Famotidine IVP 20 mg IVP once; dilute with 10 mL 0.9% NaCl; give over 2 minutes bp Route: IVP; Site: right antecubital; 13:33 Follow up: Response: No adverse reaction db 11:47 Drug: Potassium Chloride PO 40 mEq PO once Route: PO; bp 13:33 Follow up: Response: No adverse reaction db 11:48 Drug: NS 0.9% IV 1000 ml IV at 1 bolus Per protocol; to be given as a bolus over 60 bp minutes Route: IV; Rate: 1 bolus; Site: right antecubital; 13:33 Follow up: Response: No adverse reaction; IV Status: Completed infusion; IV Intake: db 1000ml 13:00 Drug: metoCLOPramide IVP 10 mg IVP once; over 1 to 2 minutes Route: IVP; Site: right db antecubital; 13:33 Follow up: Response: No adverse reaction db Disposition Summary: 03/15/25 12:59 Discharge Ordered Notes: Location: Home 6 Problem: new sw6 Symptoms: have improved sw6 Condition: Stable sw6 Diagnosis - Hypokalemia sw6 - Cyclical vomiting, not intractable sw6 Discharge Instructions: - Discharge Summary Sheet sw6 - Nausea and Vomiting, Adult, Zoeq-ju-Ayan sw6 - Cyclic Vomiting Syndrome, Adult sw6 Forms: - Medication Reconciliation Form sw6 - Antibiotic Education sw6 - Prescription Opioid Use sw6 - Patient Portal Instructions sw6 - Leadership Thank You Letter 6 Prescriptions: - Zofran 4 mg Oral Tablet - take 1 tablet ORAL route every 12 hours As needed; 20 tablet; Refills: 0, sw6 Product Selection Permitted Signatures: Dispatcher [employer] EDMichelle Rodriguez, RN RN ss Imtiaz Saleem RN RN bp Beth Rushing RN RN Shari Morgan MD MD 6 Corrections: (The following items were deleted from the chart) 10:16 10:16 CBC+H.LAB.BRZ ordered. EDMS EDMS 10:16 10:16 COMPREHENSIVE METABOLIC PANEL+C.LAB.BRZ ordered. EDMS EDMS 10:16 10:16 LIPASE+C.LAB.BRZ ordered. EDMS EDMS 10:16 10:16 Test, Urine+UC.LAB.BRZ ordered. EDMS EDMS 10:16 10:16 Urinalysis+U.LAB.BRZ ordered. EDMS EDMS 10:16 10:16 MAGNESIUM+C.LAB.BRZ ordered. EDMS EDMS
[2025-03-15] MEDS ORDERED: METOCLOPRAMIDE 10 MG/2mL INJ ONE (13:14)
[2025-03-15 14:07] VITALS: O2SAT 99
[2025-03-15 14:08] VITALS: BP 131/82
== END 2025-03-15 13:39 | disposition home or self-care (01) ==
LOC: ER 09:57
DX: E87.6 Hypokalemia (principal); R10.13 Epigastric pain; F17.210 Nicotine dependence, cigarettes, uncomplicated
CPT/HCPCS: 96361; 85025; 81001; 36415; 83735; 81025; 83690; 80053; 96375; 96374; 99284; J1630; J2765; J7030

== ENCOUNTER 2025-03-23 09:24 | Day surgery (SDC) | payer OTHER ==
--- NOTE | 2025-03-22 11:59 | EKG ---
Test Date: 2025-03-20 Test Time: 14:27:03 Prosthetics Assistant: HARMAN MEASUREMENT RESULTS: Intervals: Rate: 57 MA: 132 QRSD: 92 QT: 420 QTc: 408 [place]: P: -12 MA: 132 QRS: 47 T: 54 INTERPRETIVE STATEMENTS: Sinus bradycardia Septal infarct, age undetermined Abnormal ECG Compared to ECG 09/24/2015 17:00:29 Myocardial infarct finding now present Sinus rhythm no longer present Electronically Signed On 03-22-25 11:55:57 CDT by Fidel Ames
[2025-03-23] MEDS: Ringers Lactate 1,000 ML IV ONE (10:17)
[2025-03-23] MEDS ORDERED: ONDANSETRON 4 MG/2 ML VIAL ONE (10:53)
[2025-03-23] MEDS ORDERED: MIDAZOLAM HCL 2 MG/2 ML INJ ONE (10:53)
[2025-03-23] MEDS ORDERED: propofoL 200 MG/20 ML VIAL IV ONE (10:53)
[2025-03-23] MEDS ORDERED: LIDOCAINE 2% MPF 5 ML VIAL ONE ×2 (10:53→11:59)
[2025-03-23] MEDS ORDERED: FENTANYL CITR 100 MCG/2 ML ONE (10:53)
[2025-03-23] MEDS ORDERED: ROCURONIUM 50 MG/5 ML VIAL IV ONE (10:53)
[2025-03-23] MEDS: CEFAZOLIN SODIUM 2 GM/VIAL ONE (11:00)
[2025-03-23] MEDS ORDERED: dexAMETHasone 10 MG/ML VIAL ONE (11:11)
[2025-03-23] MEDS: LIDOCAINE HCL/EPINEPHRINE 20 ML MDV ONE (11:18)
[2025-03-23] MEDS ORDERED: GLYCOPYRROLATE 0.2 MG/ML SYR ONE ×2 (11:40→11:48)
[2025-03-23] MEDS ORDERED: NEOSTIGMINE 1 MG/ML -10 ML VIAL ONE (11:48)
[2025-03-23] MEDS ORDERED: KETOROLAC 30 MG/ML INJ ONE (11:49)
--- NOTE | 2025-03-23 11:54 | P.OP ---
Preoperative diagnosis: Umbilical Hernia Postoperative diagnosis: Umbilical Hernia Primary procedure: Laparoscopic Umbilical Hernia Repair with mesh Anesthesia: GETA +Local Estimated blood loss: <5cc Specimen: None Findings: Incarcerated adipose in umbilical hernia Complications: None Implants: Bard ventralite ST 11.4cm round mesh, sorbafix x 45 tacks Transferred to: Recovery Room Condition: Good
[2025-03-23] MEDS: HYDROMORPHONE HCL 1 MG/ML INJ ONE (12:20)
[2025-03-23] MEDS: FENTANYL CITR 100 MCG/2 ML ONE (12:31)
--- NOTE | 2025-03-23 12:55 | OP ---
Date of Procedure: 03/23/2025 Surgeon: Jerry Saleh MD, Preoperative Diagnosis: Umbilical hernia. Postoperative Diagnosis: Umbilical hernia. Procedure: Laparoscopic umbilical hernia repair with mesh. Anesthesia: General endotracheal plus local, 1% lidocaine with epinephrine. Estimated Blood Loss: Less than 5 cc. Specimen: None. Findings: Incarcerated adipose tissue and umbilical hernia approximately 1.5 cm in size. Complications: None. Implants: Bard Ventralight ST mesh with Echo Positioning System. 11.4 cm mesh utilized. SorbaFix A bsorbable Fixation tacks x45. Disposition: The patient was transferred to recovery room in good condition. Procedure In Detail: After informed consent was obtained, patient was brought to the operating room, prepped and draped in the usual sterile fashion. After adequate anesthesia was achieved, anestheti zed the area in the left upper quadrant down to subcutaneous tissues. A 5 mm 0-degree optical trocar was introduced into the abdomen without incident or complication. Insufflation was obtained to 15 m mHg at this time. There was no injury to vital structures upon entry into the abdomen. Additional t rocar was placed in left lower abdomen. This was similarly anesthetized and sharply incised. A 12 m m trocar was placed under direct vision without incident or complication. At this point, I proceeded to use the LigaSure device to take down the incarcerated omentum from an umbilical hernia, which was evident on the previous surgery as an incidental finding, when she had her cholecystectomy in the [facility]. After this was reduced, the hernia was appreciated at this point. The hernia defect was then cl osed using an Endo Stitch with 0 V-Loc suture. Good approximation of the edges imbricated the hernia sac at this point. I then deployed 11.[address] mesh with Echo Positioning System th rough a separate stab incision in the supraumbilical position. The mesh was then deployed and secure d to the anterior bowel wall using a double crown type orientation of SorbaFix Absorbable fixation ta cks. The balloon deployment system was found to be intact on the back table. Ultimately, a total 4 5 absorbable fixation tacks were used to secure the mesh to the anterior bowel wall with good apposit ion. No hemostasis measures were required. The abdomen was desufflated under direct visualization w ithout incident or complication. The 12 mm trocar site was then closed using a SaturninoNishant sutur e passer under desufflation pressure without incident or complication. Good approximation of tissues . The abdomen was desufflated under direct vision completely. The remaining trocars were removed. All skin edges were then copiously irrigated and closed with a 4-0 Monocryl in a running fashion. De rmabond was placed over the top. The patient tolerated the procedure well without incident or compli cation, transferred to PACU in good condition. All counts were correct at the end of the case. MARCIAL/REGL Voice ID: [id number] Report ID: [id number]
[2025-03-23 14:03] VITALS: O2SAT 100
[2025-03-23 14:21] VITALS: BP 129/68; TEMP 97.3
[2025-03-23 19:16] LABS: Urine Specific Gravity/Preg 1.015 (1.005-1.030)
== END 2025-03-23 14:20 | disposition home or self-care (01) ==
LOC: OR 09:24
PROVIDERS: ATTEND Surgery
PROC: 0WUF4JZ Supplement Abdominal Wall with Synthetic Substitute, Percutaneous Endoscopic Approach (ICD-10-PCS; principal; 2025-03-23 11:00)
DX: K42.9 Umbilical hernia without obstruction or gangrene (principal); Z90.49 Acquired absence of other specified parts of digestive tract; K81.1 Chronic cholecystitis
CPT/HCPCS: 93005; 81025; 49591; J2704; J2710; J2003 ×2; J2250; J3010 ×2; J1100; J1171; J2405; J7120; C1781

== ENCOUNTER 2025-08-08 10:23 | Emergency (ER) | payer OTHER ==
--- OUTSIDE RECORDS SUMMARY | 2025-08-08 10:32 | XMS REPORT | Continuity of Care Document ---
Author Name Unknown Address [address] [facility] [address] [place] [address] [facility] Address [address] [facility]. [address] [place] [address] Care Team Providers Care Transmitter Chief Name Role Phone PCP, PATIENT DOES NOT HAVE A Primary Care Physic costa Unavailable RADIOLOGY Attending Clinician Unavailable DAVID SHI Attending Clinician Unavail able Nurse, Adc Pob Immunization Attending Clinician Unavailable David Shi DO Attending Clinician GIANNA MARQUEZ Attending Clinician Unavailable [facility] Attending Clinician UnavailGianna Gomez MD Attending Clinician [phone], Adc Lab Attending Clinician Unavailable Doctor Unassigned, [place] Attending Clinician U navailable GIANNA MARQUEZ Admitting Clinician Unavailable NATAILIA SO Admitting Clinician Unavailable Payers Payer Name Policy Type Policy Number Effective Date Expirati on Date Source MEDICARE PART A \[id number]\ [id number] 2013 00:00:00 MEDICAID [facility] [id number] 2017 00:00:00 [employer] MEDICARE ADVANTAGE HMO [id number] 2022 00:00:00 [facility] [id number] 00:00:00 Problems Condition Name Condition Details Condition Category Status Onset Date Resolution Date Last Treatment Date Treating Clinician Comments Source Previous section Previous section Disease Active 04-15 00:00: 00 [facility] Single liveborn, born in hospital, delivered by section Single liveborn, born in hospital, delivered by section Disease Active 0 5- 00:00: 00 [facility] Supervisio n of high-risk with insufficie nt care in third trimester Supervisio n of high-risk with insufficie nt care in third trimester Disease Active 2019-11 2- 00:00: 00 [facility] 39 weeks gestation of 39 weeks gestation of Disease Active 2019-11- 00:00: 00 [facility] High-risk in second trimester High-risk in second trimester Disease Active 2019-11 00:00: 00 [facility] 17 weeks gestation of 17 weeks gestation of Disease Active 2019-11 00:00: 00 [facility] Previous section complicati ng Previous section complicati ng Disease Resolve d 2016-11 00:00: 00 2021-04-15 00:00:00 2021-04-15 07:49:00 [facility] Patient's noncomplia nce with other medical treatment and regimen Patient's noncomplia nce with other medical treatment and regimen Disease Resolve d 4-02 00:00: 00 2021-02-21 00:00:00 2021-02-21 11:06:35 [facility] 39 weeks gestation of 39 weeks gestation of Disease Resolve d 2016-11 00:00: 00 2020-11-12 00:00:00 2020-11-12 14:44:07 [facility] 34 weeks gestation of 34 weeks gestation of Disease Resolve d 2016-11 00:00: 00 2020-11-12 00:00:00 2020-11-12 14:44:14 [facility] Pilonidal cyst with abscess Pilonidal cyst with abscess Disease Resolve d 2016-11 00:00: 00 2020-11-12 00:00:00 2020-11-12 14:44:12 [facility] Arrested active phase of labor Arrested active phase of labor Disease Resolve d 2015-11 00:00: 2017-10-18 00:00:00 2017-10-18 20:10:35 [facility] Liveborn by Liveborn by Disease Resolve d 2015-11 00:00: 00 2017-10-18 00:00:00 2017-10-18 20:10:35 [facility] Postmaturi ty , 40-42 weeks gestation Postmaturi ty , 40-42 weeks gestation Disease Resolve d 2015-11 00:00: 00 2017-10-18 00:00:00 2017-10-18 20:10:35 [facility] Premature uterine contractio ns Premature uterine contractio ns Disease Resolve d 2015-11 00:00: 00 2017-10-18 00:00:00 2017-10-18 20:10:35 [facility] Allergies, Adverse Reactions, Alerts Allergy Name Allergy Type Status Severity Reaction(s) Onset Date Inactive Date Treating Clinician Comments Source none (Not Checked) Propensi ty to adverse reaction to drug Active 04-27 00:00: 00 Allen Hernandez NO KNOWN ALLERGIE S Drug Class Active [facility] Social History Social Habit Start Date Stop Date Quantity Comments Source ASSERTION 2020-07-28 00:00:00 Not [facility] History of tobacco use 2010-10-22 00:00:00 Cigarette Smoker [facility] Exposure to SARS-CoV-2 (event) Not sure [facility] Alcoholic beverage intake 2021-04-16 00:00:00 2021-04-16 00:00:00 Ex-drinker (finding) [facility] History of Social function 2021-04-16 00:00:00 2021-04-16 00:00:00 [facility] Tobacco use and exposure 2021-02-21 00:00:00 2021-02-21 00:00:00 Smokeless tobacco non-user [facility] Alcohol intake 2020-11-12 00:00:00 2020-11-12 00:00:00 Ex-drinker (finding) [facility] Tobacco Comment 2020-11-12 00:00:00 2020-11-12 00:00:00 2 ciggs a day [facility] Sex assigned at 1995 00:00:00 1995 00:00:00 [facility] Smoking Status Start Date Stop Date Source Ex-smoker 2021-02-21 00:00:00 2021-02-21 00:00:00 U [facility] Current every day smoker 2020-11-12 00:00:00 [facility] Medications Ordered Medication Name Filled Medication Name Start Date Stop Date Current Medication? Ordering Clinician Indication Dosage Frequency Signature (SIG) Comments Components Source citalopram 10 mg tablet 04-16 00:00: 00 Yes 1mg Allen Hernandez Abilify 10 mg tablet 04-16 00:00: 00 Yes 1mg Allen Hernandez buprenorphi ne 4 mg-naloxone 1 mg sublingual film 03-27 00:00: 00 Yes 1mg Allen Hernandez buprenorphi ne 4 mg-naloxone 1 mg sublingual film 03-19 00:00: 00 Yes 1mg Allen Hernandez Cholestyram ine Light 4 gram oral powder 03-08 00:00: 00 Yes 4gram Allen Hernandez ondansetron 8 mg disintegrat ing tablet 03-08 00:00: 00 Yes 1mg Allen Hernandez citalopram 10 mg tablet - 00:00: 00 Yes 1mg Allen Hernandez bupropion HCl 100 mg tablet - 00:00: 00 Yes 1mg Allen Hernandez Abilify 10 mg tablet - 00:00: 00 Yes 1mg Allen Hernandez Carafate 1 gram tablet -24 00:00: 00 Yes 1gram Allen Hernandez omeprazole 20 mg capsule,del ayed release -24 00:00: 00 Yes 1mg Allen Hernandez Wellbutrin SR 150 mg tablet, 12 hr sustained-r elease 2023-11 0-14 00:00: 00 Yes 1mg Allen Hernandez Lamictal 25 mg tablet 2023-11 0-14 00:00: 00 Yes 2mg Allen Hernandez bupropion HCl SR 200 mg tablet,12 hr sustained-r elease 2023-1 0-14 00:00: 00 Yes 1mg Allen Hernandez Abilify 10 mg tablet 2023-1 0-14 00:00: 00 Yes 1mg Allen Hernandez Lamictal 25 mg tablet 2023-0 9-30 00:00: 00 Yes 2mg Allen Hernandez Abilify 10 mg tablet 2023-0 9-30 00:00: 00 Yes 1mg Allen Hernandez Wellbutrin SR 150 mg tablet, 12 hr sustained-r elease 2023-0 9-19 00:00: 00 Yes 1mg Allen Hernandez Abilify 15 mg tablet 2023-0 9-19 00:00: 00 Yes 5mg Allen Hernandez Lamictal 25 mg tablet 2023-0 9-19 00:00: 00 Yes 1mg Allen Hernandez [...] Allen Hernandez propranolol 10 mg tablet 2023-0 7-16 00:00: 00 Yes 1mg Allen Hernandez buspirone 7.5 mg tablet 2023-0 7-16 00:00: 00 Yes 1mg Allen Hernandez Abilify 5 mg tablet 2023-0 7-02 00:00: 00 Yes 1mg Allen Hernandez bupropion HCl SR 150 mg tablet,12 hr sustained-r elease 2023-0 7- 00:00: 00 Yes 1mg Allen Hernandez buspirone 5 mg tablet 2023-0 7-02 00:00: 00 Yes 1mg Allen Hernandez hydroxyzine HCl 50 mg tablet 2023-0 7- 00:00: 00 Yes 1mg Allen Hernandez Abilify 5 mg tablet 2023-0 6-18 00:00: 00 Yes 1mg Allen Hernandez bupropion HCl SR 150 mg tablet,12 hr sustained-r elease 4-0 6-18 00:00: 00 Yes 1mg Allen Hernandez hydroxyzine HCl 50 mg tablet 2023-0 6-18 00:00: 00 Yes 1mg Allen Hernandez buspirone 5 mg tablet 2023-0 -18 00:00: 00 Yes 1mg Allen Hernandez meloxicam 15 mg tablet 2023-0 -06 00:00: 00 Yes 1mg Allen Hernandez Abilify 5 mg tablet 2023-0 - 00:00: 00 Yes 1mg Allen Hernandez bupropion HCl SR 150 mg tablet,12 hr sustained-r elease 4-0 -06 00:00: 00 Yes 1mg Allen Hernandez buspirone 5 mg tablet 2023-0 -06 00:00: 00 Yes 1mg Allen Hernandez hydroxyzine HCl 50 mg tablet 2023-0 -06 00:00: 00 Yes 1mg Allen Hernandez furosemide [...] 1mg Allen Hernandez BUPROP 12 SR 100MG 4-0 5- 00:00: 00 Yes Allen Hernandez HYDROXYZ HCL 50MG 2023-0 5- 00:00: 00 Yes 50 Allen Hernandez Abilify 5 mg tablet 2023-0 - 00:00: 00 Yes 1mg Allen Hernandez bupropion HCl SR 100 mg tablet,12 hr sustained-r elease 4-0 4- 00:00: 00 Yes 1mg Allen Hernandez hydroxyzine HCl 50 mg tablet 2023-0 4-29 00:00: 00 Yes 1mg Allen Hernandez TAKE 1 TAB BY MOUTH EVERY SIX HOURS NEEDED FOR ANXIETY 25 00:00: 00 Yes 50 Allen Hernandez TAKE 1 TABLET DAILY. 03-16 00:00: 00 Yes 5 Allen Hernandez TAKE 1 TABLET DAILY. 4- 00:00: 00 Yes 100 Allen Hernandez Zoloft 50 mg tablet - 00:00: 00 Yes 1mg Allen Hernandez Abilify 5 mg tablet 03-01 00:00: 00 Yes 1mg Allen Hernandez hydroxyzine HCl 50 mg tablet 03-01 00:00: 00 Yes 1mg Allen Hernandez SERTRALINE 50MG 03-01 00:00: 00 Yes Allen Hernandez FLUOXETIN(P ) 20MG 02-22 00:00: 00 Yes Allen Hernandez TAKE 1 TABLET DAILY. 02-13 00:00: 00 Yes 25 Allen Hernandez SERTRALINE 25MG 25 00:00: 00 Yes Allen Hernandez TAKE 1 TABLET DAILY. 25 00:00: 00 04-04 00:00 :00 No 5 Allen Hernandez TAKE 1 CAPSULE BY MOUTH DAILY (FOR A TOTAL OF 30 MG) 25 00:00: 00 04-04 00:00 :00 No 20 Allen Hernandez TAKE 1 TAB BY MOUTH EVERY SIX HOURS NEEDED FOR ANXIETY 02-13 00:00: 00 04-04 00:00 :00 No 50 Allen Hernandez FLUOXETIN(P ) 40MG 01-24 00:00: 00 Yes Allen Hernandez TAKE 1 CAPSULE BY MOUTH ONCE DAILY - 00:00: 00 04-04 00:00 :00 No 40 Allen Hernnadez TAKE 1 TAB BY MOUTH EVERY SIX HOURS NEEDED FOR ANXIETY - 00:00: 00 04-04 00:00 :00 No 50 Allen Hernandez TAKE 1 TABLET DAILY. - 00:00: 00 04-04 00:00 :00 No 5 Allen Hernandez ARIPIPRAZOL E 5MG 2- 00:00: 00 Yes Allen Hernandez TAKE 1 TABLET DAILY. 2 00:00: 00 04-04 00:00 :00 No 5 Allen Hernandez TAKE 1 CAPSULE BY MOUTH DAILY (FOR A TOTAL OF 30 MG) - 00:00: 00 04-04 00:00 :00 No 10 Allen Hernandez TAKE 1 TAB BY MOUTH EVERY SIX HOURS NEEDED FOR ANXIETY 01-17 00:00: 00 04-04 00:00 :00 No 50 Allen Hernandez TAKE 1 CAPSULE BY MOUTH DAILY (FOR A TOTAL OF 30 MG) 01-17 00:00: 00 04-04 00:00 :00 No 20 Allen Hernandez TAKE 1 TAB BY MOUTH EVERY SIX HOURS NEEDED FOR ANXIETY 2 00:00: 00 04-04 00:00 :00 No 50 [...] Allen Hernandez TAKE 1 CAPSULE EVERY MORNING. - 00:00: 00 04-04 00:00 :00 No 20 Allen Hernandez TAKE 1 TABLET DAILY. - 00:00: 00 04-04 00:00 :00 No 5 Allen Hernandez TAKE 1 TAB BY MOUTH EVERY SIX HOURS NEEDED FOR ANXIETY - 00:00: 00 04-04 00:00 :00 No 50 Allen Hernandez ARIPIPRAZOL E 5MG 1-09 00:00: 00 Yes Allen Hernandez FLUOXETIN(P ) 20MG 1-09 00:00: 00 Yes Allen Hernandez TAKE 1 TABLET DAILY. 11-30 00:00: 00 04-04 00:00 :00 No 5 Allen Hernandez TAKE 1 CAPSULE EVERY MORNING. 11-30 00:00: 00 04-04 00:00 :00 No 20 Allen Hernandez TAKE ONE TABLET TWICE A DAILY NEEDED FOR ANXIETY 11-30 00:00: 00 04-04 00:00 :00 No 20 Allen Hernandez PROPRANOLOL 20MG 2022-11 00:00: 00 04-04 00:00 :00 No Allen Hernandez ARIPIPRAZOL E 2MG 2022-11 00:00: 00 Yes 2000 Allen Hernandez TAKE ONE TABLET TWICE DAILY NEEDED [...] TABLET TWICE A DAILY NEEDED FOR ANXIETY 07-07 00:00: 00 04-04 00:00 :00 No 20 Allen Hernandez TAKE ONE TABLET DAILY AFTER A LARGE MEAL 07-07 00:00: 00 04-04 00:00 :00 No 20 Allen Hernandez TAKE ONE TABLET TWICE A DAILY NEEDED FOR ANXIETY -16 00:00: 00 04-04 00:00 :00 No 20 Allen Hernandez TAKE 1 TABLET AT BEDTIME. 5-16 00:00: 00 04-04 00:00 :00 No 15 Allen Hernandez TAKE 1 TABLET BY MOUTH 3 TIMES DAILY BEFORE MEALS 3-04 00:00: 00 04-04 00:00 :00 No 10 Allen Hernandez TAKE 1 TABLET 3 TIMES DAILY BEFORE MEALS. 2-07 00:00: 00 04-04 00:00 :00 No 10 Allen Hernandez Dose Unknown 2021-11 0-24 00:00: 00 Yes Allen Hernandez &lt 8-03 00:00: 00 Yes Allen Hernandez NORTREL 0.5/35 (28) 0.5/35 6-21 00:00: 00 Yes Allen Hernandez Dose Unknown 3-28 00:00: 00 Yes Allen Hernandez Dose Unknown 3-28 00:00: 00 Yes Allen Hernandez Dose Unknown 3-28 00:00: 00 Yes Allen Hernandez TAKE 1 TABLET BY MOUTH EVERY DAY 3-28 00:00: 00 Yes Allen Hernandez norethindro ne (contracept mynor) 0.35 mg tablet 7-19 00:00: 00 Yes 1mg Allen Hernandez HYDROcodone -acetaminop hen 5-325 mg tablet 04-17 00:00: 00 Yes [id number] 1{tbl} Take 1 tablet by mouth every 6 (six) hours as needed for Pain (scale 7-10). Indication s: acute pain [facility] ibuprofen 800 mg tablet 04-17 00:00: 00 Yes [id number] 800mg Take 1 tablet by mouth every 8 (eight) hours. [facility] docusate calcium 240 mg capsule 04-17 00:00: 00 Yes [id number] 240mg Take 1 capsule by mouth once daily as needed for Constipati on. [facility] ferrous sulfate 325 mg (65 mg iron) tablet 04-17 00:00: 00 Yes [id number] 325mg Take 1 tablet by mouth 2 (two) times daily. [facility] multivitami n ( VITAMIN) tablet 2019-11 00:00: 00 Yes 1{tbl} Take 1 tablet by mouth daily. [facility] multivitami n ( VITAMIN) tablet 2019-11 00:00: 00 Yes 1{tbl} Take 1 tablet by mouth daily. [facility] meloxicam 15 mg tablet 01-12 00:00: 00 Yes 1mg Allen Hernandez gabapentin 100 mg capsule 01-12 00:00: 00 Yes 1mg Allen Hernandez ferrous sulfate 325 mg (65 mg iron) tablet 2016-11 00:00: 00 11-12 00:00 :00 No 325mg Take 1 tablet by mouth 2 (two) times daily. [facility] docusate calcium 240 mg capsule 2016-11 00:00: 00 11-12 00:00 :00 No 240mg Take 1 capsule by mouth once daily as needed for Constipati on. [facility] HYDROcodone -acetaminop hen 5-325 mg tablet 2016-11 00:00: 00 11-12 00:00 :00 No 1{tbl} Take 1 tablet by mouth every 6 (six) hours as needed for Pain (scale 4-6) or Pain (scale 7-10) (Pain scale above 4). [facility] ibuprofen 600 mg tablet 2016-11 00:00: 00 11-12 00:00 :00 No 600mg Take 1 tablet by mouth every 6 (six) hours as needed for Pain (scale 1-3) or Pain (scale 4-6) (Pain). Take with food or milk. [facility] vitamin w/FA tablet 2016-11 00:00: 00 11-12 00:00 :00 No 1{tbl} Take 1 tablet by mouth daily. [facility] promethazin e 25 mg tablet 04-13 00:00: 00 Yes 51mg Allen Hernandez ferrous sulfate 325 mg (65 mg iron) tablet,melani molinad release 04-13 00:00: 00 Yes 1(65 mg iron) Allen Hernandez promethazin e 25 mg tablet 06-23 00:00: 00 Yes 1mg Allen Hernandez promethazin e 12.5 mg tablet 03-24 00:00: 00 Yes 1mg Allen Hernandez Immunizations Ordered Immunization Name Filled Immunization Name Date Status Comments Source SARS-COV-2 COVID-19 PFIZER VACCINE 2021-07-17 00:00:00 Completed [facility] SARS-COV-2 COVID-19 PFIZER VACCINE 2021-07-17 00:00:00 Completed [facility] Influenza Virus Vaccine Quad .5 mL IM 6+ MO 2020-11-12 00:00:00 Completed [facility] Influenza Virus Vaccine Quad .5 mL IM 6+ MO 2020-11-12 00:00:00 Completed [facility] Influenza Virus Vaccine Quad .5 mL IM 6+ MO 2020-11-12 00:00:00 Completed [facility] Influenza Virus Vaccine Quad .5 mL IM 6+ MO 2020-11-12 00:00:00 Completed [facility] Influenza Virus Vaccine Quad .5 mL IM 6+ MO 2020-11-12 00:00:00 Completed [facility] Influenza Virus Vaccine Quad .5 mL IM 6+ MO (FLUZONE/FLULAVAL/F LUARIX) 2020-11-12 00:00:00 Completed [facility] Influenza Virus Vaccine Quad IM 3+ YRS 2017-11-21 00:00:00 Completed [facility] Influenza Virus Vaccine Quad IM 3+ YRS 2017-11-21 00:00:00 Completed [facility] Influenza Virus Vaccine Quad IM 3+ YRS 2017-11-21 00:00:00 Completed [facility] Influenza Virus Vaccine Quad IM 3+ YRS 2017-11-21 00:00:00 Completed [facility] Influenza Virus Vaccine Quad IM 3+ YRS 2017-11-21 00:00:00 Completed [facility] Influenza Virus Vaccine Quad IM 3+ YRS 2017-11-21 00:00:00 Completed Influenza Virus Vaccine Quad IM 3+ YRS 2016-10-22 00:00:00 Completed [facility] Influenza Virus Vaccine Quad IM 3+ YRS 2016-10-22 00:00:00 Completed [facility] Influenza Virus Vaccine Quad IM 3+ YRS 2016-10-22 00:00:00 Completed [facility] Influenza Virus Vaccine Quad IM 3+ YRS 2016-10-22 00:00:00 Completed [facility] Influenza Virus Vaccine Quad IM 3+ YRS 2016-10-22 00:00:00 Completed [facility] Influenza Virus Vaccine Quad IM 3+ YRS 2016-10-22 00:00:00 Completed [facility] Vital Signs Vital Name Observation Time Observation Value Comments S godfrey Systolic blood pressure 2020-11-12 20:13:00 137 mm[Hg] [place] [facility] Diastolic blood pressure 2020-11-12 20:13:00 80 mm[Hg] [place] [facility] Heart rate 2020-11-12 20:13:00 82 /min [facility] Body temperature 2020-11-12 20:13:00 37 Naina [facility] Respiratory rate 2020-11-12 20:13:00 18 /min [facility] Body height 2020-11-12 20:13:[address] [facility] Body weight 2020-11-12 20:13:[address] [facility] BMI 2020-11-12 20:13:00 29.74 kg/m2 [facility] BP Systolic 2025-06-28 15:33:00 128 mm[Hg] Step hen F David BP Diastolic 2025-06-28 15:33:00 84 mm[Hg] Vinnie phen F David Weight Measured 2025-06-28 15:33:00 189.00 pounds Allen F David Height Measured 2025-06-28 15:33:00 64.00 inches Allen F David Body Temperature 2025-06-28 15:33:00 98.80 degrees Allen F David Heart Rate 2025-06-28 15:33:00 76.00 /min Rachel en F David Respiratory Rate 2025-06-28 15:33:00 18.00 /min Allen F David BP Systolic 2025-05-03 14:42:00 141 mm[Hg] Step hen F David BP Diastolic 2025-05-03 14:42:00 85 mm[Hg] Vinnie phen F David Weight Measured 2025-05-03 14:42:00 185.60 pounds Allen F David Height Measured 2025-05-03 14:42:00 64.00 inches Allen F David Body Temperature 2025-05-03 14:42:00 98.00 degrees Allen F David Heart Rate 2025-05-03 14:42:00 72.00 /min Rachel en F David Respiratory Rate 2025-05-03 14:42:00 17.00 /min Allen F David BP Systolic 2025-03-19 14:54:00 119 mm[Hg] Step hen F David BP Diastolic 2025-03-19 14:54:00 85 mm[Hg] Vinnie phen F David Weight Measured 2025-03-19 14:54:00 179.20 pounds Allen F David Height Measured 2025-03-19 14:54:00 64.00 inches Allen F David Body Temperature 2025-03-19 14:54:00 98.20 degrees Allen F David Heart Rate 2025-03-19 14:54:00 74.00 /min Rachel en F David Respiratory Rate 2025-03-19 14:54:00 18.00 /min Allen F David BP Systolic 2025-03-16 13:42:00 125 mm[Hg] Step hen F David BP Diastolic 2025-03-16 13:42:00 83 mm[Hg] Vinnie phen F David Weight Measured 2025-03-16 13:42:00 179.00 pounds Allen F David Height Measured 2025-03-16 13:42:00 64.00 inches Allen F David Body Temperature 2025-03-16 13:42:00 97.60 degrees Allen F David Heart Rate 2025-03-16 13:42:00 74.00 /min Rachel en F David Respiratory Rate 2025-03-16 13:42:00 18.00 /min Allen F David BP Systolic 2025-03-08 11:00:00 121 mm[Hg] Step [...] F David Respiratory Rate 2019-11-17 15:03:00 Allen F David BP Systolic 2017-12-14 14:18:00 123 mm[Hg] Step hen F David BP Diastolic 2017-12-14 14:18:00 72 mm[Hg] Vinnie phen F David Weight Measured 2017-12-14 14:18:00 193.20 pounds Allen F David Height Measured 2017-12-14 14:18:00 64.00 inches Allen F David Body Temperature 2017-12-14 14:18:00 98.90 degrees Allen F David Heart Rate 2017-12-14 14:18:00 94.00 /min Rachel en F David Respiratory Rate 2017-12-14 14:18:00 16.00 /min Allen Hernandez Procedures Procedure Date / Time Performed Performing Clinicia n Source MR BRAIN WO CONTRAST 2025-06-13 19:28:43 Requisition, Paper [facility] 91385 Ekg W/ At Least 12 Leads W/ I r 2025-03-08 00:00:00 Allen Hernandez SARS-COV-2 COVID-19 VACCINE,0.3ML,IM (PFIZER) 2021-07-17 19:34:04 Doctor Unassigned, [place] [facility] FLU VACC ([id number]), 6+ MONTHS, IM, QUAD 2020-11-12 20:51:59 AdumGianna [facility] NOTICE OF BILLING PRACTICES FOR MEDICARE PATIENTS 2020-11-12 06:01:00 Doctor Unassigned, [place] [facility] POCT TEST 2020-11-12 00:00:00 AdGianna schmitt [facility] POCT URINALYSIS W/O SPECIFIC GRAVITY 2020-11-12 00:00:00 AdGianna schmitt [facility] Encounters Start Date/Time End Date/Time Encounter Type Admission Type Attending [facility] Care Facility Care Department Encounter ID Source 2021-09-21 20:35:56 Outpatient P [facility] [id number] [facility] 2025-07-12 14:10:52 2025-07-12 14:10:[address] [facility] [id number] Allen Hernandez 2025-06-28 15:25:04 2025-06-28 15:25:[address] [facility] [id number] Allen Hernandez 2025-06-28 00:00:00 2025-06-28 00:00:00 Outpatient Visit SFA [id number] Allen Hernandez 2025-06-13 12:55:10 2025-06-13 23:59:00 Hospital Encounter R [facility] [id number] [facility] 2025-05-03 14:44:02 2025-05-03 14:44:02 Outpatient SFA [facility] [id number] Allen Hernandez 2025-05-03 00:00:00 2025-05-03 00:00:00 Outpatient Visit SFA [id number] Allen Hernandez 2025-04-16 11:40:32 2025-04-16 11:40:32 Outpatient SFA SFA [id number] Allen Hernandez 2025-04-02 10:34:44 2025-04-02 10:34:44 Outpatient SFA SFA [id number] Allen Hernandez 2025-03-19 14:43:55 2025-03-19 14:43:55 Outpatient SFA SFA [id number] Allen Hernandez 2025-03-16 13:23:03 2025-03-16 13:23:03 Outpatient SFA SFA [id number] Allen Guillory David 2025-03-16 00:00:00 2025-03-16 00:00:00 Outpatient Visit SFA [id number] Allen Hernandez 2025-03-08 10:52:41 2025-03-08 10:52:41 Outpatient SFA SFA [id number] Allen Guillory David 2025-03-08 00:00:00 2025-03-08 00:00:00 Outpatient Visit SFA [id number] Allen Hernandez 2025-01-02 10:49:28 2025-01-02 10:49:28 Outpatient SFA SFA 1 Allen Guillory David 2025-01-02 00:00:00 2025-01-02 00:00:00 Outpatient Visit SFA [id number] Allen Guillory David 2024-12-18 14:23:37 2024-12-18 14:23:37 Outpatient SFA SFA [id number] Allen Hernandez 2024-12-15 13:29:41 2024-12-15 13:29:41 Outpatient SFA SFA [id number] Allen Hernandez 2024-12-15 00:00:00 2024-12-15 00:00:00 Outpatient Visit SFA [id number] Allen Hernandez 2024-09-04 16:43:36 2024-09-04 16:43:36 Outpatient SFA S[facility] [id number] Allen Hernandez 2024-07-27 13:08:00 2024-07-27 13:08:00 Outpatient SFA SFA [id number] Allen Hernandez 2024-07-26 08:40:48 2024-07-26 08:40:48 Outpatient SFA SFA [id number] Allen Guillory David 2024-05-11 16:29:11 2024-05-11 16:29:11 Outpatient SFA SFA [id number] Allen Hernandez 2024-05-11 00:00:00 2024-05-11 00:00:00 Outpatient Visit SFA [id number] Allen Hernandez 2024-04-27 08:50:48 2024-04-27 08:50:48 Outpatient SFA SFA [id number] Allen Guillory David 2024-04-27 00:00:00 2024-04-27 00:00:00 Outpatient Visit SFA [id number] Allen Guillory David 2024-04-21 13:58:57 2024-04-21 13:58:57 Outpatient SFA SFA [id number] Allen Guillory David 2024-04-11 10:42:00 2024-04-11 10:42:00 Outpatient SFA SFA [id number] Allen Guillory David 2024-04-11 00:00:00 2024-04-11 00:00:00 Outpatient Visit SFA [id number] Allen Hernandez 2024-03-29 13:22:27 2024-03-29 13:22:27 Outpatient SFA SFA [id number] Allen Hernandez 2024-03-16 15:38:08 2024-03-16 15:38:08 Outpatient SFA SFA [id number] Allen Guillory [place] 2024-03-01 15:21:47 2024-03-01 15:21:47 Outpatient SFA SFA [id number] Allen Guillory [place] 2024-02-14 14:06:58 2024-02-14 14:06:58 Outpatient SFA SFA [id number] Allen Guillory David 2024-01-24 15:07:05 2024-01-24 15:07:05 Outpatient SFA SFA [id number] Allen Guillory David 2023-12-27 15:36:58 2023-12-27 15:36:58 Outpatient SFA SFA 0205 Allen Guillory [place] 2023-12-13 14:14:53 2023-12-13 14:14:53 Outpatient SFA SFA 0122 Allen Guillory [place] 2023-09-02 08:27:12 2023-09-02 08:27:12 Outpatient SFA SFA 1012 Allen Guillory David 2023-07-07 17:54:17 2023-07-07 17:54:17 Outpatient SFA SFA 0816 Allen Guillory [place] 2021-08-07 13:10:00 2021-08-07 13:10:00 Outpatient DAVID NINO [facility] [id number] [facility] 2021-07-17 15:10:00 2021-07-17 15:10:00 Outpatient DAVID NINO [facility] [id number] [facility] 2021-07-17 14:22:04 2021-07-17 14:22:11 Imm/Inj Visit Nurse, Michelle Pob Immunizatio David Garcia [facility] [id number] [facility] 2021-04-14 07:45:00 2021-04-14 07:45:00 Outpatient R ADGIANNA SCHMITT [facility] [id number] [facility] 2021-04-10 13:30:00 2021-04-10 13:30:00 Outpatient R ADUM GIANNA [facility] [id number] [facility] 2021-04-04 13:45:00 2021-04-04 13:45:00 [id number] 2021-03-28 13:45:00 2021-03-28 13:45:00 Outpatient R ADUM [facility] [id number] [facility] 2021-03-25 14:40:00 2021-03-25 14:40:00 Outpatient R CARSON VITAL [facility] [id number] [facility] 2021-03-21 10:45:00 2021-03-21 10:45:00 Outpatient R ADUM GIANNA [facility] [id number] [facility] 2021-03-07 13:45:00 2021-03-07 13:45:00 Outpatient R ADUM [facility] [id number] [facility] 2021-02-21 10:00:00 2021-02-21 10:00:00 Outpatient R ADUM GIANNA [facility] [id number] [facility] 2021-01-15 14:00:00 2021-01-15 14:00:00 Outpatient R ADUM GIANNA [facility] [id number] [facility] 2021-01-03 13:00:00 2021-01-03 13:00:00 Outpatient P [facility] [id number] [facility] 2020-12-18 14:30:00 2020-12-18 14:30:00 Outpatient R ADUM [facility] [id number] [facility] 2020-12-13 10:00:00 2020-12-13 10:00:00 Outpatient P [facility] [id number] [facility] 2020-12-10 11:30:00 2020-12-10 11:30:00 Outpatient R ADGIANNA SCHMITT [facility] [id number] [facility] 2020-11-29 00:00:00 2020-11-29 00:00:00 Telephone Adum, Gianna May [facility] [id number] [id number] [id number] [facility] 2020-11-13 11:31:50 2020-11-13 11:46:50 Crm Analyst Visit 2, Adc Lab AdGianna schmitt [facility] 1..114 350.1.13.10 [id number] [id number] [facility] 2020-11-13 11:30:00 2020-11-13 11:30:00 Outpatient R [facility] [id number] [facility] 2020-11-12 14:03:08 2020-11-12 15:11:24 Initial Visit AdGianna schmitt [facility] [id number] [id number] [id number] [id number] [facility] 2020-11-12 13:30:00 2020-11-12 13:30:00 Outpatient R JIMMY GIANNA [facility] [id number] [facility] 2020-11-12 00:00:00 2020-11-12 00:00:00 Orders Only Doctor Unassigned, [place] [facility] 1.114 [id number] [id number] [id number] [facility] 2020-10-15 14:30:00 2020-10-15 14:30:00 Outpatient GIANNA ANDRADE [facility] [id number] [facility] 2020-09-10 13:30:00 2020-09-10 13:30:00 Outpatient GIANNA ANDRADE [facility] [id number] [facility] 2020-09-05 13:30:00 2020-09-05 13:30:00 Outpatient R GIANNA MARQUEZ [facility] [id number] [facility] Results Test Description Test Time Test Comments Results Resul t Comments Source MR Brain wo contrast 2025-05-23 3 19:44:29 EXAM: MR BRAIN WO CONTRAST HISTORY: 29 years-old Female; Provided indication: Tic disorder. TECHNIQUE: Multiplanar and multisequence MRI imaging of the brain wasobtained without contrast. COMPARISON: ?None FINDINGS: The ventricles and cerebral sulci are normal in caliber and configuration.No midline shift, hydrocephalus or pathological extra-axial fluidcollection is present. The basal cisterns are unremarkable. No restricted diffusion is present to suggest acute infarct. The lemus-whitedifferenti ation is preserved. No abnormal gradient blooming. The T2 flow voids for the major intracranial vessels are unremarkable. Noabnormal fluid signal is present in the mastoid air cells. Left maxillarysinus mucous retention cysts are present with mild pansinus mucosalthickening. [facility] Allen HernandezCOMPREHENSIVE METABOLIC [id number] 00:00:00* Test Item Value Reference Range Interpretation Comme nts GLUCOSE (test code = 2345-7) 82 mg/dL UREA NITROGEN (BUN) (test code = 3094-0) 6 mg/dL CREATININE (test code = 2160-0) 0.52 mg/dL EGFR (test code = 35798-3) 127 mL/min/1.73m2 BUN/CREATININE RATIO (test code = 3097-3) 12 (calc) SODIUM (test code = 2951-2) 140 mmol/L POTASSIUM (test code = 2823-3) 4.5 mmol/L CHLORIDE (test code = 2075-0) 104 mmol/L CARBON DIOXIDE (test code = 2028-9) 29 mmol/L CALCIUM (test code = 50461-1) 9.6 mg/dL PROTEIN, TOTAL (test code = 2885-2) 7.2 g/dL ALBUMIN (test code = 1751-7) 4.8 g/dL GLOBULIN (test code = 82183-7) 2.4 g/dL(calc) ALBUMIN/GLOBULIN RATIO (test code = 1759-0) 2.0 (calc) BILIRUBIN, TOTAL (test code = 1974-) 0.4 mg/dL ALKALINE PHOSPHATASE (test code = 6768-6) 108 U/L AST (test code = 1920-8) 23 U/L ALT (test code = 1742-6) 24 U/L Allen Guillory DavidCOMPREHENSIVE METABOLIC [id number] 00:00:00* Test Item Value Reference Range Interpretation Comme nts GLUCOSE (test code = 2345-7) 82 mg/dL UREA NITROGEN (BUN) (test code = 3094-0) 6 mg/dL CREATININE (test code = 2160-0) 0.52 mg/dL EGFR (test code = 82933-6) 127 mL/min/1.73m2 BUN/CREATININE RATIO (test code = 3097-3) 12 (calc) SODIUM (test code = 2951-2) 140 mmol/L POTASSIUM (test code = 2823-3) 4.5 mmol/L CHLORIDE (test code = 2075-0) 104 mmol/L CARBON DIOXIDE (test code = 2027-9) 29 mmol/L CALCIUM (test code = 98896-7) 9.6 mg/dL PROTEIN, TOTAL (test code = 2885-2) 7.2 g/dL ALBUMIN (test code = 1751-7) 4.8 g/dL GLOBULIN (test code = 23379-8) 2.4 g/dL(calc) ALBUMIN/GLOBULIN RATIO (test code = 1759-0) 2.0 (calc) BILIRUBIN, TOTAL (test code = 1975-2) 0.4 mg/dL ALKALINE PHOSPHATASE (test code = 6768-6) 108 U/L AST (test code = 1920-8) 23 U/L ALT (test code = 1742-6) 24 U/L Allen Guillory GczifjL-[id number] 14:59:26* Test Item Value Reference Range Interpretation Comme nts D-DIMER (test code = 1405) <0.27 UG/ML FEU <=0.49 NOTE: Provided reference range is established for evaluation of Deep Venous Thrombosis/Pulmonary Embolus (DVT/PE). Results below cutoff value of <=0.49 UG/ML FEU have a high negative predictive value forDVT/PE. No reference range is established for disseminatedintra-vasc ular coagulation (DIC). TSH, THIRD [id number] 08:12:01* Test Item Value Reference Range Interpretation Comme [facility] TSH, THIRD GENERATION (test code = 2821) 1.840 UIU/ML 0.400-4.100 [id number] 06:31:23* Test Item Value Reference Range Interpretation Comme [facility] NT-proBNP (test code = 40603) 114 PG/ML SEE BELOW If NT-ProBNP is less than 300 PG/ML, heart failure is unlikely for allages. Age.................Heart Failure Likely <50 Years...........>=450 PG/ML 50-75 Years.........>=900 PG/ML > 75 Years..........>=1800 PG/ML Methodology: [employer] Immunoassay UNLESS OTHERWISE INDICATED, ALL TESTING PERFORMED AT [facility] [address] [place] [address] TRAVEL NURSE: LAURENT SANDRA M.D. CLIA NUMBER [id number] [facility] [place]. [id number] COMPREHENSIVE METABOLIC [id number] 05:38:02* Test Item Value Reference Range Interpretation Comme [facility] GLUCOSE (test code = 2217) 99 MG/DL 70-99 BUN (test code = 2208) 7 MG/DL 6-20 CREATININE (test code = 2214) 0.67 MG/DL 0.60-1.30 eGFR (2020 CKD-EPI) (test code = 65304) 121 ML/MIN/1.73 >60 CALC BUN/CREAT (test code = 2235) 10 RATIO 6-28 SODIUM (test code = 223) 138 MEQ/L 133-146 POTASSIUM (test code = 2228) 4.5 MEQ/L 3.5-5.4 CHLORIDE (test code = 2215) 102 MEQ/L 95-107 CARBON DIOXIDE (test code = 220) 24 MEQ/L 19-31 CALCIUM (test code = [...] 34 U/L 5-40 CBC W/AUTO DIFF WITH [id number] 02:27:39* Test Item Value Reference Range Interpretation [...] 0.00-0.10 ABS NUCLEATED RBCS (test code = 06047) 0.00 K/UL 0.00-0.11 COMPREHENSIVE METABOLIC [id number] 00:00:00* Test Item Value Reference Range Interpretation Comme nts GLUCOSE (test code = 2217) 99 MG/DL BUN (test code = 2208) 7 MG/DL CREATININE (test code = 2214) 0.67 MG/DL eGFR (2020 CKD-EPI) (test code = 38231) 121 ML/MIN/1.73 CALC BUN/CREAT (test code = [...] code = 2219) 34 U/L Allen Cunningham, [id number] 00:00:00* Test Item Value Reference Range Interpretation Comme nts TSH, THIRD GENERATION (test code = 2821) 1.840 UIU/ML Allen HernandezCBC W/AUTO [id number] 00:00:00* Test Item Value Reference Range Interpretation [...] ABS NUCLEATED RBCS (test cod e = 45946) 0.00 K/UL Allen HernandezJdyoauH-[id number] 00:00:00* Test Item Value Reference Range Interpretation Comme nts D-DIMER (test code = 1405) <0.27 UG/MLFEU Allen Guillory JxarbhXL-[id number] 00:00:00* Test Item Value Reference Range Interpretation Comme nts NT-proBNP (test code = 90872) 114 PG/ML Allen Guillory DavidCOMPREHENSIVE METABOLIC [id number] 00:00:00* Test Item Value Reference Range Interpretation Comme nts GLUCOSE (test code = 2217) 99 MG/DL BUN (test code = 2208) 7 MG/DL CREATININE (test code = 2214) 0.67 MG/DL eGFR (2020 CKD-EPI) (test code = ) 121 ML/MIN/1.73 CALC BUN/CREAT (test code = [...] 1.7 RATIO BILIRUBIN, TOTAL (test code = 7) 0.3 MG/DL ALKALINE PHOSPHATASE (test code = 2203) 127 U/L AST (test code = 2218) 32 U/L ALT (test code = 2219) 34 U/L Allen Guillory DavidTSH, THIRD [id number] 00:00:00* Test Item Value Reference Range Interpretation Comme [facility] TSH, THIRD GENERATION (test code = 2821) 1.840 UIU/ML Allen Guillory DavidC W/AUTO [id number] 00:00:00* Test Item Value Reference Range Interpretation Comme [facility] WBC (test code = 1001) 7.5 [...] ABS NUCLEATED RBCS (test cod e = 27649) 0.00 K/UL Allen HernandezDlivyoH-[id number] 00:00:00* Test Item Value Reference Range Interpretation Comme nts D-DIMER (test code = 1405) <0.27 UG/MLFEU Allen HernandezDerzjwPG-[id number] 00:00:00* Test Item Value Reference Range Interpretation Comme nts NT-proBNP (test code = 15833) 114 PG/ML Allen HernandezCOMPREHENSIVE METABOLIC [id number] 00:00:00* Test Item Value Reference Range Interpretation Comme nts GLUCOSE (test code = 2217) 99 MG/DL BUN (test code = 2208) 7 MG/DL CREATININE (test code = 2214) 0.67 MG/DL eGFR (2020 CKD-EPI) (test code = 97595) 121 ML/MIN/1.73 CALC BUN/CREAT (test code = [...] = 2219) 34 U/L Allen Cunningham, THIRD [id number] 00:00:00* Test Item Value Reference Range Interpretation Comme nts TSH, THIRD GENERATION (test code = 2821) 1.840 UIU/ML Allen HernandezCBC W/AUTO [id number] 00:00:00* Test Item Value Reference Range Interpretation [...] ABS NUCLEATED RBCS (test cod e = 17292) 0.00 K/UL Allen HernandezKtjsfiZ-[id number] 00:00:00* Test Item Value Reference Range Interpretation Comme nts D-DIMER (test code = 1405) <0.27 UG/MLFEU Allen HernandezMvxktiFG-SFSMUV7391-18-01 00:00:00* Test Item Value Reference Range Interpretation Comme nts NT-proBNP (test code = 03768) 114 PG/ML Allen HernandezCOMPREHENSIVE METABOLIC [id number] 00:00:00* Test Item Value Reference Range Interpretation Comme nts GLUCOSE (test code = 2217) 99 MG/DL BUN (test code = 2208) 7 MG/DL CREATININE (test code = 2214) 0.67 MG/DL eGFR (2020 CKD-EPI) (test code = 90779) 121 ML/MIN/1.73 CALC BUN/CREAT (test code = [...] (test code = 2219) 34 U/L Allen HernandezH, THIRD [id number] 00:00:00* Test Item Value Reference Range Interpretation Comme nts TSH, THIRD GENERATION (test code = 2821) 1.840 UIU/ML Allen HernandezCBC W/AUTO [id number] 00:00:00* Test Item Value Reference Range Interpretation [...] ABS NUCLEATED RBCS (test cod e = 38142) 0.00 K/UL Allen HernandezBvedjcV-[id number] 00:00:00* Test Item Value Reference Range Interpretation Comme nts D-DIMER (test code = 1405) <0.27 UG/MLFEU Allen HernandezEurirdTZ-[id number] 00:00:00* Test Item Value Reference Range Interpretation Comme nts NT-proBNP (test code = 40455) 114 PG/ML Allen HernandezCOMPREHENSIVE METABOLIC [id number] 00:00:00* Test Item Value Reference Range Interpretation Comme nts GLUCOSE (test code = 2217) 99 MG/DL BUN (test code = 2208) 7 MG/DL CREATININE (test code = 2214) 0.67 MG/DL eGFR (2020 CKD-EPI) (test code = 39330) 121 ML/MIN/1.73 CALC BUN/CREAT (test code = [...] = 2219) 34 U/L Allen HernandezTSH, THIRD [id number] 00:00:00* Test Item Value Reference Range Interpretation Comme nts TSH, THIRD GENERATION (test code = 2821) 1.840 UIU/ML Allen Guillory DavidCBC W/AUTO [id number] 00:00:00* Test Item Value Reference Range Interpretation [...] ABS NUCLEATED RBCS (test cod e = 32587) 0.00 K/UL Allen HernandezPhtlaoG-[id number] 00:00:00* Test Item Value Reference Range Interpretation Comme nts D-DIMER (test code = 1405) <0.27 UG/MLFEU Allen HernandezKrbcznGF-[id number] 00:00:00* Test Item Value Reference Range Interpretation Comme nts NT-proBNP (test code = 15235) 114 PG/ML Allen HernandezCOMPREHENSIVE METABOLIC [id number] 00:00:00* Test Item Value Reference Range Interpretation Comme nts GLUCOSE (test code = 2217) 99 MG/DL BUN (test code = 2208) 7 MG/DL CREATININE (test code = 2214) 0.67 MG/DL eGFR (2020 CKD-EPI) (test code = 83093) 121 ML/MIN/1.73 CALC BUN/CREAT (test code = [...] = 2219) 34 U/L Allen HernandezTSH, THIRD [id number] 00:00:00* Test Item Value Reference Range Interpretation Comme nts TSH, THIRD GENERATION (test code = 2821) 1.840 UIU/ML Allen HernandezCBC W/AUTO [id number] 00:00:00* Test Item Value Reference Range Interpretation [...] ABS NUCLEATED RBCS (test cod e = 19758) 0.00 K/UL Allen Guillory JttermG-[id number] 00:00:00* Test Item Value Reference Range Interpretation Comme nts D-DIMER (test code = 1405) <0.27 UG/MLFEU Allen Guillory EetfjjWM-[id number] 00:00:00* Test Item Value Reference Range Interpretation Comme nts NT-proBNP (test code = 46907) 114 PG/ML Allen Guillory DavidCOMPREHENSIVE METABOLIC [id number] 00:00:00* Test Item Value Reference Range Interpretation Comme nts GLUCOSE (test code = 2217) 99 MG/DL BUN (test code = 2208) 7 MG/DL CREATININE (test code = 2214) 0.67 MG/DL eGFR (2020 CKD-EPI) (test code = 12199) 121 ML/MIN/1.73 CALC BUN/CREAT (test code = [...] = 2219) 34 U/L Allen HernandezTSH, THIRD [id number] 00:00:00* Test Item Value Reference Range Interpretation Comme nts TSH, THIRD GENERATION (test code = 2821) 1.840 UIU/ML Allen HernandezCBC W/AUTO [id number] 00:00:00* Test Item Value Reference Range Interpretation [...] ABS NUCLEATED RBCS (test cod e = 30977) 0.00 K/UL Allen HernandezBpfpurI-TQHOQ0067-10-01 00:00:00* Test Item Value Reference Range Interpretation Comme nts D-DIMER (test code = 1405) <0.27 UG/MLFEU Allen HernandezQbvksdJB-NOWZJK1291-27-01 00:00:00* Test Item Value Reference Range Interpretation Comme nts NT-proBNP (test code = 67689) 114 PG/ML Allen HernandezCOMPREHENSIVE METABOLIC [id number] 00:00:00* Test Item Value Reference Range Interpretation Comme nts GLUCOSE (test code = 2217) 99 MG/DL BUN (test code = 2208) 7 MG/DL CREATININE (test code = 2214) 0.67 MG/DL eGFR (2020 CKD-EPI) (test code = 09924) 121 ML/MIN/1.73 CALC BUN/CREAT (test code = [...] = 2219) 34 U/L Allen HernandezTSH, THIRD [id number] 00:00:00* Test Item Value Reference Range Interpretation Comme nts TSH, THIRD GENERATION (test code = 2821) 1.840 UIU/ML Allen HernandezCBC W/AUTO [id number] 00:00:00* Test Item Value Reference Range Interpretation [...] ABS NUCLEATED RBCS (test cod e = 67355) 0.00 K/UL Allen Guillory FudbifM-[id number] 00:00:00* Test Item Value Reference Range Interpretation Comme nts D-DIMER (test code = 1405) <0.27 UG/MLFEU Allen Guillory UpolsaPM-[id number] 00:00:00* Test Item Value Reference Range Interpretation Comme nts NT-proBNP (test code = 69774) 114 PG/ML Allen Guillory DavidPOCT URINALYSIS W/O SPECIFIC [id number] 20:17:00* Test Item Value Reference Range Interpretation [...] = 3257) N/A Negative - Negati ve [facility] [id number] 20:16:00* Test Item Value Reference Range Interpretation Comme nts POCT PREG (test code = 1605) Positive On board controls acceptable with C Line (test code = 3574) Yes POCT PREG LOT # (test code = 3575) POCT PREG TEST DATE ( test code = 3576) [facility]O [id number] 00:00:00* Test Item Value Reference Range Interpretation [...] HernandezGLUCOSE, 1 HR, GESTATIONAL SCREEN, 50 GM [id number] 00:00:00 * Test Item Value Reference Range Interpretation Comme nts GLUCOSE 1 HR POST 50 GM (georges t code = 2005) 96 MG/DL Allen HughesC W/AUTO [id number] 00:00:00* Test Item Value Reference Range Interpretation [...] AustinGLUCOSE, 1 HR, GESTATIONAL SCREEN, 50 GM [id number] 00:00:00 * Test Item Value Reference Range Interpretation Comme nts GLUCOSE 1 HR POST 50 GM (georges t code = 2005) 96 MG/DL Allen F AustinCBC W/AUTO [id number] 00:00:00* Test Item Value Reference Range Interpretation [...] (test code = 1015) 285 K/UL Allen F AustinGLUCOSE, 1 HR, GESTATIONAL SCREEN, 50 GM [id number] 00:00:00 * Test Item Value Reference Range Interpretation Comme nts GLUCOSE 1 HR POST 50 GM (georges t code = 2005) 96 MG/DL Allen F AustinCBC W/AUTO [id number] 00:00:00* Test Item Value Reference Range Interpretation [...] AustinGLUCOSE, 1 HR, GESTATIONAL SCREEN, 50 GM [id number] 00:00:00 * Test Item Value Reference Range Interpretation Comme nts GLUCOSE 1 HR POST 50 GM (georges t code = 2005) 96 MG/DL Allen F AustinCBC W/AUTO [id number] 00:00:00* Test Item Value Reference Range Interpretation [...] AustinGLUCOSE, 1 HR, GESTATIONAL SCREEN, 50 GM [id number] 00:00:00 * Test Item Value Reference Range Interpretation Comme nts GLUCOSE 1 HR POST 50 GM (georges t code = 2005) 96 MG/DL Allen F AustinCBC W/AUTO [id number] 00:00:00* Test Item Value Reference Range Interpretation [...] AustinGLUCOSE, 1 HR, GESTATIONAL SCREEN, 50 GM [id number] 00:00:00 * Test Item Value Reference Range Interpretation Comme nts GLUCOSE 1 HR POST 50 GM (georges t code = 2005) 96 MG/DL Allen F AustinCBC W/AUTO [id number] 00:00:00* Test Item Value Reference Range Interpretation [...] (test code = 1015) 285 K/UL Allen F AustinGLUCOSE, 1 HR, GESTATIONAL SCREEN, 50 GM [id number] 00:00:00 * Test Item Value Reference Range Interpretation Comme nts GLUCOSE 1 HR POST 50 GM (georges t code = 2005) 96 MG/DL Allen F AustinCBC W/AUTO [id number] 00:00:00* Test Item Value Reference Range Interpretation [...] HernandezGLUCOSE, 1 HR, GESTATIONAL SCREEN, 50 GM [id number] 00:00:00 * Test Item Value Reference Range Interpretation Comme nts GLUCOSE 1 HR POST 50 GM (georges t code = 2006) 96 MG/DL Allen Guillory AustinCBC W/AUTO [id number] 00:00:00* Test Item Value Reference Range Interpretation [...] HernandezGLUCOSE, 1 HR, GESTATIONAL SCREEN, 50 GM [id number] 00:00:00 * Test Item Value Reference Range Interpretation Comme nts GLUCOSE 1 HR POST 50 GM (georges t code = 2005) 96 MG/DL Allen Kim, [id number] 00:00:00* Test Item Value Reference Range Interpretation Comme nts CULTURE, URINE (test code = 26073) SPECIMEN NUMBER: [id number] Allen Kim [id number] 00:00:00* Test Item Value Reference Range Interpretation Comme nts CULTURE, URINE (test code = 64857) SPECIMEN NUMBER: [id number] Allen Kim, [id number] 00:00:00* Test Item Value Reference Range Interpretation Comme nts CULTURE, URINE (test code = 07107) SPECIMEN NUMBER: [id number] Allen Kim [id number] 00:00:00* Test Item Value Reference Range Interpretation Comme nts CULTURE, URINE (test code = 97824) SPECIMEN NUMBER: [id number] Allen Kim [id number] 00:00:00* Test Item Value Reference Range Interpretation Comme nts CULTURE, URINE (test code = 94319) SPECIMEN NUMBER: [id number] Allen Kim, [id number] 00:00:00* Test Item Value Reference Range Interpretation Comme nts CULTURE, URINE (test code = 98863) SPECIMEN NUMBER: [id number] Allen Kim, [id number] 00:00:00* Test Item Value Reference Range Interpretation Comme nts CULTURE, URINE (test code = 98068) SPECIMEN NUMBER: [id number] Allen Kim, [id number] 00:00:00* Test Item Value Reference Range Interpretation Comme nts CULTURE, URINE (test code = 70868) SPECIMEN NUMBER: [id number] Allen Kim, [id number] 00:00:00* Test Item Value Reference Range Interpretation Comme nts CULTURE, URINE (test code = 65502) SPECIMEN NUMBER: [id number] Allen HernandezDRUG ABUSE PANEL 10 WITH [id number] 00:00:00* Test Item Value Reference Range Interpretation [...] 3217) URINE OXYCODONE, URINE (test code = 72620) NEGATIVE Allen F AustinDRUG ABUSE PANEL 10 WITH [id number] 00:00:00* Test Item Value Reference Range Interpretation [...] 3217) URINE OXYCODONE, URINE (test code = 86564) NEGATIVE Allen F AustinDRUG ABUSE PANEL 10 WITH [id number] 00:00:00* Test Item Value Reference Range Interpretation [...] 3217) URINE OXYCODONE, URINE (test code = 24410) NEGATIVE Allen F AustinDRUG ABUSE PANEL 10 WITH [id number] 00:00:00* Test Item Value Reference Range Interpretation [...] 3217) URINE OXYCODONE, URINE (test code = 87112) NEGATIVE Allen F AustinDRUG ABUSE PANEL 10 WITH [id number] 00:00:00* Test Item Value Reference Range Interpretation [...] 3217) URINE OXYCODONE, URINE (test code = 40984) NEGATIVE Allen F AustinDRUG ABUSE PANEL 10 WITH [id number] 00:00:00* Test Item Value Reference Range Interpretation [...] 3217) URINE OXYCODONE, URINE (test code = 31501) NEGATIVE Allen F AustinDRUG ABUSE PANEL 10 WITH [id number] 00:00:00* Test Item Value Reference Range Interpretation [...] 3217) URINE OXYCODONE, URINE (test code = 89938) NEGATIVE Allen F AustinDRUG ABUSE PANEL 10 WITH [id number] 00:00:00* Test Item Value Reference Range Interpretation [...] 3217) URINE OXYCODONE, URINE (test code = 54729) NEGATIVE [facility] PAN[facility] 10 WITH [id number] 00:00:00* Test Item Value Reference Range Interpretation [...] 3217) URINE OXYCODONE, URINE (test code = 96072) NEGATIVE [facility] 10 WITH [id number] 00:00:00* Test Item Value Reference Range Interpretation [...] 3217) URINE OXYCODONE, URINE (test code = 19282) NEGATIVE [facility] PAN[facility] 10 WITH [id number] 00:00:00* Test Item Value Reference Range Interpretation [...] 3217) URINE OXYCODONE, URINE (test code = 34048) NEGATIVE [facility] PAN[facility] 10 WITH [id number] 00:00:00* Test Item Value Reference Range Interpretation [...] 3217) URINE OXYCODONE, URINE (test code = 77992) NEGATIVE [facility] 10 WITH [id number] 00:00:00* Test Item Value Reference Range Interpretation [...] 3217) URINE OXYCODONE, URINE (test code = 65460) NEGATIVE [facility] 10 WITH [id number] 00:00:00* Test Item Value Reference Range Interpretation [...] 3217) URINE OXYCODONE, URINE (test code = 13672) NEGATIVE [facility] F [facility] ABUSE PANEL 10 WITH [id number] 00:00:00* Test Item Value Reference Range Interpretation [...] 3217) URINE OXYCODONE, URINE (test code = 63276) NEGATIVE [facility] PAN[facility] 10 WITH [id number] 00:00:00* Test Item Value Reference Range Interpretation [...] 3217) URINE OXYCODONE, URINE (test code = 54299) NEGATIVE Allen Guillory [facility] ABUSE PANEL 10 WITH [id number] 00:00:00* Test Item Value Reference Range Interpretation [...] 3217) URINE OXYCODONE, URINE (test code = 38225) NEGATIVE [facility] Guillory [facility] PAN[facility] 10 WITH [id number] 00:00:00* Test Item Value Reference Range Interpretation [...] 3217) URINE OXYCODONE, URINE (test code = 00548) NEGATIVE Allen HernandezCULTURE, [id number] 00:00:00* Test Item Value Reference Range Interpretation Comme nts CULTURE, URINE (test code = 97232) SPECIMEN NUMBER: [id number] Allen Kim, [id number] 00:00:00* Test Item Value Reference Range Interpretation Comme nts CULTURE, URINE (test code = 69800) SPECIMEN NUMBER: [id number] Allen Kim [id number] 00:00:00* Test Item Value Reference Range Interpretation Comme nts CULTURE, URINE (test code = 91279) SPECIMEN NUMBER: [id number] Allen Kim [id number] 00:00:00* Test Item Value Reference Range Interpretation Comme nts CULTURE, URINE (test code = 30846) SPECIMEN NUMBER: [id number] Allen Kim [id number] 00:00:00* Test Item Value Reference Range Interpretation Comme nts CULTURE, URINE (test code = 54583) SPECIMEN NUMBER: [id number] Allen Kim, [id number] 00:00:00* Test Item Value Reference Range Interpretation Comme nts CULTURE, URINE (test code = 45041) SPECIMEN NUMBER: [id number] Allen Kim, [id number] 00:00:00* Test Item Value Reference Range Interpretation Comme nts CULTURE, URINE (test code = 48500) SPECIMEN NUMBER: [id number] Allen Kim [id number] 00:00:00* Test Item Value Reference Range Interpretation Comme nts CULTURE, URINE (test code = 87970) SPECIMEN NUMBER: [id number] Allen Kim [id number] 00:00:00* Test Item Value Reference Range Interpretation Comme nts CULTURE, URINE (test code = 64321) SPECIMEN NUMBER: [id number] Allen HernandezOBSTETRIC PANEL + [id number] 00:00:00* Test Item Value Reference Range Interpretation [...] IU/ML RUBELLA IgG INTERP (test code = 94853) REACTIVE HEPATITIS B SURF AG (test code = 2739) NON-REACTIVE RPR RESULT (test code = 3501) NON-REACTIVE RPR TITER (test code = 3500) NOT INDIC. TITER HIV 1/2 AB/AG RFLX CONF (test code = 3514) NON-REACTIVE Allen HernandezACID HGB [id number] 00:00:00* Test Item Value Reference Range Interpretation Comme nts HEMOGLOBIN A1 (test code = 2575) 97.1 % HEMOGLOBIN A2 (test code = 2576) 2.9 % HEMOGLOBIN F () (test c ode = 2722) 0.0 % HEMOGLOBIN S (test code = 2724) NONE % HEMOGLOBIN C (test code = 2726) NONE % ACID HEMOGLOBIN FINDINGS (te st code = 76105) NONE PATHOLOGIST'S INTERPRETATION (test code = 2577) (NOTE) Allen [id number] 00:00:00* Test Item Value Reference Range Interpretation Comme nts TSH (test code = 2821) 1.2 UIU/ML Allen HernandezHEPATITIS C [id number] 00:00:00* Test Item Value Reference Range Interpretation Comme nts HEPATITIS C ANTIBODY (test c ode = 4649) NON-REACTIVE Allen HernandezOBSTETRIC PANEL + [id number] 00:00:00* Test Item Value Reference Range Interpretation [...] IU/ML RUBELLA IgG INTERP (test code = 90903) REACTIVE HEPATITIS B SURF AG (test code = 2739) NON-REACTIVE RPR RESULT (test code = 3501) NON-REACTIVE RPR TITER (test code = 3500) NOT INDIC. TITER HIV 1/2 AB/AG RFLX CONF (test code = 3514) NON-REACTIVE Allen HernandezACID HGB [id number] 00:00:00* Test Item Value Reference Range Interpretation Comme nts HEMOGLOBIN A1 (test code = 2575) 97.1 % HEMOGLOBIN A2 (test code = 2576) 2.9 % HEMOGLOBIN F () (test c ode = 2722) 0.0 % HEMOGLOBIN S (test code = 2724) NONE % HEMOGLOBIN C (test code = 2726) NONE % ACID HEMOGLOBIN FINDINGS (te st code = 14733) NONE PATHOLOGIST'S INTERPRETATION (test code = 2577) (NOTE) Allen [id number] 00:00:00* Test Item Value Reference Range Interpretation Comme nts TSH (test code = 2821) 1.2 UIU/ML Allen HernandezHEPATITIS C [id number] 00:00:00* Test Item Value Reference Range Interpretation Comme nts HEPATITIS C ANTIBODY (test c ode = 4670) NON-REACTIVE Allen HernandezOBSTETRIC PANEL + [id number] 00:00:00* Test Item Value Reference Range Interpretation [...] IU/ML RUBELLA IgG INTERP (test code = 90472) REACTIVE HEPATITIS B SURF AG (test code = 2739) NON-REACTIVE RPR RESULT (test code = 3501) NON-REACTIVE RPR TITER (test code = 3500) NOT INDIC. TITER HIV 1/2 AB/AG RFLX CONF (test code = 3514) NON-REACTIVE Allen HernandezACID HGB [id number] 00:00:00* Test Item Value Reference Range Interpretation Comme nts HEMOGLOBIN A1 (test code = 2575) 97.1 % HEMOGLOBIN A2 (test code = 2576) 2.9 % HEMOGLOBIN F () (test c ode = 2722) 0.0 % HEMOGLOBIN S (test code = 2724) NONE % HEMOGLOBIN C (test code = 2726) NONE % ACID HEMOGLOBIN FINDINGS (te st code = 21413) NONE PATHOLOGIST'S INTERPRETATION (test code = 2577) (NOTE) Allen [id number] 00:00:00* Test Item Value Reference Range Interpretation Comme nts TSH (test code = 2821) 1.2 UIU/ML Allen HernandezHEPATITIS C [id number] 00:00:00* Test Item Value Reference Range Interpretation Comme nts HEPATITIS C ANTIBODY (test c ode = 0295) NON-REACTIVE Allen HernandezOBSTETRIC PANEL + [id number] 00:00:00* Test Item Value Reference Range Interpretation [...] IU/ML RUBELLA IgG INTERP (test code = 61502) REACTIVE HEPATITIS B SURF AG (test code = 2739) NON-REACTIVE RPR RESULT (test code = 3501) NON-REACTIVE RPR TITER (test code = 3500) NOT INDIC. TITER HIV 1/2 AB/AG RFLX CONF (test code = 3514) NON-REACTIVE Allen HernandezACID HGB [id number] 00:00:00* Test Item Value Reference Range Interpretation Comme nts HEMOGLOBIN A1 (test code = 2575) 97.1 % HEMOGLOBIN A2 (test code = 2576) 2.9 % HEMOGLOBIN F () (test c ode = 8371) 0.0 % HEMOGLOBIN S (test code = 2724) NONE % HEMOGLOBIN C (test code = 2726) NONE % ACID HEMOGLOBIN FINDINGS (te st code = 13882) NONE PATHOLOGIST'S INTERPRETATION (test code = 2577) (NOTE) Allen [id number] 00:00:00* Test Item Value Reference Range Interpretation Comme nts TSH (test code = 2821) 1.2 UIU/ML Allen HernandezHEPATITIS C [id number] 00:00:00* Test Item Value Reference Range Interpretation Comme nts HEPATITIS C ANTIBODY (test c ode = 3154) NON-REACTIVE Allen HernandezOBSTETRIC PANEL + [id number] 00:00:00* Test Item Value Reference Range Interpretation [...] IU/ML RUBELLA IgG INTERP (test code = 90712) REACTIVE HEPATITIS B SURF AG (test code = 2739) NON-REACTIVE RPR RESULT (test code = 3501) NON-REACTIVE RPR TITER (test code = 3500) NOT INDIC. TITER HIV 1/2 AB/AG RFLX CONF (test code = 3514) NON-REACTIVE Allen HernandezACID HGB [id number] 00:00:00* Test Item Value Reference Range Interpretation Comme nts HEMOGLOBIN A1 (test code = 2575) 97.1 % HEMOGLOBIN A2 (test code = 2576) 2.9 % HEMOGLOBIN F () (test c ode = 2592) 0.0 % HEMOGLOBIN S (test code = 2724) NONE % HEMOGLOBIN C (test code = 2726) NONE % ACID HEMOGLOBIN FINDINGS (te st code = 41894) NONE PATHOLOGIST'S INTERPRETATION (test code = 2577) (NOTE) Allen [id number] 00:00:00* Test Item Value Reference Range Interpretation Comme nts TSH (test code = 2821) 1.2 UIU/ML Allen HernandezHEPATITIS C [id number] 00:00:00* Test Item Value Reference Range Interpretation Comme nts HEPATITIS C ANTIBODY (test c ode = 1356) NON-REACTIVE Allen HernandezOBSTETRIC PANEL + [id number] 00:00:00* Test Item Value Reference Range Interpretation [...] IU/ML RUBELLA IgG INTERP (test code = 00450) REACTIVE HEPATITIS B SURF AG (test code = 2739) NON-REACTIVE RPR RESULT (test code = 3501) NON-REACTIVE RPR TITER (test code = 3500) NOT INDIC. TITER HIV 1/2 AB/AG RFLX CONF (test code = 3514) NON-REACTIVE Allen HernandezACID HGB [id number] 00:00:00* Test Item Value Reference Range Interpretation Comme nts HEMOGLOBIN A1 (test code = 2575) 97.1 % HEMOGLOBIN A2 (test code = 2576) 2.9 % HEMOGLOBIN F () (test c ode = 5112) 0.0 % HEMOGLOBIN S (test code = 2724) NONE % HEMOGLOBIN C (test code = 2726) NONE % ACID HEMOGLOBIN FINDINGS (te st code = 16182) NONE PATHOLOGIST'S INTERPRETATION (test code = 2577) (NOTE) Allen [id number] 00:00:00* Test Item Value Reference Range Interpretation Comme nts TSH (test code = 2821) 1.2 UIU/ML Allen HernandezHEPATITIS C [id number] 00:00:00* Test Item Value Reference Range Interpretation Comme nts HEPATITIS C ANTIBODY (test c ode = 5551) NON-REACTIVE Allen HernandezOBSTETRIC PANEL + [id number] 00:00:00* Test Item Value Reference Range Interpretation [...] IU/ML RUBELLA IgG INTERP (test code = 48255) REACTIVE HEPATITIS B SURF AG (test code = 2739) NON-REACTIVE RPR RESULT (test code = 3501) NON-REACTIVE RPR TITER (test code = 3500) NOT INDIC. TITER HIV 1/2 AB/AG RFLX CONF (test code = 3514) NON-REACTIVE Allen HernandezACID HGB [id number] 00:00:00* Test Item Value Reference Range Interpretation Comme nts HEMOGLOBIN A1 (test code = 2575) 97.1 % HEMOGLOBIN A2 (test code = 2576) 2.9 % HEMOGLOBIN F () (test c ode = 2722) 0.0 % HEMOGLOBIN S (test code = 2724) NONE % HEMOGLOBIN C (test code = 2726) NONE % ACID HEMOGLOBIN FINDINGS (te st code = 99389) NONE PATHOLOGIST'S INTERPRETATION (test code = 2577) (NOTE) Allen [id number] 00:00:00* Test Item Value Reference Range Interpretation Comme nts TSH (test code = 2821) 1.2 UIU/ML Allen HernandezHEPATITIS C [id number] 00:00:00* Test Item Value Reference Range Interpretation Comme nts HEPATITIS C ANTIBODY (test c ode = 5176) NON-REACTIVE Allen HernandezOBSTETRIC PANEL + [id number] 00:00:00* Test Item Value Reference Range Interpretation [...] IU/ML RUBELLA IgG INTERP (test code = 36486) REACTIVE HEPATITIS B SURF AG (test code = 2739) NON-REACTIVE RPR RESULT (test code = 3501) NON-REACTIVE RPR TITER (test code = 3500) NOT INDIC. TITER HIV 1/2 AB/AG RFLX CONF (test code = 3514) NON-REACTIVE Allen HernandezACID HGB [id number] 00:00:00* Test Item Value Reference Range Interpretation Comme nts HEMOGLOBIN A1 (test code = 2575) 97.1 % HEMOGLOBIN A2 (test code = 2576) 2.9 % HEMOGLOBIN F () (test c ode = 2721) 0.0 % HEMOGLOBIN S (test code = 2724) NONE % HEMOGLOBIN C (test code = 2726) NONE % ACID HEMOGLOBIN FINDINGS (te st code = 29723) NONE PATHOLOGIST'S INTERPRETATION (test code = 2577) (NOTE) Allen [id number] 00:00:00* Test Item Value Reference Range Interpretation Comme nts TSH (test code = 2821) 1.2 UIU/ML Allen HernandezHEPATITIS C [id number] 00:00:00* Test Item Value Reference Range Interpretation Comme nts HEPATITIS C ANTIBODY (test c ode = 3106) NON-REACTIVE Allen HernandezOBSTETRIC PANEL + [id number] 00:00:00* Test Item Value Reference Range Interpretation [...] IU/ML RUBELLA IgG INTERP (test code = 57967) REACTIVE HEPATITIS B SURF AG (test code = 2739) NON-REACTIVE RPR RESULT (test code = 3501) NON-REACTIVE RPR TITER (test code = 3500) NOT INDIC. TITER HIV 1/2 AB/AG RFLX CONF (test code = 3514) NON-REACTIVE Allen Guillory AustinACID HGB [id number] 00:00:00* Test Item Value Reference Range Interpretation Comme nts HEMOGLOBIN A1 (test code = 2575) 97.1 % HEMOGLOBIN A2 (test code = 2576) 2.9 % HEMOGLOBIN F () (test c ode = 2722) 0.0 % HEMOGLOBIN S (test code = 2724) NONE % HEMOGLOBIN C (test code = 2726) NONE % ACID HEMOGLOBIN FINDINGS (te st code = 91041) NONE PATHOLOGIST'S INTERPRETATION (test code = 2577) (NOTE) Allen Guillory [id number] 00:00:00* Test Item Value Reference Range Interpretation Comme nts TSH (test code = 2821) 1.2 UIU/ML Allen HernandezHEPATITIS C [id number] 00:00:00* Test Item Value Reference Range Interpretation Comme nts HEPATITIS C ANTIBODY (test c ode = 4675) NON-REACTIVE Allen HernandezPAP TEST, THINPREP, [id number] 00:00:00* Test Item Value Reference Range Interpretation Comme nts SOURCE: (test code = 8001) A) Cervical/Endocervical SLIDES: (test code = 8011) 1 LMP: (test code = 8021) 01/09/2016 SPECIMEN ADEQUACY: (test code = 21169) (NOTE) INTERPRETATION: (test code = 62338) NO EPITHELIAL ABNORMALITY SEE BELOW COPY CENTER ASSOCIATE: (test code = 8101) [place](ASCP) LOCATION: (test code = 48200) (NOTE) CPT: (test code = 8140) (NOTE) Allen HernandezPAP TEST, THINPREP, [id number] 00:00:00* Test Item Value Reference Range Interpretation Comme nts SOURCE: (test code = 8001) A) Cervical/Endocervical SLIDES: (test code = 8011) 1 LMP: (test code = 8021) 01/09/2016 SPECIMEN ADEQUACY: (test code = 06583) (NOTE) INTERPRETATION: (test code = 15876) NO EPITHELIAL ABNORMALITY SEE BELOW COPY CENTER ASSOCIATE: (test code = 8101) [place](ASCP) LOCATION: (test code = 25665) (NOTE) CPT: (test code = 8140) (NOTE) Allen HernandezPAP TEST, THINPREP, [id number] 00:00:00* Test Item Value Reference Range Interpretation Comme nts SOURCE: (test code = 8001) A) Cervical/Endocervical SLIDES: (test code = 8011) 1 LMP: (test code = 8021) 01/09/2016 SPECIMEN ADEQUACY: (test code = 50929) (NOTE) INTERPRETATION: (test code = 68364) NO EPITHELIAL ABNORMALITY SEE BELOW COPY CENTER ASSOCIATE: (test code = 8101) [place](ASCP) LOCATION: (test code = 60614) (NOTE) CPT: (test code = 8140) (NOTE) Allen HernandezPAP TEST, THINPREP, [id number] 00:00:00* Test Item Value Reference Range Interpretation Comme nts SOURCE: (test code = 8001) A) Cervical/Endocervical SLIDES: (test code = 8011) 1 LMP: (test code = 8021) 01/09/2016 SPECIMEN ADEQUACY: (test code = 88552) (NOTE) INTERPRETATION: (test code = 64751) NO EPITHELIAL ABNORMALITY SEE BELOW COPY CENTER ASSOCIATE: (test code = 8101) Tari Jamesjessica,[place](ASCP) LOCATION: (test code = 34322) (NOTE) CPT: (test code = 8140) (NOTE) Allen RodríguezP TEST, THINPREP, [id number] 00:00:00* Test Item Value Reference Range Interpretation Comme nts SOURCE: (test code = 8001) A) Cervical/Endocervical SLIDES: (test code = 8011) 1 LMP: (test code = 8021) 01/09/2016 SPECIMEN ADEQUACY: (test code = 22651) (NOTE) INTERPRETATION: (test code = 16046) NO EPITHELIAL ABNORMALITY SEE BELOW COPY CENTER ASSOCIATE: (test code = 8101) [place](ASCP) LOCATION: (test code = 00459) (NOTE) CPT: (test code = 8140) (NOTE) Allen RodríguezP TEST, THINPREP, [id number] 00:00:00* Test Item Value Reference Range Interpretation Comme nts SOURCE: (test code = 8001) A) Cervical/Endocervical SLIDES: (test code = 8011) 1 LMP: (test code = 8021) 01/09/2016 SPECIMEN ADEQUACY: (test code = 34154) (NOTE) INTERPRETATION: (test code = 19564) NO EPITHELIAL ABNORMALITY SEE BELOW COPY CENTER ASSOCIATE: (test code = 8101) [facility] LOCATION: (test code = 72695) (NOTE) CPT: (test code = 8140) (NOTE) Allen RodríguezP TEST, THINPREP, [id number] 00:00:00* Test Item Value Reference Range Interpretation Comme nts SOURCE: (test code = 8001) A) Cervical/Endocervical SLIDES: (test code = 8011) 1 LMP: (test code = 8021) 01/09/2016 SPECIMEN ADEQUACY: (test code = 29617) (NOTE) INTERPRETATION: (test code = 05978) NO EPITHELIAL ABNORMALITY SEE BELOW COPY CENTER ASSOCIATE: (test code = 8101) [facility] LOCATION: (test code = 70983) (NOTE) CPT: (test code = 8140) (NOTE) Allen RodríguezP TEST, THINPREP, [id number] 00:00:00* Test Item Value Reference Range Interpretation Comme nts SOURCE: (test code = 8001) A) Cervical/Endocervical SLIDES: (test code = 8011) 1 LMP: (test code = 8021) 01/09/2016 SPECIMEN ADEQUACY: (test code = 54507) (NOTE) INTERPRETATION: (test code = 45932) NO EPITHELIAL ABNORMALITY SEE BELOW COPY CENTER ASSOCIATE: (test code = 8101) [place](ASCP) LOCATION: (test code = 54839) (NOTE) CPT: (test code = 8140) (NOTE) Allen RodríguezP TEST, THINPREP, [id number] 00:00:00* Test Item Value Reference Range Interpretation Comme nts SOURCE: (test code = 8001) A) Cervical/Endocervical SLIDES: (test code = 8011) 1 LMP: (test code = 8021) 01/09/2016 SPECIMEN ADEQUACY: (test code = 24508) (NOTE) INTERPRETATION: (test code = 21344) NO EPITHELIAL ABNORMALITY SEE BELOW COPY CENTER ASSOCIATE: (test code = 8101) [facility]: (test code = 41094) (NOTE) CPT: (test code = 8140) (NOTE) Allen Kahlil David Notes Date/Time Note Provider [facility]25-[facility]-17 [facility]:00:00 [facility]2025-02-11 00:00[facility]00 [facility]2025-01-24 00:00[facility]00 [facility]2024-06-20 00:00:00 Allen [facility]2024-06-06 00:00:00 [facility]2024-05-21 00:00:00 Allen [facility]
[2025-08-08] MEDS ORDERED: MORPHINE 4 MG/ML SYR ONE (10:40)
[2025-08-08] MEDS ORDERED: ONDANSETRON 4 MG/2 ML VIAL ONE (10:40)
[2025-08-08] MEDS ORDERED: NA CHLORIDE 0.9% 1,000 ML ONE (10:41)
[2025-08-08 11:07] LABS: Absolute Lymphocytes (CBC) 1.7 K/uL (0.7-4.9); Hematocrit 38.8 % (36.0-45.0); Hemoglobin 13.4 g/dL (12.0-15.0); MCH 28.8 pg (27.0-35.0); MCHC 34.5 g/dL (32.0-36.0); MCV 83.7 fL (80-100); MPV 8.8 fL (7.6-11.3); Nucleated RBC Absolute Count 0.0 (0-0); Nucleated Red Blood Cells % 0.0 % (0-0); RBC Red Blood Cell Count 4.64 M/uL (3.86-4.86); White Blood Count 12.80 thou/uL (4.3-10.9)
[2025-08-08 11:23] LABS: Sqamous Epithelial <5 /HPF (None Seen); Urine Crystals Unidentified Few /HPF (None Seen); Urine Culture Reflex Order REFLEXED; Urine Microscopic Reflex YN ORDER UMIC; Urine WBC Clump Rare /HPF (None Seen); Urine Yeast (Budding) Trace /HPF (None Seen)
[2025-08-08 11:29] LABS: ALT/SGPT 44 U/L (13-56); AST/SGOT < 10 U/L (15-37); Albumin 4.2 g/dL (3.4-5.0); Albumin/Globulin Ratio 1.1 (1.1-1.8); Alkaline Phosphatase 106 U/L (45-117); Anion Gap 13.0 mEq/L (5.0-15.0); BUN Blood Urea Nitrogen 11 mg/dL (7-18); Globulin 3.9 g/dL (2.3-3.5); Glucose Level 164 mg/dL (74-106); Lipase 30 U/L (13-75); Potassium 3.0 mEq/L (3.5-5.1)
--- NOTE | 2025-08-08 12:58 | RAD REPORT ---
EXAMINATION: CT Abdomen Pelvis W Contrast CLINICAL INDICATION: Female, 29 years old. ABD PAIN TECHNIQUE: CT abdomen and pelvis was performed, after the administration of IV contrast, as per depar tment protocol. Axial, sagittal and coronal reconstructions were obtained. One or more of the following dose reduction techniques were used: Automated exposure control, adjustment of the mA and k V according to patient size, and iterative reconstruction. Unless otherwise specified, incidental findings do not require dedicated imaging follow-up. COMPARISON: 01/03/2025 FINDINGS: LOWER CHEST: The visualized lung bases are clear. LIVER: Normal in size and contour. Subcapsular focal fatty infiltration near the falciform fissure. N o other suspicious focal lesion. BILIARY SYSTEM: Status post cholecystectomy. SPLEEN: Normal size. No focal lesion. PANCREAS: No mass, ductal dilation, or tonia-pancreatic fluid. ADRENALS: Normal; no mass. KIDNEYS: Normal size and contour. No hydronephrosis. URINARY BLADDER: Unremarkable. GASTROINTESTINAL TRACT: No evidence of free air, significant intra-abdominal free fluid, bowel obstru ction or abscess. APPENDIX: Normal appendix. LYMPH NODES: No lymphadenopathy. MUSCULOSKELETAL: No acute or suspicious osseous abnormality. ADDITIONAL FINDINGS: Diastasis recti with hernia mesh in place, with small umbilical hernia seen on t he prior, has since been repaired. Retroverted uterus. Small marginally enhancing left ovarian lesion, may represent a recently ruptured follicle. IMPRESSION: No acute or concerning abnormalities seen in the abdomen or pelvis. Diastasis recti, with no evidence of complications related to the underlying ventricle hernia repair mesh.
--- NOTE | 2025-08-08 14:07 | ER ---
Nurse's Notes [facility] Name: Abigail Arias Age: 29 yrs Sex: Female : 1995 Arrival Date: 08/08/2025 Time: 10:23 Bed 19 Private MD: Diagnosis: Abdominal pain, lactic acidosis, vomiting, AGAINST MEDICAL ADVICE Presentation: 08/08 10:36 Chief complaint: Patient states: had hernia mesh placed on Jul 24, has had abd pain iw since then, worse over past 2 days and now has been vomiting. Coronavirus screen: At this time, the client does not indicate any symptoms associated with coronavirus-19. Ebola Screen: No symptoms or risks identified at this time. Initial Sepsis Screen: Does the patient meet any 2 criteria? No. Patient's initial sepsis screen is negative. Does the patient have a suspected source of infection? No. Patient's initial sepsis screen is negative. Risk Assessment: Do you want to hurt yourself or someone else?. 10:36 Acuity: TRENT 3 iw 10:36 Method Of Arrival: Ambulatory iw 10:44 Onset of symptoms is unknown. ap3 Historical: - Allergies: 11:18 No Known Allergies; hb - PMHx: 10:37 Bipolar disorder; depressive disorder; Anxiety; iw - PSHx: 10:37 section; Cholecystectomy; hernia; iw - Immunization history:: Adult Immunizations unknown. - Infectious Disease History:: Denies. - Social history:: Smoking status: unknown. Screenin:44 [facility] ED Fall Risk Assessment (Adult) History of falling in the last 3 months, ap3 including since admission No falls in past 3 months (0 pts) Confusion or Disorientation No (0 pts) Intoxicated or Sedated No (0 pts) Impaired Gait No (0 pts) Mobility Assist Device Used No (0 pt) Altered Elimination No (0 pt) Score/Fall Risk Level 0 - 2 = Low Risk Oriented to surroundings, Maintained a safe environment, Educated pt \T\ family on fall prevention, incl call for assistance when getting out of bed, Assessed \T\ reinforced patient's understanding of fall precautions, Hourly rounding (assess needs \T\ fall precautionary measures) done, Used ambulatory aids as needed (educated on \T\ assisted with). Abuse screen: Denies threats or abuse. Nutritional screening: No deficits noted. Tuberculosis screening: No symptoms or risk factors identified. Assessment: 10:43 General: Appears in no apparent distress. Behavior is cooperative. Pain: Complains of ap3 pain in abdomen Pain currently is 9 out of 10 on a pain scale. Neuro: Level of Consciousness is awake, alert, obeys commands, Oriented to person, place, time, situation, Appropriate for age Speech is normal. Cardiovascular: Patient's skin is warm and dry. Respiratory: Airway is patent Respiratory effort is even, unlabored, Respiratory pattern is regular, symmetrical. GI: Abdomen is non-distended, Abd is soft Reports lower abdominal pain, upper abdominal pain, nausea, vomiting. 12:30 General: Appears in no apparent distress. comfortable, Behavior is calm, cooperative, rg5 appropriate for age. 12:30 Pain: Complains of pain in abdomen. Neuro: Level of Consciousness is awake, alert, rg5 obeys commands, Oriented to person, place, time, situation. Cardiovascular: Patient's skin is warm and dry. Respiratory: Airway is patent Respiratory effort is even, unlabored. GI: Reports lower abdominal pain, upper abdominal pain, nausea, vomiting. : No signs and/or symptoms were reported regarding the genitourinary system. EENT: No signs and/or symptoms were reported regarding the EENT system. Derm: No signs and/or symptoms reported regarding the dermatologic system. Skin is intact, Skin is normal, Skin temperature is warm. Musculoskeletal: Circulation, motion, and sensation intact. Range of motion: intact in all extremities. 13:30 Reassessment: Patient and/or family updated on plan of care and expected duration. Pain rg5 level reassessed. Patient is alert, oriented x 3, equal unlabored respirations, skin warm/dry/pink. 14:39 Reassessment: Patient and/or family updated on plan of care and expected duration. Pain rg5 level reassessed. Patient is alert, oriented x 3, equal unlabored respirations, skin warm/dry/pink. 15:00 Reassessment: No changes from previously documented assessment. Patient and/or family rg5 updated on plan of care and expected duration. Pain level reassessed. Patient is alert, oriented x 3, equal unlabored respirations, skin warm/dry/pink. Vital Signs: 10:36 BP 137 / 92; Pulse 79; Resp 18; Temp 98.8(O); Pulse Ox 99% on R/A; ap3 10:36 Pain 9/10; ap3 13:30 BP 123 / 80; Pulse 55; Resp 18; Pulse Ox 99% on R/A; rg5 14:20 BP 119 / 71; Pulse 58; Resp 18; Pulse Ox 99% ; rg5 15:00 BP 121 / 72; Pulse 59; Resp 18; Pulse Ox 99% on R/A; Pain 2/10; rg5 10:36 Pain Scale: Adult ap3 15:00 Pain Scale: Adult rg5 ED Course: 10:27 Patient arrived in ED. cj3 10:29 Kimberli Sunshine MD is Attending Physician. sp3 10:37 Triage completed. iw 10:38 Alyce Oconnor, JOBY is Primary Nurse. ap3 10:44 Arm band placed on right wrist. ap3 10:45 Patient has correct armband on for positive identification. Bed in low position. Call ap3 light in reach. Side rails up X 1. Adult w/ patient. Provided Education on: fall risk education. Pulse ox on. NIBP on. 11:18 Accessed peripheral vein via ultrasound, utilizing dynamic ultrasound technique using hb per hospital protocol. Clean \T\ dry. Dressing intact. Good blood return. Flushes easily. 20g RFA. 11:43 CT Abd/Pelvis - IV Contrast Only In Process Unspecified. EDMS 12:15 Report given to JOBY Crowe. ap3 14:06 Mikhail De La Rosa is Hospitalizing Provider. sp3 14:11 Zahida Ferrer MD is Hospitalizing Provider. sp3 15:05 Jerry Saleh MD is Referral Physician. sp3 15:21 No provider procedures requiring assistance completed. IV discontinued, bleeding rg5 controlled, No redness/swelling at site. Pressure dressing applied. Administered Medications: 11:17 Drug: NS 0.9% IV 1000 ml IV at 1 bolus Per protocol; to be given as a bolus over 60 hb minutes Route: IV; Rate: 1 bolus; Site: right forearm; 12:30 Follow up: IV Status: Completed infusion; IV Intake: 1000ml rg5 11:18 Drug: Ondansetron IVP 4 mg IVP once; over 2 minutes Route: IVP; Site: right forearm; hb 12:30 Follow up: Response: No adverse reaction; Pain is decreased rg5 11:18 Drug: morphine IVP or IV 4 mg IVP once over 4 mins Route: IVP; Infused Over: 4 mins; Site: right forearm; 12:30 Follow up: Response: No adverse reaction; Pain is decreased rg5 Medication: 15:00 VIS not applicable for this client. rg5 Intake: 12:30 IV: 1000ml; Total: 1000ml. rg5 Outcome: 14:06 Decision to Hospitalize by Provider. sp3 15:05 Discharge ordered by . sp3 15:21 Discharged to home ambulatory, rg5 15:21 Condition: stable 15:21 Discharge instructions given to patient, Instructed on discharge instructions, Demonstrated understanding of instructions, Prescriptions given X 1, 15:22 Patient left the ED. rg5 Signatures: Dispatcher [employer] EDReema Burdick RN RN Nikole Daily RN Alyce Tiwari RN RN ap3 Kimberli Sunshine MD MD sp3 Sebastien Murillo RN RN rg5 Radha Cheney 3 Corrections: (The following items were deleted from the chart) 12:15 12:13 Report given to JOBY Gallo ap3 ap3
--- NOTE | 2025-08-08 14:07 | EDPHYS ---
Physician Documentation [facility] Name: Abigail Arias Age: 29 yrs Sex: Female : 1995 Arrival Date: 08/08/2025 Time: 10:23 Bed 19 Private MD: ED Physician Kimberli Sunshine HPI: 08/08 10:57 This 29 yrs old Female presents to ER via Ambulatory with complaints of Post Surgical sp3 Pain, Nausea/Vomiting, Abdominal Pain. 10:57 29-year-old female with history of bipolar disease, depression, anxiety, history of sp3 cholecystectomy and umbilical hernia repair with mesh on July 24 of this [address] Saleh now presents to the ED with chief complaint vomiting and periumbilical abdominal pain. Last bowel movement was 3 days ago and last flatus was yesterday. She denies being able to take significant p.o. intake. She denies headache, fever, URI symptoms, chest pain, shortness of breath, extremity pain, syncope, near syncope, bleeding, or any other signs or symptoms on ROS at this time.. Historical: - Allergies: 11:18 No Known Allergies; hb - PMHx: 10:37 Bipolar disorder; depressive disorder; Anxiety; iw - PSHx: 10:37 section; Cholecystectomy; hernia; iw - Immunization history:: Adult Immunizations unknown. - Infectious Disease History:: Denies. - Social history:: Smoking status: unknown. ROS: 10:58 Constitutional: Negative for fever, chills, and weight loss, Eyes: Negative for injury, sp3 pain, redness, and discharge, Neck: Negative for injury, pain, and swelling, Cardiovascular: Negative for chest pain, palpitations, and edema, Respiratory: Negative for shortness of breath, cough, wheezing, and pleuritic chest pain, Back: Negative for injury and pain, MS/Extremity: Negative for injury and deformity, Skin: Negative for injury, rash, and discoloration, Neuro: Negative for headache, weakness, numbness, tingling, and seizure, Psych: Negative for depression, anxiety, suicide ideation, homicidal ideation, and hallucinations, Allergy/Immunology: Negative for hives, rash, and allergies, Endocrine: Negative for neck swelling, polydipsia, polyuria, polyphagia, and marked weight changes, 10:58 All other systems are negative, Exam: 10:58 Constitutional: This is a well developed, well nourished patient who is awake, alert, sp3 and in no acute distress. Head/Face: Normocephalic, atraumatic. Eyes: Pupils equal round and reactive to light, extra-ocular motions intact. Lids and lashes normal. Conjunctiva and sclera are non-icteric and not injected. Cornea within normal limits. Periorbital areas with no swelling, redness, or edema. Neck: Trachea midline, no thyromegaly or masses palpated, and no cervical lymphadenopathy. Supple, full range of motion without nuchal rigidity, or vertebral point tenderness. No Meningismus. Chest/axilla: Normal chest wall appearance and motion. Nontender with no deformity. No lesions are appreciated. Cardiovascular: Regular rate and rhythm with a normal S1 and S2. No gallops, murmurs, or rubs. Normal PMI, no JVD. No pulse deficits. Respiratory: Lungs have equal breath sounds bilaterally, clear to auscultation and percussion. No rales, rhonchi or wheezes noted. No increased work of breathing, no retractions or nasal flaring. Back: No spinal tenderness. No costovertebral tenderness. Full range of motion. Skin: Warm, dry with normal turgor. Normal color with no rashes, no lesions, and no evidence of cellulitis. MS/ Extremity: Pulses equal, no cyanosis. Neurovascular intact. Full, normal range of motion. Neuro: Awake and alert, GCS 15, oriented to person, place, time, and situation. Cranial nerves II-XII grossly intact. Motor strength 5/5 in all extremities. Sensory grossly intact. Cerebellar exam normal. Normal gait. Psych: Awake, alert, with orientation to person, place and time. Behavior, mood, and affect are within normal limits. 10:58 Abdomen/GI: Patient has soft abdomen but painful to palpation periumbilically. No rebound or guarding noted. Nonsurgical abdomen., Vital Signs: 10:36 BP 137 / 92; Pulse 79; Resp 18; Temp 98.8(O); Pulse Ox 99% on R/A; ap3 10:36 Pain 9/10; ap3 13:30 BP 123 / 80; Pulse 55; Resp 18; Pulse Ox 99% on R/A; rg5 14:20 BP 119 / 71; Pulse 58; Resp 18; Pulse Ox 99% ; rg5 15:00 BP 121 / 72; Pulse 59; Resp 18; Pulse Ox 99% on R/A; Pain 2/10; rg5 10:36 Pain Scale: Adult ap3 15:00 Pain Scale: Adult rg5 MDM: 10:29 Medical Screening Exam initiated sp3 10:59 Data reviewed: vital signs, nurses notes, old medical records, lab test result(s), sp3 radiologic studies. ED course: 29-year-old female with postsurgical abdominal pain. Differential diagnosis includes mesh infection, other postsurgical complication, ileus, bowel obstruction, pathology, [employer]ATOR pathology though unlikely, among others. Workup will include CT scan of the abdomen pelvis with IV contrast, general labs, UA, hCG and general supportive care. Treatment with pain control IV fluids and antiemetics to start. Further intervention as indicated. Disposition pending workup and patient course.. 14:04 ED course: Patient with lactate 3.2 and abdominal pain. Will continue to treat with sp3 pain medication, IV hydration and place in observation pending surgical consult and general observation. I have discussed with Dr. Saleh via telephone who will be seeing the patient.. 15:03 ED course: Patient states she has no childcare help at home due to her autistic child sp3 and she needs to be discharged. This will be an informed discharge however she is leaving against medical advice. She states she has appointment with Dr. Saleh tomorrow. Patient states that after the ondansetron she is was able to take a full electrolyte drink and she feels much better.. 08/08 10:37 Order name: CBC with Diff 3 08/08 10:37 Order name: CMP; Complete Time: 13:04 sp3 08/08 10:37 Order name: Lipase; Complete Time: 13:04 3 08/08 10:37 Order name: UA Rfx Jd Cult if indicated; Complete Time: 13:04 3 08/08 10:37 Order name: Test, Urine; Complete Time: 13:04 3 08/08 10:37 Order name: Lactate w/ 2H reflex if indic.; Complete Time: 13:04 3 08/08 11:27 Order name: Urine Culture [facility] 08/08 11:31 Order name: Ghost Lactate-NO COLLECT Timer EDIL 08/08 14:22 Order name: Lactate Sepsis 2 HR Follow-up EDIL 08/08 10:37 Order name: CT Abd/Pelvis - IV Contrast Only; Complete Time: 13:04 sp3 08/08 10:37 Order name: IV Saline Lock; Complete Time: 11:10 sp3 08/08 10:37 Order name: Labs collected and sent; Complete Time: 11:10 sp3 08/08 10:37 Order name: NPO; Complete Time: 10:38 sp3 Administered Medications: 11:17 Drug: NS 0.9% IV 1000 ml IV at 1 bolus Per protocol; to be given as a bolus over 60 hb minutes Route: IV; Rate: 1 bolus; Site: right forearm; 12:30 Follow up: IV Status: Completed infusion; IV Intake: 1000ml rg5 11:18 Drug: Ondansetron IVP 4 mg IVP once; over 2 minutes Route: IVP; Site: right forearm; hb 12:30 Follow up: Response: No adverse reaction; Pain is decreased rg5 11:18 Drug: morphine IVP or IV 4 mg IVP once over 4 mins Route: IVP; Infused Over: 4 mins; hb Site: right forearm; 12:30 Follow up: Response: No adverse reaction; Pain is decreased rg5 Disposition Summary: 08/08/25 15:05 Discharge Ordered Notes: Location: Home(08/08/25 15:05) sp3 Condition: Stable(08/08/25 15:05) sp3 Diagnosis - Abdominal pain, lactic acidosis, vomiting, AGAINST MEDICAL ADVICE sp3 Followup: sp3 - With: Jerry Saleh MD - When: Upon discharge from the Emergency Department - Reason: Continuance of care Discharge Instructions: - Discharge Summary Sheet sp3 - Vomiting, Adult sp3 Forms: - Medication Reconciliation Form sp3 - Antibiotic Education sp3 - Prescription Opioid Use sp3 - Patient Portal Instructions sp3 - Leadership Thank You Letter sp3 Prescriptions: - ondansetron 4 mg Oral Tablet,disintegrating - take 1 tablet ORAL route every 12 hours as needed for nausea and vomiting; 20 sp3 tablet; Refills: 0, Product Selection Permitted Signatures: Dispatcher [facility] Reema Moon RN RN iw Baxter, Heather, RN RN hb Prokisch, Amanda, RN RN ap3 Kimberli Sunshine MD MD sp3 Sebastien Murillo RN rg5 Corrections: (The following items were deleted from the chart) 10:38 10:38 CBC+H.LAB.BRZ ordered. EDMS EDMS 10:38 10:38 COMPREHENSIVE METABOLIC PANEL+C.LAB.BRZ ordered. EDMS EDMS 10:38 10:38 LIPASE+C.LAB.BRZ ordered. EDMS EDMS 10:38 10:38 UA Rfx Jd Cult if indicated+U.LAB.BRZ ordered. EDMS EDMS 10:38 10:38 Test, Urine+UC.LAB.BRZ ordered. EDMS EDMS 10:38 10:38 LACTATE+C.LAB.BRZ ordered. EDMS EDMS 10:38 10:38 Abdomen Pelvis W Con+CT.RAD.BRZ ordered. EDMS EDMS 14:05 14:04 ED course: Patient with lactate 3.2 and abdominal pain. Will continue to treat sp3 with pain medication, IV hydration and place in observation pending surgical consult and general observation.. sp3 14:11 14:06 Mikhail De La Rosa sp3 sp3 15:04 14:06 Observation sp3 sp3 15:04 14:06 Telemetry/MedSurg (observation) sp3 sp3 15:04 14:06 Stable sp3 sp3 15:04 14:06 new sp3 sp3 15:04 14:06 are unchanged sp3 sp3 15:04 14:06 Standard sp3 sp3 15:04 14:06 sp3 sp3 15:04 14:06 Abdominal pain, lactic acidosis, periumbilical pain status post hernia and mesh sp3 surgery sp3 15:04 14:11 Zahida Ferrer sp3 sp3
[2025-08-08 15:44] VITALS: TEMP 98.3
[2025-08-08 15:45] VITALS: BP 127/89; O2SAT 97
== END 2025-08-08 15:22 | disposition home or self-care (01) ==
LOC: ER 10:23
DX: R10.33 Periumbilical pain (principal); E87.20 Acidosis, unspecified; R11.10 Vomiting, unspecified; Z90.49 Acquired absence of other specified parts of digestive tract; Z98.890 Other specified postprocedural states
CPT/HCPCS: 36415; 74177; 80053; 81001; 81025; 83605; 83690; 85025; 87077; 87086; 87088; 87186; 96361; 96374; 96375; 99284; J2405; J7030; Q9967